=== PATIENT | female | born 1985 | race Caucasian/White ===

== ENCOUNTER → 2017-06-14 14:20 | Outpatient (CLI) | payer OTHER, SELFPAY ==
--- NOTE | 2017-06-14 14:22 | US_ITS ---
STUDY: ULTRASOUND BREAST - RIGHT REASON FOR EXAM: Female, 31 years old. Palpable lump in the right breast. TECHNIQUE: Axial and longitudinal images of the RIGHT breast were performed with a high resolution ultrasound transducer. COMPARISON: None. FINDINGS: RIGHT Breast: There is a 7 mm x 6 mm x 3 mm cyst at the 12:00 position of breast at 2 cm some nipple. There is also evidence of a 4 mm x 3 mm x 2 mm cyst at the 1:00 position in the breast at 2 cm some nipple. US/Breast Limited Unilateral IMPRESSION: 2 small cysts are seen. ASSESSMENT CATEGORY: BIRADS Category 2: Benign. A letter regarding these results will be sent to the patient by the facility within 30 days. Electronically Signed: Williams Myers MD at 15:11 EST Tel [phone], Service support ,
== END ==
PROVIDERS: Family Provider Family Medicine; PCP Family Medicine; Visit Provider Obstetrics & Gynecology
DX: N63.10 Unspecified lump in the right breast, unspecified quadrant (principal)
CPT/HCPCS: 76642

== ENCOUNTER → 2018-04-02 10:27 | Outpatient (CLI) | payer OTHER, SELFPAY ==
[2018-04-02 11:35] LABS: hCG Titer Quant., Serum 7 mIU/mL (<9 non-preg)
== END ==
PROVIDERS: Family Provider Family Medicine; PCP Family Medicine; Referring Provider Obstetrics & Gynecology Reproductive Endocrinology; Visit Provider Obstetrics & Gynecology Reproductive Endocrinology
DX: O02.1 Missed abortion (principal)
CPT/HCPCS: 36415; 84702

== ENCOUNTER → 2018-04-09 10:44 | Outpatient (CLI) | payer OTHER, SELFPAY ==
[2018-04-09 11:21] LABS: hCG Titer Quant., Serum 3 mIU/mL (<9 non-preg)
--- OUTSIDE RECORDS SUMMARY | 2018-06-02 16:11 | XMS RPT_ITS ---
:1985 Author Organization OHIP Care Team Providers Name Role Phone Maryann Conley Attending Unavailable Jose Maria Ro Primary Care Unavailable Uyen Freire Attending Unavailable Uyen Freire Referring Unavailable Jose Maria Ro Primary Care Unavailable Uyen Freire Attending Unavailable Uyen Freire Referring Unavailable Jose Maria Ro Primary Care Unavailable UYEN FREIRE Admitting Unavailable UYEN FREIRE Attending Unavailable ARMEN RO Primary Care Unavailable Uyen Freire Attending Unavailable PROBLEMS PROBLEMS DATE TYPE CONDITION / ATTENDING STATUS SOURCE CODE 04/09/2018 Unknown O02.1 - Missed [place], Active [place] / [facility] O02.1(ICD-10) Hospital Repository 03/20/2018 Active MISSED MASEELALL, Active [facility]02.1(ICD-10) [facility] 03/20/2018 Principle MISSED MASEELALL, Active [facility] Diagnosis / O02.1(ICD-10) [facility] Repository PROCEDURES PROCEDURES No Procedure Records FoundRESULTS RESULTS HCG TITER QUANT., Collected: 04/09/2018 Status: F Source: [place] SER[place] 10:47 AM [facility] [place] [place] REPOSITORY TYPE CODE TESTS RESULT OUT OF RANGE REFERENCE UNITS LAB L700.8000 <9 non-preg mIU/mL Normal HCG 3 QUANT. Performed By: #### L700.8000 #### [facility] [address] [place], [place], [address] HCG TITER QUANT., Collected: 04/02/2018 Status: F Source: [place] 11:10 AM [facility] [place] [place] REPOSITORY TYPE CODE TESTS RESULT OUT OF RANGE REFERENCE UNITS LAB L700.8000 <9 non-preg mIU/mL Normal HCG 7 QUANT. Performed By: #### L700.8000 #### [facility] [address] [place], [place], [address] [facility] SURGICAL PATHOLOGY Observed: 03/06/2018 Status: F Source: [place] DEPARTMENT 12:00 AM [facility] REPOSITORY Name MAGI OSWALD Pathologist: MARY ROSENTHAL MD Date of Procedure: 03/06/2018 Date Received: 03/06/2018 Date Reported 03/08/2018 Submitting Physician: UYEN FREIRE MD Location: [facility] Other External # [id number] FINAL DIAGNOSIS A. PRODUCTS OF CONCEPTION: -- IMMATURE CHORIONIC VILLI AND MEMBRANES. -- GESTATIONAL ENDOMETRIUM AND IMPLANTATION SITE. The gross and/or microscopic findings were reviewed in conjunction with pathology resident, Gillian Duffy M.D. Electronically Signed Out By MARY ROSENTAHL MD/SXR By the signature on this report, the individual or group listed as making the Final Interpretation/Diagnosis certifies that they have reviewed this case. Clinical History: Missed Specimens Submitted As: A: PRODUCTS OF CONCEPTION Other Case Numbers [id number] Gross Description: A: Received in formalin, labeled with the patient?s name and hospital number and products of conception, are multiple fragments of jorge soft tissue and multiple fragments of dark brown friable tissue and clotted blood, aggregating to 9.0 x 8.0 x 3.0 cm. Possible villous tissue is identified, measuring 2.0 x 2.0 x 0.5 cm. Casino Cashier sections are submitted in 3 cassettes. RNN Summary of Cassettes: Specimen Label Site A 1 possible villous tissue 2 non-villous tissue 3 additional villous and non-villous tissue rnn/03/07/2018 Performed By: #### [facility] #### [facility] Surgical Pathology Department [address] [facility] [address] BREAST LIMITED Observed: 06/14/2017 Status: F Source: [place] UNILATERAL 2:22 PM [facility] [place] [place] REPOSITORY [facility] Imaging Services [address] [facility] [place] [address] Breast Limited Unilateral MR#: [id number] Acct: [id number] Name: MAGI OSWALD Rep #: [id number] : 1985 F 31 From: Williams Myers MD PCP: Jose Maria Ro MD Status: REG CLI Study: Breast Limited Unilateral Date of Exam: 06/14/17 Exam# [id number] Ordering Dr: Maryann Conley MD STUDY: ULTRASOUND BREAST - RIGHT REASON FOR EXAM: Female, 31 years old. Palpable lump in the right breast. TECHNIQUE: Axial and longitudinal images of the RIGHT breast were performed with a high resolution ultrasound transducer. COMPARISON: None. FINDINGS: RIGHT Breast: There is a 7 mm x 6 mm x 3 mm cyst at the 12:00 position of breast at 2 cm some nipple. There is also evidence of a 4 mm x 3 mm x 2 mm cyst at the 1:00 position in the breast at 2 cm some nipple. US/Breast Limited Unilateral IMPRESSION: 2 small cysts are seen. ASSESSMENT CATEGORY: BIRADS Category 2: Benign. A letter regarding these results will be sent to the patient by the facility within 30 days. Electronically Signed: Williams Myers MD at 15:11 EST Tel [phone], Service support , CC: Jose Maria Ro MD; Maryann Conley MD Facialist: Signed ALLERGIES ALLERGIES DATE TYPE / CODE NAME / CODE REACTION SEVERITY SOURCE 08/23/2016 Drug No Known Unknown [facility] Allergy/4160 Allergies/F00 [place] [address](SNOMED 4601911(RXNOR Repository CT) M) Drug No Known Drug [facility] Allergy/4160 Allergies/900 Hospital [facility](SNOMED 590(RXNORM) Repository CT) ENCOUNTERS ENCOUNTERS ADMIT/DISCHARGE ACCOUNT NUMBER ADMITTING ENCOUNTER LOCATION SOURCE CLASS 04/09/2018 [id number] Ambulatory [facility] ding:LAB Repository 04/02/2018 [id number] Ambulatory [facility] ding:LAB Repository 03/06/2018 [id number] Ambulatory [facility] Repository 03/06/2018/03/06/20 [id number] [facility] Building:[place] [address] UYEN PACURoom: OR [facility] RMBed: [facility] Repository 06/14/2017 [id number] Ambulatory [facility] ding:[facility] Repository PAYERS PAYERS ENCOUNTER GUARANTOR PAYER SUBSCRIBER SOURCE 04/09/2018 MAGI Gar [facility] Insurance:MUTUAL MOTTAYAWDOB: [address] [id number] [place], [place] [address]Uel: EHPPolicy Number: Repository [id number] (HP) Date:1645-11-37[address] [address]YSQCS[place]KF, [place] [address]SH: 04/09/2018 Secondary NOT GIVENUNK [place] Insurance:SELF PAY [facility] Number: Effective Repository Date:2018-04-09 04/02/2018 MAGI Cong [facility] Insurance:MUTUAL MOTTAYAWDOB: [address] [id number] [place], [place] [address]Gsx: EHPPolicy Number: Repository [id number] (HP) Date:0857-59-45WK [facility] [address]JF, [place] [address]ST: 04/02/2018 Secondary NOT GIVENUNK [place] Insurance:SELF PAY [facility] Number: Effective Repository Date:2018-04-02 03/06/2018 MAGI [facility] MOTTAYAWDOB: Insurance:Medical MottayawDOB: [facility] [id number] Repository [facility] Number: [facility]JEROMESAS[facility], [id number] [place] [address]Yor: Date:Plan Name:Health () 03/06/2018 MAGI [facility] Insurance:[facility] MOTTAYAWDOB: [facility] MOTTAYAWDOB: [facility] Number: [id number] Repository [facility] [address] [id number] [facility] [address] Date:2357-60-52KU [address] [place] [address]Rqk: [address], [place] [address]Ebl: [id number]: [phone]) (HP) [phone] (HP) (WP) 06/14/2017 Magi Cong [facility] Rick [facility] Insurance:MUTUAL [place] HealthyawDOB: [address] [id number] [place], [place] [address]Vyy: EHPPolicy Number: Repository [id number] () Date:2042-61-04[address] [address] [id number]: 06/14/2017 Secondary NOT GIVENUNK [place] Insurance:SELF PAY [facility] Number: Effective Repository Date:2017-06-09
== END ==
PROVIDERS: Family Provider Family Medicine; PCP Family Medicine; Referring Provider Obstetrics & Gynecology Reproductive Endocrinology; Visit Provider Obstetrics & Gynecology Reproductive Endocrinology
DX: O02.1 Missed abortion (principal); Z3A.00 Weeks of gestation of pregnancy not specified
CPT/HCPCS: 36415; 84702

== ENCOUNTER → 2018-09-04 13:50 | Outpatient (CLI) | payer OTHER, SELFPAY ==
[2018-08-29 09:31] VITALS: BMI 28.7
--- NOTE | 2018-09-04 13:51 | US_ITS ---
STUDY: SECOND AND THIRD TRIMESTER OBSTETRICAL ULTRASOUND - LIMITED REASON FOR EXAM: Female, 33 years old. Routine survey. LMP: May 20, 2018. PRIOR ULTRASOUND: None. TECHNIQUE: Transabdominal and Transvaginal TECHNICAL QUALITY: Adequate. FINDINGS: There is a single intrauterine fetus. The fetus is in a cephalic presentation. There is demonstrated cardiac activity with a heart rate of 156 bpm. There is a normal amniotic fluid volume. The largest amniotic fluid pocket measures 5.1 cm x 1.9 cm. The amniotic fluid index (NARAYAN) is normal. The placenta is posterior and low lying but not previa in location. There are Grade 0 placental changes. The cervix measures 3.2 cm in length. BIOMETRY: BPD: 3.01 cm: 15 weeks, 4 days HC: 11.65 cm: 15 weeks, 6 days AC: 10.08 cm: 16 weeks, 1 days FL: 1.8 cm: 15 weeks, 3 days Age by LMP: 15 weeks, 2 days. FATOU by LMP: February 24, 2019. age by current US: 15 weeks, 5 days. FATOU by current US: February 21, 2019. Estimated weight: 133 grams, +/- 19 grams, 69 percentile. Gender: Indeterminant US/OB Limited With Biometrics IMPRESSION: Single live intrauterine gestation with a mean gestational age of 15 weeks and 5 days. There is a posterior low-lying placenta. Follow-up is recommended. Electronically Signed: Williams Myers, at 13:09 EDT , Service support ,
== END ==
PROVIDERS: Family Provider Family Medicine; PCP Family Medicine; Referring Provider Nurse Practitioner Women's Health; Visit Provider Nurse Practitioner Women's Health
DX: O09.90 Supervision of high risk pregnancy, unspecified, unspecified trimester (principal); Z3A.00 Weeks of gestation of pregnancy not specified
CPT/HCPCS: 76816

== ENCOUNTER → 2018-11-21 14:50 | Outpatient (CLI) | payer OTHER, SELFPAY ==
[2018-11-21 14:44] VITALS: BMI 29.6
[2018-11-21 15:46] LABS: Absolute Lymphocyte Count 1.82 X10^3/uL (0.83-4.51); Absolute Neutrophil Count 10.1 X10^3/uL (2.0-7.7); Basophil# 0.03 X10^3/uL; Basophil% 0.2 % (0-1); Eosinophil# 0.11 X10^3/uL; Eosinophils% 0.9 % (0-5); Hematocrit 34.2 % (37-47); Hemoglobin 11.4 g/dL (12.0-15.0); Lymphocyte # 1.82 X10^3/ul (4.0); Lymphocyte % 14.3 % (19-41); Mean Corp Hgb Conc 33.3 g/dL (32-36); Mean Corpuscular Hgb 31.7 pg (27.0-32.0); Mean Platelet Vol. 10.3 fl (6.2-12.0); Monocyte# 0.58 X10^3/uL; Monocyte% 4.6 % (0-10); NRBC Flagged by Analyzer 0 % (0-5); Neutrophil # 10.07 X10^3/uL (2.7-7.7); Neutrophil % 79.1 % (47-70); Platelet Count 179 K/mm3 (150-450); RBC Distribution Width CV 13.1 % (11.6-14.6); RBC Distribution Width SD 45.1 fl (35.1-43.9); White Blood Count 12.7 K/mm3 (4.4-11.0)
[2018-11-21 15:55] LABS: Glucose Challenge Gest 1H 50g 114 mg/dL (70-140)
== END ==
PROVIDERS: Family Provider Family Medicine; PCP Family Medicine; Referring Provider Nurse Practitioner Women's Health; Visit Provider Nurse Practitioner Women's Health
DX: O09.90 Supervision of high risk pregnancy, unspecified, unspecified trimester (principal); Z3A.00 Weeks of gestation of pregnancy not specified
CPT/HCPCS: 36415; 82950; 85025

== ENCOUNTER 2019-01-03 15:04 | Outpatient (CLI) | payer OTHER, SELFPAY ==
[2018-12-25 09:19] VITALS: BMI 29.6
[2019-01-03 15:41] VITALS: BMI 33.3
[2019-01-03 16:17] LABS: Absolute Lymphocyte Count 2.12 X10^3/uL (0.83-4.51); Absolute Neutrophil Count 10.6 X10^3/uL (2.0-7.7); Basophil# 0.04 X10^3/uL; Basophil% 0.3 % (0-1); Eosinophil# 0.15 X10^3/uL; Eosinophils% 1.1 % (0-5); Hematocrit 33.1 % (37-47); Hemoglobin 11.2 g/dL (12.0-15.0); Lymphocyte # 2.12 X10^3/ul (4.0); Lymphocyte % 14.9 % (19-41); Mean Corp Hgb Conc 33.8 g/dL (32-36); Mean Corpuscular Hgb 31.7 pg (27.0-32.0); Mean Corpuscular Volume 93.8 fL (81-99); Mean Platelet Vol. 10.6 fl (6.2-12.0); Monocyte# 1.06 X10^3/uL; Monocyte% 7.5 % (0-10); NRBC Flagged by Analyzer 0 % (0-5); Neutrophil # 10.63 X10^3/uL (2.7-7.7); Neutrophil % 74.8 % (47-70); Platelet Count 176 K/mm3 (150-450); RBC Distribution Width CV 12.6 % (11.6-14.6); RBC Distribution Width SD 42.8 fl (35.1-43.9); Red Blood Count 3.53 M/mm3 (4.2-5.4); White Blood Count 14.2 K/mm3 (4.4-11.0)
[2019-01-03 16:51] LABS: Fibrinogen 465 mg/dl (203-444)
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
== END 2019-01-03 19:57 | disposition home or self-care (01) ==
LOC: WPOUT 15:06 → WP 15:40
PROVIDERS: Family Provider Family Medicine; PCP Family Medicine; Referring Provider Obstetrics & Gynecology; Visit Provider Obstetrics & Gynecology
DX: Z04.1 Encounter for examination and observation following transport accident (principal); O26.899 Other specified pregnancy related conditions, unspecified trimester; Z3A.00 Weeks of gestation of pregnancy not specified
CPT/HCPCS: 36415; 59025; 59050; 85025; 85384; 99218; G0378

== ENCOUNTER → 2019-02-01 13:17 | Outpatient (CLI) | payer OTHER, SELFPAY ==
[2019-02-01 10:08] VITALS: BMI 33.3
== END ==
PROVIDERS: Family Provider Family Medicine; PCP Family Medicine; Visit Provider Obstetrics & Gynecology
DX: Z34.93 Encounter for supervision of normal pregnancy, unspecified, third trimester (principal); Z3A.36 36 weeks gestation of pregnancy
CPT/HCPCS: 87081

== ENCOUNTER 2019-02-28 15:20 | Outpatient (CLI) | payer OTHER, SELFPAY ==
[2019-01-24 10:29] VITALS: BMI 33.3
[2019-02-28 14:36] VITALS: BMI 33.3
[2019-02-28 15:46] VITALS: BMI 35.6
[2019-02-28 15:51] LABS: Protein, Urine (Random) 28.6 mg/dL (<11.9); Protein:Creat Ratio 117 mg/g CRE (0-200)
[2019-02-28] MEDS: 0.9% Saline Lock 10 ML Syringe IV (16:28)
[2019-02-28 18:24] LABS: Absolute Lymphocyte Count 1.86 X10^3/uL (0.83-4.51); Basophil# 0.03 X10^3/uL; Basophil% 0.2 % (0-1); Eosinophils% 0.8 % (0-5); Hematocrit 35.5 % (37-47); Hemoglobin 11.9 g/dL (12.0-15.0); Lymphocyte # 1.86 X10^3/ul (4.0); Lymphocyte % 15.3 % (19-41); Mean Corp Hgb Conc 33.5 g/dL (32-36); Mean Corpuscular Hgb 31.6 pg (27.0-32.0); Mean Corpuscular Volume 94.2 fL (81-99); Mean Platelet Vol. 11.2 fl (6.2-12.0); Monocyte# 1.03 X10^3/uL; Monocyte% 8.5 % (0-10); NRBC Flagged by Analyzer 0 % (0-5); Neutrophil % 74.4 % (47-70); Platelet Count 167 K/mm3 (150-450); RBC Distribution Width CV 13.4 % (11.6-14.6); RBC Distribution Width SD 45.4 fl (35.1-43.9); Red Blood Count 3.77 M/mm3 (4.2-5.4); White Blood Count 12.1 K/mm3 (4.4-11.0)
[2019-02-28 18:40] LABS: Prothrombin Time (Protime)PT. 12.6 SECONDS (11.7-14.9)
[2019-02-28 18:41] LABS: Partial Thromboplast Time 24.4 Seconds (24.1-36.2)
[2019-02-28 19:10] LABS: AST(SGOT) 18 U/L (15-37); Alanine Aminotransfer ALT/SGPT 22 U/L (13-56); Creatinine, Serum 0.73 mg/dL (0.55-1.02); EST Glomerular Filtration Rate 98 mL/min (>60); Est Glom Filt Rate - Afr Amer 119 mL/min (>60); Estimated Creatinine Clearance 107.59 ml/min; Uric Acid 7.3 mg/dL (2.6-6.0)
--- NOTE | 2019-03-02 01:40 | OB.TRI.PN_ITS ---
Progress Notes Date of Service: 02/28/19 Progress Note: Patient presents for triage evaluation secondary to elevated blood pressure and FHT: 130 Moderate variability reactive no decelerations category I tracing [place]: Irregular contractions Assessment and plan: Elevated blood pressure and initially in the office all repeat blood pressures normal here and negative proteinuria and normal labs reactive NST, reassuring maternal and status patient discharged to home to follow-up induction of labor at 41 weeks. See problem list details for additional plan information. Laboratory Studies: Laboratory Tests 02/28/19 02/28/19 02/28/19 Range/Units 16:15 16:15 16:15 WBC (4.4-11.0) K/mm3 RBC (4.2-5.4) M/mm3 Hgb (12.0-15.0) g/dL Hct (37-47) % MCV (81-99) fL MCH (27.0-32.0) pg MCHC (32-36) g/dL RDW Std Deviation (35.1-43.9) fl RDW Coeff of Suad (11.6-14.6) % Plt Count (150-450) K/mm3 MPV (6.2-12.0) fl Immature Gran % (Auto) (0.0-0.9) % Neut % (Auto) (47-70) % Lymph % (Auto) (19-41) % [place] % (Auto) (0-10) % Eos % (Auto) (0-5) % Baso % (Auto) (0-1) % Absolute Neuts (auto) (2.0-7.7) X10^3/uL Absolute Lymphs (auto) (0.83-4.51) X10^3/uL Nucleated RBC % (0-5) % PT 12.6 (11.7-14.9) SECONDS INR 1.0 APTT 24.4 (24.1-36.2) Seconds Creatinine 0.73 (0.55-1.02) mg/dL Estim Creat Clear Calc 107.59 ml/min Est GFR (MDRD) Af Amer 119 (>60) mL/min Est GFR (MDRD) Non-Af 98 (>60) mL/min Uric Acid 7.3 H (2.6-6.0) mg/dL AST 18 (15-37) U/L ALT 22 (13-56) U/L U Random Total Protein (<11.9) mg/dL Urine Creatinine (NO RANGE EST.) mg/dL Protein/Creatinin Ratio (0-200) mg/g CRE Blood Type O POSITIVE Antibody Screen NEGATIVE 02/28/19 02/28/19 Range/Units 16:15 15:00 WBC 12.1 H (4.4-11.0) K/mm3 RBC 3.77 L (4.2-5.4) M/mm3 Hgb 11.9 L (12.0-15.0) g/dL Hct 35.5 L (37-47) % MCV 94.2 (81-99) fL MCH 31.6 (27.0-32.0) pg MCHC 33.5 (32-36) g/dL RDW Std Deviation 45.4 H (35.1-43.9) fl RDW Coeff of Suad 13.4 (11.6-14.6) % Plt Count 167 (150-450) K/mm3 MPV 11.2 (6.2-12.0) fl Immature Gran % (Auto) 0.800 (0.0-0.9) % Neut % (Auto) 74.4 H (47-70) % Lymph % (Auto) 15.3 L (19-41) % [place] % (Auto) 8.5 (0-10) % Eos % (Auto) 0.8 (0-5) % Baso % (Auto) 0.2 (0-1) % Absolute Neuts (auto) 9.0 H (2.0-7.7) X10^3/uL Absolute Lymphs (auto) 1.86 (0.83-4.51) X10^3/uL Nucleated RBC % 0 (0-5) % PT (11.7-14.9) SECONDS INR APTT (24.1-36.2) Seconds Creatinine (0.55-1.02) mg/dL Estim Creat Clear Calc ml/min Est GFR (MDRD) Af Amer (>60) mL/min Est GFR (MDRD) Non-Af (>60) mL/min Uric Acid (2.6-6.0) mg/dL AST (15-37) U/L ALT (13-56) U/L U Random Total Protein 28.6 H (<11.9) mg/dL Urine Creatinine 244.00 (NO RANGE EST.) mg/dL Protein/Creatinin Ratio 117 (0-200) mg/g CRE Blood Type Antibody Screen - Problem List (1) Elevated blood pressure affecting in third trimester, antepartum Status: Acute Multi Select Codes - Urinary/Genital Urinary/Genital CPT Codes: 26490-07 non-stress test Interp
== END 2019-02-28 19:45 | disposition home or self-care (01) ==
LOC: WPOUT 03-01 09:24 → WP 03-01 09:24
PROVIDERS: Family Provider Family Medicine; PCP Family Medicine; Referring Provider Obstetrics & Gynecology; Visit Provider Obstetrics & Gynecology
DX: O26.893 Other specified pregnancy related conditions, third trimester (principal); R03.0 Elevated blood-pressure reading, without diagnosis of hypertension; Z3A.00 Weeks of gestation of pregnancy not specified
CPT/HCPCS: 59025; 82565; 82570; 84156; 84450; 84460; 84550; 85025; 85610; 85730; 86850; 86900; 86901; A4216

== ENCOUNTER 2019-03-03 08:00 | Inpatient (IN) | payer OTHER, SELFPAY ==
[2019-03-03 08:32] VITALS: BMI 35.6
[2019-03-03 08:46] LABS: Absolute Lymphocyte Count 1.82 X10^3/uL (0.83-4.51); Absolute Neutrophil Count 8.5 X10^3/uL (2.0-7.7); Basophil# 0.04 X10^3/uL; Basophil% 0.3 % (0-1); Eosinophil# 0.12 X10^3/uL; Hematocrit 34.8 % (37-47); Hemoglobin 11.8 g/dL (12.0-15.0); Lymphocyte # 1.82 X10^3/ul (4.0); Lymphocyte % 15.6 % (19-41); Mean Corp Hgb Conc 33.9 g/dL (32-36); Mean Corpuscular Hgb 31.6 pg (27.0-32.0); Mean Platelet Vol. 10.8 fl (6.2-12.0); Monocyte# 1.05 X10^3/uL; NRBC Flagged by Analyzer 0 % (0-5); Neutrophil # 8.53 X10^3/uL (2.7-7.7); Neutrophil % 73.3 % (47-70); Platelet Count 164 K/mm3 (150-450); RBC Distribution Width CV 13.4 % (11.6-14.6); RBC Distribution Width SD 44.9 fl (35.1-43.9); Red Blood Count 3.74 M/mm3 (4.2-5.4); White Blood Count 11.7 K/mm3 (4.4-11.0)
[2019-03-03] MEDS: 0.9% Saline Lock 10 ML Syringe IV ×2 (09:07→21:06)
[2019-03-03] MEDS: miSOPROStol 25 MCG TABLET VAGINAL (09:12)
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
[2019-03-03] MEDS: miSOPROStol 50 MCG TABLET VAGINAL (13:19)
[2019-03-03] MEDS: Acetaminophen 325 MG Tablet PO (17:06)
[2019-03-03] MEDS: Lactated Ringers 1,000 ML 50 ML IV (17:53)
[2019-03-03] MEDS: Lactated Ringers 500 ML 999 ML IV ×3 (18:03→22:33)
[2019-03-03] MEDS: Oxytocin 30 units/NS 500 ml 30 UNITS/500 ML IV.SOLN IV (18:45)
[2019-03-03] MEDS: 0.9% Normal Saline 100 ML IV.SOLN. INTRA-UTER (18:48)
[2019-03-03] MEDS: Nalbuphine 10 MG/ML Ampul IV (18:59)
[2019-03-03] MEDS: Ondansetron 4 MG/2 ML Vial IV (21:06)
[2019-03-03] MEDS: fentaNYL-bupivacaine (epidural) 100 ML BAG EPIDURAL (22:23)
[2019-03-03] MEDS: ePHEDrine Sulfate 50 MG/ML Ampul 10 MG IM (22:42)
[2019-03-03] MEDS: ePHEDrine Sulfate 50 MG/ML Ampul 10 MG IV (22:45)
[2019-03-04] VITALS (12 sets, daily range): BP systolic 98–138; BP diastolic 62–85; PULSE 112–134; RESP 16–20; TEMP 36.2–37.1; O2SAT 97–99
[2019-03-04] MEDS: fentaNYL-bupivacaine (epidural) 100 ML BAG EPIDURAL ×3 (03:09→13:06)
[2019-03-04] MEDS: 0.9% Saline Lock 10 ML Syringe IV ×2 (05:34→16:06)
--- NOTE | 2019-03-04 06:27 | PCM.PN.BLA ---
Progress Note Patient is status post Cytotec and Akers bulb. Akers bulb out and patient has made some further cervical change. heart tones category 1 overall reassuring. AROM blood-tinged fluid. Bleeding suspected to be from cervical effacement and dilation. Overall reassuring status. Reviewed positioning suggestions with nursing and will proceed with Pitocin per protocol. IUPC placed.
[2019-03-04] MEDS: Lactated Ringers 1,000 ML 200 ML IV ×2 (08:38→13:49)
[2019-03-04] MEDS: Mag Hydrox/Al Hydrox/Simeth 30 ML UDC PO (11:15)
[2019-03-04] MEDS: Ondansetron 4 MG/2 ML Vial IV (16:06)
[2019-03-04] MEDS: Lactated Ringers 500 ML 999 ML IV ×2 (16:25→17:25)
[2019-03-04] MEDS: Sodium Citrate/Citric Acid 30 ML UDC PO (17:36)
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
[2019-03-04] MEDS: Cefazolin 2 GM in 0.9% Normal Saline 100 ML IV (18:01)
--- NOTE | 2019-03-04 18:38 | OP.PCM_ITS ---
Problem List (1) Post-dates Status: Acute (2) Influenza vaccine administered Status: Acute Comment: 02/08/2019 (3) Supervision of high risk , antepartum Status: Acute Comment: PRR FATOU 02/24/19 girl Ronit Spouse: Rick Frozen Embryo transfer (4) Status: Acute Qualifiers: Comment: RGI transfer, nl anatomy and echo. (5) Infertility Status: Acute Comment: IVF Report of Operation Date of Procedure: 03/04/19 Pre-Operative Diagnosis: iol postdates, failed IOL, tachycardia cat II tracing, suspected cpd Post-Operative Diagnosis: same plus confirmed CPD Surgery/Procedure Performed:: Primary low transverse section Description of Surgical Findings:: Narrow pelvis with narrow pelvic inlet fetus ROP presentation wealth management advisor: Cris Velasco Type of Anesthesia:: Epidural Special Medications: none Specimen's removed: Female 8 pounds 10 ounces Drains: elder Estimated Blood Loss (mL): 1200 Fluids Replaced: Crystalloid Description of Procedure: Patient presented for induction of labor secondary to postdates. She underwent 12 hours of Cytotec cervical ripening followed by Elder bulb and Pitocin for induction of labor. Membranes were ruptured artificially and labor progressed. Patient experienced an arrest of dilation at 6 to 7 cm for 6 hours. Pitocin was unable to be used the last 2 hours of that due to tachycardia and intermittent periods of minimal variability. After reevaluation and intervention tachycardia was persistent and baseline went from 180s up to 210s and CPD was suspected due to arrest of descent in the pelvis and dilation. Significant persistent cervical swelling was noted. It was discussed with the patient and her and the decision to proceed with a primary was made. The patient was placed in the dorsal supine position with leftward tilt. Patient was prepped and draped in the normal sterile fashion. Pfannenstiel skin incision was made with the scalpel and carried through to the underlying layer of fascia with the scalpel. Fascia was nicked in the midline and the incision extended laterally. The rectus bellies were dissected off superiorly and inferiorly with out complication bluntly. The peritoneum was entered digitally. The incision was stretched and a low transverse uterine incision was made with the scalpel. The infant's head was delivered atraumatically followed by the anterior and posterior shoulders without complication the rest of the infant delivered. The cord was clamped and cut and the infant was handed off to awaiting nurse. The placenta was delivered spontaneously immediately following and was noted to be intact and have a three-vessel cord. The uterus was exteriorized cleared of all clots and debris. The uterine incision was noted to be significantly inferior however no cervical extension was noted. Initial blood loss was more than usual due to large sinuses and the uterine vessels which became hemostatic with closure. The incision was closed in a single layer closure due to the close proximity of the bladder using #1 Monocryl. The o varies and fallopian tubes were noted to be within normal limits. The uterus was returned to the maternal abdomen and gutters were cleared of all clots and debris. The peritoneum was closed with 3-0 Monocryl in a running fashion. Gloves were changed prior to fascial closure. Fascia was closed with 0 PDS in a running fashion. Subcutaneous tissue was copiously irrigated and the skin was closed with 3-0 Monocryl in a subcuticular fashion. Mepilex dressing was applied without complication. Patient was taken to recovery in stable condition. Grafts/Implants Used: none - Complications Mild hemorrhage due to intraoperative blood loss - Admit VTE Documentation VTE Present on Admission: No Multi Select Codes - Urinary/Genital Urinary/Genital CPT Codes: 42137 Delivery [facility]
[2019-03-04] MEDS: Oxytocin 30 units/NS 500 ml 30 UNITS/500 ML IV.SOLN 167 UNITS IV (18:58)
--- NOTE | 2019-03-04 21:30 | NURSING ---
Epidural catheter removed, blue tip intact.
[2019-03-05] VITALS (14 sets, daily range): BP systolic 103–122; BP diastolic 50–69; PULSE 95–118; RESP 16–18; TEMP 36.6–37.3; O2SAT 97–100
[2019-03-05] MEDS: Ketorolac 30 MG/ML Syringe IV ×3 (00:17→13:11)
[2019-03-05] MEDS: Lactated Ringers 1,000 ML 100 ML IV (00:17)
[2019-03-05] MEDS: Lactated Ringers 500 ML 999 ML IV (02:30)
--- NOTE | 2019-03-05 02:30 | NURSING ---
500cc fluid bolus started at this time for low urine output less than 30/hr over the past 2 hours. Previous verbal order from Dr. Carmona for fluid bolus if urine output inadequate. RN will continue to assess closely overnight.
[2019-03-05 06:09] LABS: Absolute Lymphocyte Count 1.42 X10^3/uL (0.83-4.51); Absolute Neutrophil Count 11.1 X10^3/uL (2.0-7.7); Basophil# 0.02 X10^3/uL; Basophil% 0.1 % (0-1); Eosinophil# 0.07 X10^3/uL; Eosinophils% 0.5 % (0-5); Lymphocyte # 1.42 X10^3/ul (4.0); Lymphocyte % 10.3 % (19-41); Mean Corp Hgb Conc 33.3 g/dL (32-36); Mean Corpuscular Hgb 32.4 pg (27.0-32.0); Mean Corpuscular Volume 97.2 fL (81-99); Mean Platelet Vol. 10.6 fl (6.2-12.0); NRBC Flagged by Analyzer 0 % (0-5); Neutrophil # 11.11 X10^3/uL (2.7-7.7); Neutrophil % 80.6 % (47-70); Platelet Count 127 K/mm3 (150-450); RBC Distribution Width CV 13.6 % (11.6-14.6); RBC Distribution Width SD 47.4 fl (35.1-43.9); Red Blood Count 2.47 M/mm3 (4.2-5.4); White Blood Count 13.8 K/mm3 (4.4-11.0)
[2019-03-05] MEDS: Senna/Docusate Sodium 1 Tablet PO (06:13)
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
[2019-03-05] MEDS: 0.9% Saline Lock 10 ML Syringe IV (13:11)
[2019-03-05 13:37] LABS: Absolute Lymphocyte Count 1.56 X10^3/uL (0.83-4.51); Absolute Neutrophil Count 10.3 X10^3/uL (2.0-7.7); Basophil# 0.02 X10^3/uL; Basophil% 0.2 % (0-1); Eosinophil# 0.09 X10^3/uL; Eosinophils% 0.7 % (0-5); Hematocrit 24.1 % (37-47); Hemoglobin 7.9 g/dL (12.0-15.0); Lymphocyte # 1.56 X10^3/ul (4.0); Lymphocyte % 11.9 % (19-41); Mean Corp Hgb Conc 32.8 g/dL (32-36); Mean Corpuscular Hgb 31.6 pg (27.0-32.0); Mean Corpuscular Volume 96.4 fL (81-99); Mean Platelet Vol. 10.4 fl (6.2-12.0); Monocyte# 1.04 X10^3/uL; NRBC Flagged by Analyzer 0 % (0-5); Neutrophil # 10.26 X10^3/uL (2.7-7.7); Neutrophil % 78.4 % (47-70); Platelet Count 130 K/mm3 (150-450); RBC Distribution Width CV 13.7 % (11.6-14.6); RBC Distribution Width SD 47.7 fl (35.1-43.9); White Blood Count 13.1 K/mm3 (4.4-11.0)
[2019-03-05] MEDS: oxyCODONE 5 MG Tablet PO ×2 (17:21→21:45)
[2019-03-05] MEDS: Naproxen 250 MG Tablet 500 MG PO (18:32)
[2019-03-06] MEDS: Naproxen 250 MG Tablet 500 MG PO ×3 (02:07→22:43)
[2019-03-06 02:25] VITALS: PULSE 110; RESP 16; TEMP 37.2
[2019-03-06] MEDS: oxyCODONE 5 MG Tablet PO ×3 (05:39→18:49)
[2019-03-06 06:12] LABS: Hematocrit 23.9 % (37-47); Hemoglobin 7.8 g/dL (12.0-15.0); Mean Corp Hgb Conc 32.6 g/dL (32-36); Mean Corpuscular Hgb 31.6 pg (27.0-32.0); Mean Corpuscular Volume 96.8 fL (81-99); Mean Platelet Vol. 10.7 fl (6.2-12.0); Platelet Count 153 K/mm3 (150-450); RBC Distribution Width CV 13.7 % (11.6-14.6); RBC Distribution Width SD 47.8 fl (35.1-43.9); Red Blood Count 2.47 M/mm3 (4.2-5.4); White Blood Count 14.2 K/mm3 (4.4-11.0)
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
[2019-03-06 08:26] VITALS: BP 119/65; PULSE 109; RESP 16; TEMP 36.8
[2019-03-06] MEDS: Prenatal Vits Tablet 1 TABLET PO (10:07)
[2019-03-06] MEDS: Senna/Docusate Sodium 1 Tablet PO (10:07)
[2019-03-06 13:04] VITALS: BP 108/61; PULSE 86; RESP 15; TEMP 36.7
--- NOTE | 2019-03-06 13:40 | NURSING ---
all charting done by student nurse reviewed and it is complete.
[2019-03-06] MEDS: Ferrous Sulfate 325 MG Tablet PO (14:40)
[2019-03-06 19:52] VITALS: BP 130/75; PULSE 101; RESP 18; TEMP 36.9; O2SAT 97
[2019-03-07 02:11] VITALS: BP 119/68; PULSE 103; RESP 16; TEMP 36.4; O2SAT 97
[2019-03-07] MEDS: oxyCODONE 5 MG Tablet PO (03:51)
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
--- NOTE | 2019-03-07 07:48 | DCINST_ITS ---
Additional Instructions: If you experience any of the following, contact your healthcare provider. * Bleeding that soaks a pad every hour for 2 hours * Fever 100.4 or higher * Unrelieved incision or abdominal pain * Swelling, redness, discharge or bleeding from your incision or episiotomy site * Your incision begins to separate * Problems urinating (including inability to urinate or burning while urinating). * Visual changes * Severe headache * Flu-like symptoms * Pain or redness in one of both of your breasts * Pain, warmth, tenderness or swelling in your legs, especially the calf area * Frequent nausea and vomiting * Symptoms of depression or anxiety If you experience any of the following, call 911 or go to the nearest Emergency Room. * Chest pain * Problems breathing * Seizure activity * Partial or complete paralysis of a body part, slurred speech, weakness or drooping of the face, or a sudden inability to walk or hold your balance Allergies/Adverse Reactions: Allergies ondansetron [From Zofran] Allergy (Verified 03/05/19 14:44) Hives Medications to take at Discharge vitamin,calcium,srjtdwlc-pzpp-rewxz acid tablet 1 tab PO DAILY 08/29/18 Naproxen [Naprosyn] 500 mg PO BID PRN PRN #60 tab 03/07/19 Oxycodone HCl/Acetaminophen [Percocet 5/325] 1 - 2 tablet PO Q4H PRN PRN 3 Days #15 tablet 03/07/19 The following prescriptions were given: Naproxen [Naprosyn] 500 mg PO BID PRN PRN #60 tab PRN Reason: Pain Transmission Status: Pending to [facility] Oxycodone HCl/Acetaminophen [Percocet 5/325] 1 - 2 tablet PO Q4H PRN PRN 3 Days #15 tablet PRN Reason: Pain Transmission Status: Sent to [facility] Follow-Up: Call to make an appointment with your doctor for an incision check in 1-2 weeks. You will also need a 6 week post- follow up appointment. Test results from this visit will be discussed in further detail at your follow- up appointment, if applicable. Primary Care Physician: Jose Maria Mcdonough MD [Primary Care Provider] -
--- NOTE | 2019-03-07 07:48 | PCM.DCCSEC ---
Additional Instructions: If you experience any of the following, contact your healthcare provider. Bleeding that soaks a pad every hour for 2 hours Fever 100.4 or higher Unrelieved incision or abdominal pain Swelling, redness, discharge or bleeding from your incision or episiotomy site Your incision begins to separate Problems urinating (including inability to urinate or burning while urinating). Visual changes Severe headache Flu-like symptoms Pain or redness in one of both of your breasts Pain, warmth, tenderness or swelling in your legs, especially the calf area Frequent nausea and vomiting Symptoms of depression or anxiety If you experience any of the following, call 911 or go to the nearest Emergency Room. Chest pain Problems breathing Seizure activity Partial or complete paralysis of a body part, slurred speech, weakness or drooping of the face, or a sudden inability to walk or hold your balance Allergies/Adverse Reactions: Allergies ondansetron [From Zofran] Allergy (Verified 03/05/19 14:44) Hives Medications to take at Discharge vitamin,calcium,oxtfbeub-jymy-sqlrx acid tablet 1 tab PO DAILY 08/29/18 Naproxen [Naprosyn] 500 mg PO BID PRN PRN #60 tab 03/07/19 Oxycodone HCl/Acetaminophen [Percocet 5/325] 1 - 2 tablet PO Q4H PRN PRN 3 Days #15 tablet 03/07/19 The following prescriptions were given: Naproxen [Naprosyn] 500 mg PO BID PRN PRN #60 tab PRN Reason: Pain Transmission Status: Pending to [facility] Oxycodone HCl/Acetaminophen [Percocet 5/325] 1 - 2 tablet PO Q4H PRN PRN 3 Days #15 tablet PRN Reason: Pain Transmission Status: Sent to [facility] Follow-Up: Call to make an appointment with your doctor for an incision check in 1-2 weeks. You will also need a 6 week post- follow up appointment. Test results from this visit will be discussed in further detail at your follow-up appointment, if applicable. Primary Care Physician: Jose Maria Mcdonough MD [Primary Care Provider] -
--- NOTE | 2019-03-07 07:49 | DS.PCM_ITS ---
Discharge Date and Diagnosis - Problem List Patient Problems: Active and Suspected Problems (Last Reviewed 02/28/19 @ 14:35 by [place]) Post-dates (Acute) Date of Admission: 03/24/17 - Primary Discharge Diagnosis Active and Suspected Problems (Last Reviewed 02/28/19 @ 14:35 by [place]) Post-dates (Acute) Hospital Course and Treatment Consultations 03/03/19 08:23 Consult: Anesthesia Routine Comment: Reason For Exam: Labor Operations: - - Primary c section, CPD, FTP. Routine post CS care. Summary of Care Provided: The patient is a 33 year old F [] Patient Problems: Active and Suspected Problems (Last Reviewed 02/28/19 @ 14:35 by [place]) Post-dates (Acute) - Physical Exam Vitals/I&O's: Vital Signs Temp Pulse Resp BP Pulse Ox 97.6 F L 103 H 16 119/68 97 03/07/19 02:11 03/07/19 02:11 03/07/19 02:11 03/07/19 02:11 03/07/19 02:11 Oxygen Delivery Method Room Air Weight: 227 lb 8.273 oz Body Mass Index (BMI) 35.6 Intake and Output for Last 24 Hours 03/05/19 03/06/19 03/07/19 23:59 23:59 23:59 Intake Total 2000.00 / 2000.00 Output Total 3300 / 3300 500 / 500 Balance -1300.00 / -1300.00 -500 / -500 Current Medications Acetaminophen (Tylenol) 1,000 mg PO Q8H PRN PRN PRN Reason: Pain Score 1-3/10 Bisacodyl (Dulcolax) 10 mg RECTAL UD PRN PRN Reason: If no BM Dibucaine (Dibucaine) 1 applic TOPICAL TID PRN PRN; Protocol PRN Reason: Discomfort Ferrous Sulfate (Ferrous Sulfate) 325 mg PO DAILY@1200 RAEANN Last Admin: 03/06/19 14:40 Dose: 325 mg Documented by: Hydrocortisone (Hytone) 1 applic TOPICAL TID PRN PRN; Protocol PRN Reason: Discomfort Methylergonovine Maleate (Methergine) 0.2 mg IM X1 PRN PRN Reason: Excess bleeding/uterine atony Naproxen (Naprosyn) 500 mg PO Q8H PRN PRN PRN Reason: Pain Score 1-3/10 Last Admin: 03/06/19 22:43 Dose: 500 mg Documented by: Oxycodone HCl (Oxyir) 5 - 10 mg PO Q4H PRN PRN PRN Reason: Pain Score 4-10/10 Last Admin: 03/07/19 03:51 Dose: 10 mg Documented by: Multivit/Folic Acid/Iron (Prenatabs Fa) 1 tablet PO DAILY@1200 RAEANN Last Admin: 03/06/19 10:07 Dose: 1 tablet Documented by: Senna/Docusate Sodium (Senokot-S, Georgina-Colace) 1 - 2 tablet PO DAILY PRN PRN PRN Reason: Constipation Last Admin: 03/06/19 10:07 Dose: 2 tablet Documented by: Simethicone (Mylicon) 80 mg PO PCHS PRN PRN Reason: Indigestion/Stomach pain Sodium Chloride () 5 - 15 ml IV UD PRN PRN Reason: SALINE FLUSH Last Admin: 03/05/19 13:11 Dose: 10 ml Documented by: Home Medications: Medications to take at Discharge vitamin,calcium,qhjehmum-ugas-mopmw acid tablet 1 tab PO DAILY 08/29/18 Naproxen [Naprosyn] 500 mg PO BID PRN PRN #60 tab 03/07/19 Oxycodone HCl/Acetaminophen [Percocet 5/325] 1 - 2 tablet PO Q4H PRN PRN 3 Days #15 tablet 03/07/19 Following Prescrptions Were Given to Patient: Naproxen [Naprosyn] 500 mg PO BID PRN PRN #60 tab PRN Reason: Pain Transmission Status: Pending to [facility] Oxycodone HCl/Acetaminophen [Percocet 5/325] 1 - 2 tablet PO Q4H PRN PRN 3 Days #15 tablet PRN Reason: Pain Transmission Status: Sent to [facility] Primary Care Physician: Jose Maria Mcdonough MD [Primary Care Provider] - Medical Necessity - Tobacco Use Smoking Status: Former smoker Meaningful Use Info Meaningful Use Diagnoses (Choose all that apply): None applicable
[2019-03-07 09:15] VITALS: BP 108/66; PULSE 98; RESP 20; TEMP 37.3; O2SAT 96
[2019-03-07] MEDS: Naproxen 250 MG Tablet 500 MG PO (09:20)
[2019-03-07] MEDS: Prenatal Vits Tablet 1 TABLET PO (13:00)
[2019-03-07] MEDS: Senna/Docusate Sodium 1 Tablet PO (13:01)
[2019-03-07] MEDS: Ferrous Sulfate 325 MG Tablet PO (13:01)
== END 2019-03-07 13:25 | disposition home or self-care (01) | DRG 787 ==
PROVIDERS: Nurse Practitioner Women's Health; Admitting Provider Obstetrics & Gynecology; Family Provider Family Medicine; PCP Family Medicine; Visit Provider Obstetrics & Gynecology
DX: O48.0 Post-term pregnancy (principal); O72.1 Other immediate postpartum hemorrhage; O33.9 Maternal care for disproportion, unspecified; O61.9 Failed induction of labor, unspecified; O62.0 Primary inadequate contractions; O76 Abnormality in fetal heart rate and rhythm complicating labor and delivery; R03.0 Elevated blood-pressure reading, without diagnosis of hypertension; K21.9 Gastro-esophageal reflux disease without esophagitis; Z87.891 Personal history of nicotine dependence; Z3A.41 41 weeks gestation of pregnancy; Z37.0 Single live birth
CPT/HCPCS: 59025; 59050; 85025; 85027; 86850; 86900; 86901; 99218; J7120; A4216; G0378; J2405

== ENCOUNTER 2020-02-24 13:26 | Observation (INO) | payer OTHER, SELFPAY ==
[2019-06-03 13:06] VITALS: BMI 35.6
[2020-02-24] VITALS (9 sets, daily range): BP systolic 107–137; BP diastolic 67–93; PULSE 76–98; RESP 16–18; TEMP 36.4–36.9; O2SAT 97–99; BMI 28.5; BMI 27.5; BMI 27.6
[2020-02-24 13:51] LABS: Bedside Glucose 107 mg/dL (70-110)
--- NOTE | 2020-02-24 13:58 | ED.RN ---
NO OLD EKGS
--- NOTE | 2020-02-24 14:14 | RAD_ITS ---
STUDY: X-RAY CHEST REASON FOR EXAM: Female, 34 years old. WEAKNESS, DIZZINESS, EARLIER TODAY TECHNIQUE: Single AP portable view of the chest. COMPARISON: None. FINDINGS: EKG electrodes are seen. The lungs are clear and expanded. There is no demonstrated pleural abnormality. Normal size heart. Normal mediastinum and collin. Normal visualized pulmonary arteries. Normal visualized aortic arch and descending thoracic aorta. Normal visualized thoracic spine. Normal visualized ribs, clavicles, and shoulders. There is no demonstrated abnormality of the visualized soft tissue structures of the upper abdomen. RAD/Chest 1 View (Portable) IMPRESSION: Normal x-ray examination of the chest. Electronically Signed: Williams Myers, at 15:31 EDT , Service support ,
--- NOTE | 2020-02-24 14:15 | EKG12_ITS ---
Test Reason : DIZZINESS Blood Pressure : / mmHG Vent. Rate : 098 BPM Atrial Rate : 098 BPM P-R Int : 136 ms QRS Dur : 088 ms QT Int : 344 ms P-R-T Axes : 051 079 044 degrees QTc Int : 439 ms Normal sinus rhythm Normal ECG Confirmed by TONY CARSON, BARBI ([id number]), sound editor STEPHANIE IVERSON ([id number]) on 02/25/2020 8:25:22 AM Referred By: DEL ALMENDAREZ Confirmed By:BARBI JIMENEZ MD
--- NOTE | 2020-02-24 14:16 | CT_ITS ---
STUDY: CTA HEAD AND NECK WITH CONTRAST REASON FOR EXAM: Female, 34 years old. C/O LOSS OF VISION PERIPHERIALLY TO LEFT EYE, C/O NUMBNESS TO LEFT HAND, C/O DIZZINESS, HX OF MIGRAINES. -- NON CONTRAST BRAIN ALSO DONE WITH THIS EXAM RADIATION DOSAGE (If Supplied By Facility): CTDIvol = ( 26.74 ) mGy, DLP = ( 1491.75 ) mGycm TECHNIQUE: CT angiography was performed with a multi-detector CT scanner. Data acquisition was obtained from the skull base through the vertex following intravenous administration of IV 100mL Isovue-370. MIP images were reconstructed from the axial data set. Post-processing of the angiographic images was performed, with multiplanar reformation and 3D reconstruction. Individualized dose optimization techniques were used for this CT. COMPARISON: No relevant priors. FINDINGS: Normal bilateral petrous carotid arteries. Normal right cavernous carotid artery with a normal supraclinoid bifurcation. Normal left cavernous carotid artery with a normal supraclinoid bifurcation. Normal right A1 segments of the anterior cerebral artery. Normal left A1 segments of the anterior cerebral artery. Normal intact anterior communicating artery (ACOM). Normal bilateral A2 segments of the anterior cerebral arteries. Normal right M1 and M2 segments of the middle cerebral arteries, with a normal M1 bifurcation. Normal left M1 and M2 segments of the middle cerebral arteries, with a normal M1 bifurcation. Normal right posterior communicating artery (PCOM). Normal left posterior communicating artery (PCOM). Normal bilateral vertebral arteries. Normal basilar artery with a normal basilar bifurcation. The visualized bilateral superior cerebellar (SCA) arteries are normal. Normal bilateral P1, P2 and visualized P3 segments of the posterior cerebral arteries. There is no demonstrated aneurysm of the [place]. There is no demonstrated abnormality of the visualized brain. AORTIC ARCH: Normal visualized aortic arch. Normal origins of the brachiocephalic, left common carotid, and left subclavian arteries. RIGHT CAROTID ARTERIES: Normal right common carotid artery (CCA). Normal right common carotid bulb. Normal origin of the right internal carotid (ICA) artery without a hemodynamically significant stenosis. Normal visualized cervical portion of the right internal carotid artery. Normal origin of the right external carotid artery (ECA). LEFT CAROTID ARTERIES: Normal left common carotid artery (CCA). Normal left common carotid bulb. Normal origin of the left internal carotid (ICA) artery without a hemodynamically significant stenosis. Normal visualized cervical portion of the left internal carotid artery. Normal origin of the left external carotid artery (ECA). VERTEBRAL ARTERIES: Normal bilateral vertebral arteries. CT/CTA Head AND Neck W/ Contrast IMPRESSION: Normal CTA Head and neck with contrast. Electronically Signed: Oscar Tovar MD at 15:38 EDT Tel , Service support ,
--- NOTE | 2020-02-24 14:18 | ED.VIS.GEN ---
History of Present Illness Chief Complaint: Dizziness Informant: Patient Onset: Today Narrative: 34-year-old female with no significant past medical history presents with vision change. States that approximately 4 hours ago she had loss of her peripheral vision bilaterally. States that it lasted for approximately 1 hour. States that her vision then returned but shortly after she had another loss which lasted another 10 minutes. States that she had tingling in her left hand but the numbness in her left hand. All the symptoms have since resolved approximately 1 hour ago. She denies any headache, fever, chills, head injury, neck pain, chest pain, shortness of breath or urinary symptoms. Past Medical History - Allergies and Home Meds Allergies/Adverse Reactions: Allergies ondansetron [From Zofran] Allergy (Verified 06/03/19 13:05) Hives Past Medical History: None Surgical History: - Lives: Spouse/ Significant Other Smoking Status: Former smoker Alcohol: None Drugs: None Review of Systems General: Denies: Chills, Fever, Sweats Eyes: Reports: Visual changes - bilaterally. Denies: Diplopia ENT: Denies: Rhinorrhea, Sore throat Cardiovascular: Denies: Chest pain, Palpitations Respiratory: Denies: Dyspnea, Cough, Dyspnea on exertion Gastrointestinal: Denies: Abdominal pain, Nausea, Vomiting, Diarrhea, Melena, Hematochezia Genitourinary: Denies: Dysuria, Hematuria, Frequency Musculoskeletal: Denies: Back pain, Extremity Pain Skin: Denies: Rash, Wounds Neurological: Reports: Parasthesia, Numbness. Denies: Headache, Weakness Physical Exam Vital Signs/Narrative: Vital Signs Temp Pulse Resp BP Pulse Ox 02/24/20 13:27 97.6 F L 97 16 137/93 H 99 02/24/20 13:26 97.6 F L 98 18 137/93 H 99 Inital Vital Signs reviewed: Yes General: Well nourished, Well developed, No Acute Distress Head: Normocephalic, Atraumatic Eyes: Perrl, EOMI ENT: Moist mucous membranes, No rhinorrhea Neck: Supple, Nontender Cardiovascular: Regular rate, Regular rhythm, No murmurs Respiratory: No distress, CTA bilaterally, Chest nontender Abdomen: Soft, Nontender, Nondistended, Normal bowel sounds Back: Nontender, Normal Inspection Extremities: Nontender, No edema Skin: Normal color, No rash Neurological: Alert, Oriented x3, Cranial nerves II-XII grossly intact, Normal Strength, Normal Sensation Psychological: Normal affect, Normal Mood Diagnostic/Tx/Re-eval Chest X-Ray - ED: 1 View, Normal Clinical Impression(s) from Imaging Studies Chest X-Ray 02/24/20 14:14 IMPRESSION: Normal x-ray examination of the chest. Electronically Signed: Williams Lucia, at 15:31 EDT , Service support , Head/Neck CTA 02/24/20 14:16 IMPRESSION: Normal CTA Head and neck with contrast. Electronically Signed: Oscar Tovar MD at 15:38 EDT Tel , Service support , Laboratory Data 02/24/20 02/24/20 02/24/20 13:43 13:48 13:48 WBC 8.7 RBC 4.55 Hgb 13.5 Hct 40.9 MCV 89.9 MCH 29.7 MCHC 33.0 RDW Std Deviation 38.0 RDW Coeff of Suad 11.6 Plt Count 205 MPV 10.9 Immature Gran % (Auto) 0.300 Neut % (Auto) 72.0 H Lymph % (Auto) 17.9 L [place] % (Auto) 8.0 Eos % (Auto) 1.5 Baso % (Auto) 0.3 Absolute Neuts (auto) 6.3 Absolute Lymphs (auto) 1.56 Nucleated RBC % 0 Sodium 142 Potassium 3.6 Chloride 110 H Carbon Dioxide 26.0 Anion Gap 6 BUN 11 Creatinine 1.27 H Estim Creat Clear Calc 61.27 Est GFR (MDRD) Af Amer 62 Est GFR (MDRD) Non-Af 51 L BUN/Creatinine Ratio 8.7 L Glucose 91 Calcium 8.8 Total Bilirubin 0.40 AST 16 ALT 25 Alkaline Phosphatase 85 Total Protein 7.6 Albumin 3.8 Globulin 3.8 Albumin/Globulin Ratio 1.0 Urine Color Urine Clarity Urine pH Ur Specific [place] Urine Protein Urine Glucose (UA) Urine Ketones Urine Occult Blood Urine Nitrite Urine Bilirubin Urine Urobilinogen Ur Leukocyte Esterase Urine RBC Urine WBC Ur Squamous Epith Cells Urine Bacteria Urine Mucus Urine Test POC Glucose 107 02/24/20 14:00 WBC RBC Hgb Hct MCV MCH MCHC RDW Std Deviation RDW Coeff of Su[place] Plt Count MPV Immature Gran % (Auto) Neut % (Auto) Lymph % (Auto) [place] % (Auto) Eos % (Auto) Baso % (Auto) Absolute Neuts (auto) Absolute Lymphs (auto) Nucleated RBC % Sodium Potassium Chloride Carbon Dioxide Anion Gap BUN Creatinine Estim Creat Clear Calc Est GFR (MDRD) Af Amer Est GFR (MDRD) Non-Af BUN/Creatinine Ratio Glucose Calcium Total Bilirubin AST ALT Alkaline Phosphatase Total Protein Albumin Globulin Albumin/Globulin Ratio Urine Color Straw Urine Clarity Clear Urine pH 7.0 Ur Specific [place] 1.005 Urine Protein Negative Urine Glucose (UA) Normal Urine Ketones Negative Urine Occult Blood Negative Urine Nitrite Negative Urine Bilirubin Negative Urine Urobilinogen Normal Ur Leukocyte Esterase Negative Urine RBC 0 SEEN Urine WBC 0 SEEN Ur Squamous Epith Cells 0 SEEN Urine Bacteria 0 SEEN Urine Mucus 0 SEEN Urine Test Negative POC Glucose - Medical Decision Making Appears well and nontoxic. Vital signs within normal limits. No focal neurologic deficit. CTA head and neck negative. Lab work within normal limits. Given the patient's symptoms she will be admitted for MRI and further monitoring. Patient agreeable this plan. Bedside swallow performed and negative. NIH currently 0. Patient was given aspirin. Admitted in stable condition. Impression: 1. Bilateral hemianopsia - resolved 2. Left hand numbness - resolved ED Disposition - Plan for ED Patient: Disposition: [facility]
[2020-02-24 14:23] LABS: Bacteria 0 SEEN /hpf (None Seen); Mucous, Urine 0 SEEN /hpf (<or=2+); Red Blood Cells-Urine 0 SEEN /hpf (0-5); Squamous Epithelial Cells - UA 0 SEEN /hpf (5-10); White Blood Cells 0 SEEN /hpf (0-5)
[2020-02-24 14:24] LABS: Color, Urine Straw (Yellow); Glucose, Dipstick Normal (Normal); Ketone-Dipstick Negative (Negative); Leukocyte Esterase-Dipstick Negative /ul (Negative); Nitrite-Dipstick Negative (Negative); Occult Blood-Urine Negative /ul (Negative); Protein-Dipstick Negative (Negative); Specific Gravity, Urine 1.005 (1.002-1.030); Urine Bilirubin Dipstick Negative (Negative); Urine Clarity Clear (Clear); Urine Urobilinogen Normal (Normal)
[2020-02-24 14:24] LABS: Absolute Lymphocyte Count 1.56 X10^3/uL (0.83-4.51); Absolute Neutrophil Count 6.3 X10^3/uL (2.0-7.7); Basophil# 0.03 X10^3/uL; Basophil% 0.3 % (0-1); Eosinophil# 0.13 X10^3/uL; Eosinophils% 1.5 % (0-5); Hematocrit 40.9 % (37-47); Hemoglobin 13.5 g/dL (12.0-15.0); Lymphocyte # 1.56 X10^3/ul (4.0); Lymphocyte % 17.9 % (19-41); Mean Corpuscular Hgb 29.7 pg (27.0-32.0); Mean Corpuscular Volume 89.9 fL (81-99); Mean Platelet Vol. 10.9 fl (6.2-12.0); NRBC Flagged by Analyzer 0 % (0-5); Neutrophil # 6.26 X10^3/uL (2.7-7.7); Platelet Count 205 K/mm3 (150-450); RBC Distribution Width CV 11.6 % (11.6-14.6); Red Blood Count 4.55 M/mm3 (4.2-5.4); White Blood Count 8.7 K/mm3 (4.4-11.0)
[2020-02-24 14:33] LABS: Internal QC Validated? YES +Cl - CLEAR BKGD; Pregnancy, Urine Negative Negative
[2020-02-24 14:39] LABS: AST(SGOT) 16 U/L (15-37); Alanine Aminotransfer ALT/SGPT 25 U/L (13-56); Albumin, Serum 3.8 g/dL (3.2-5.0); Alkaline Phosphatase 85 U/L (45-117); Anion Gap 6 (5-15); BUN 11 mg/dL (7-18); BUN/Creat Ratio 8.7 RATIO (10-20); Calcium,Total 8.8 mg/dL (8.5-10.1); Chloride 110 mmol/L (98-107); Creatinine, Serum 1.27 mg/dL (0.55-1.02); EST Glomerular Filtration Rate 51 mL/min (>60); Est Glom Filt Rate - Afr Amer 62 mL/min (>60); Estimated Creatinine Clearance 61.27 ml/min; Globulin 3.8 g/dL (2.2-4.2); Glucose 91 mg/dL (74-106); Potassium 3.6 mmol/L (3.5-5.1); Protein, Total 7.6 g/dL (6.4-8.2); Sodium Level 142 mmol/L (136-145)
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
[2020-02-24] MEDS: Aspirin 81 MG TAB.CHEW 324 MG PO (16:33)
[2020-02-24 17:51] LABS: Thyroid Stim Hormone (TSH) 2.22 uIU/mL (0.358-3.74)
[2020-02-24 18:16] LABS: Vitamin B12 529 pg/mL (211-911)
[2020-02-24] MEDS: 0.9% Saline Lock 10 ML Syringe IV (18:29)
[2020-02-24] MEDS: 0.9% Normal Saline 1,000 ML 125 ML IV (18:29)
[2020-02-25] VITALS (10 sets, daily range): BP systolic 95–123; BP diastolic 46–87; PULSE 66–103; RESP 16–18; TEMP 36.7–36.8; O2SAT 98–100
[2020-02-25] MEDS: 0.9% Normal Saline 1,000 ML 125 ML IV (02:30)
--- NOTE | 2020-02-25 05:55 | MRI_ITS ---
STUDY: MRI BRAIN WITH AND WITHOUT CONTRAST REASON FOR EXAM: Female, 34 years old. CVA, vision loss, left hand tingling and amp; numbness, bilat peripheral vision loss, chronic migraines. Symptoms resolved now TECHNIQUE: Standardized multiplanar fat and water weighted pulse sequences were obtained. IV Yes YES was administered for the contrast portion of the examination. COMPARISON: CT 02/24/2020 FINDINGS: Normal size of the ventricles and extra-axial spaces for the patient''s age. Normal white matter tracts of the supratentorial brain. There is no evidence for recent intracranial ischemia or other cause of cytotoxic edema on diffusion weighted imaging (DWI). Normal T2* images of the brain without demonstrated susceptibility artifact. There is no demonstrated hemosiderin stain. Normal bilateral basal ganglia. Normal thalami. There is no extra-axial fluid accumulation. Normal flow voids within the major intracranial circulation suggesting patency by spin echo criteria. Normal venous enhancement. There is no enhancing intra-axial or extra-axial abnormality. Normal sella turcica, pituitary gland, infundibular stalk, optic chiasm and hypothalamus. Normal tectal plate and pineal gland. Normal midbrain, [place] and medulla. Normal cerebellum. Normal basal cisterns. Normal bilateral temporal bones. Normal bilateral internal auditory canals. No demonstrated orbital abnormality, within the constraints of a routine brain study. Normal visualized paranasal sinuses. Normal calvarium and skull base. Normal visualized soft tissue structures. Normal visualized upper cervical spine. MRI/Brain W/WO Contrast IMPRESSION: Normal unenhanced and enhanced MRI of the brain. Electronically Signed: Oscar Tovar MD at 9:58 EDT Tel , Service support ,
[2020-02-25 07:20] LABS: Anion Gap 7 (5-15); BUN 7 mg/dL (7-18); BUN/Creat Ratio 9.4 RATIO (10-20); Calcium,Total 7.8 mg/dL (8.5-10.1); Chloride 112 mmol/L (98-107); Cholesterol 152 mg/dL (200); Creatinine, Serum 0.74 mg/dL (0.55-1.02); EST Glomerular Filtration Rate 95 mL/min (>60); Est Glom Filt Rate - Afr Amer 115 mL/min (>60); Estimated Creatinine Clearance 105.15 ml/min; Glucose 86 mg/dL (74-106); High Density Lipoprotein 47 mg/dL; Potassium 3.6 mmol/L (3.5-5.1); Sodium Level 141 mmol/L (136-145); Triglycerides 70 mg/dL; Very Low Density Lipoprotein 14 mg/dL (5-40)
[2020-02-25] MEDS: LORazepam 2 MG/ML Syringe 1 MG IV (07:59)
[2020-02-25] MEDS: 0.9% Saline Lock 10 ML Syringe IV (07:59)
--- NOTE | 2020-02-25 08:57 | NURSING ---
pt tolerated mri well, without distress, in wheelchair, waiting for transport. awake and alert.
[2020-02-25] MEDS: Aspirin 81 MG TAB.CHEW PO (09:26)
--- NOTE | 2020-02-25 09:33 | NURSING ---
Pt returned from MRI at 0910, [facility] and [facility] late d/t pt off floor.
--- NOTE | 2020-02-25 11:22 | DCINST_ITS ---
- Discharge Diagnoses Current Active Problems: Current Active and Chronic Problems (Last Reviewed 06/03/19 @ 13:05 by [place]) Neurological deficit, transient (Acute) Migraine (Chronic) You will use the following diet at home:: No restrictions Your food should be the consistency of: Regular Your liquids should be the consistency of: Regular/Thin Discharge Activity: Return to Normal Activity Allergies/Adverse Reactions: Allergies ondansetron [From Zofran] Allergy (Verified 06/03/19 13:05) Hives Medications to take at Discharge NK 02/24/20 Primary Care Physician: Jose Maria Mcdonough MD [Primary Care Provider] - Please follow up with your Primary Care Physician in: 1-2 weeks Test Results: Test results from this visit will be discussed in further detail at your follow- up appointment, if applicable. Please Follow Up With: Hossein Bahena MD When: 2 weeks Proposed Discharge Date: 02/25/20
--- NOTE | 2020-02-25 14:34 | PCM.DC.SUM ---
<Paulino Barahona - Last Filed: 02/25/20 14:34> Discharge Date and Diagnosis - Problem List Patient Problems: Active and Suspected Problems (Last Reviewed 06/03/19 @ 13:05 by [place]) Neurological deficit, transient (Acute) Date of Admission: 02/24/20 Date of Discharge: 02/25/20 - Primary Discharge Diagnosis Acute Problems: Active Problems (Last Reviewed 06/03/19 @ 13:05 by [place]) Neurological deficit, transient (Acute) - complex migraine Hx migraines - Secondary Discharge Diagnosis Chronic Problems: Chronic Problems (Last Reviewed 06/03/19 @ 13:05 by [place]) Migraine (Chronic) Hospital Course and Treatment Imaging Results: IMAGIN02/25/20 05:55 Brain W/WO Contrast [MRI] AM (NON MEDS) MRI/Brain W/WO Contrast IMPRESSION: Normal unenhanced and enhanced MRI of the brain. CT/CTA Head AND Neck W/ Contrast IMPRESSION: Normal CTA Head and neck with contrast. RAD/Chest 1 View (Portable) IMPRESSION: Normal x-ray examination of the chest. Procedures: None Summary of Care Provided: Hospital Course: The patient is a 34 year old F with pmhx of migraines who presented to the ER with complaints of vision changes and paraesthesias. She was sitting at a computer for work and noticed loss of her peripheral vision. Duration was approximately 1.5 hours before spontaneously resolving. She later had a 10 minute episode of numbness and tingling of the left hand. She had a mild headache however stated this was nothing like any prior migraines. She came to the ER and had negative CTA head and neck, otherwise unremarkable workup. She was admitted to the PCU on tele. No events on tele. She had an MRI brain with and without contrast the following day which was negative. She had no symptoms the following day. She was discharged home in stable condition. She was advised to follow up with neurology in 2 weeks and with her pcp in 1-2 weeks. This patient was seen by Paulino Barahona PA-C under the supervision of Dr. Olguin. [] Patient Problems: Active and Suspected Problems (Last Reviewed 06/03/19 @ 13:05 by [place]) Neurological deficit, transient (Acute) - Physical Exam Vitals/I&O's: Vital Signs Temp Pulse Resp BP Pulse Ox 98.3 F 89 16 116/62 99 02/25/20 11:23 02/25/20 11:23 02/25/20 11:23 02/25/20 11:23 02/25/20 11:23 Oxygen Delivery Method Room Air Weight: 175 lb 14.862 oz Body Mass Index (BMI) 27.5 Intake and Output for Last 24 Hours 02/23/20 02/24/20 02/25/20 23:59 23:59 23:59 Intake Total 940 / 940 2442.50 / 2442.50 Balance 940 / 940 2442.50 / 2442.50 General: Alert, Oriented x3, Cooperative HEENT: Atraumatic, PERRLA, EOMI, Normocephalic Neck: Supple, No JVD, Negative Carotid Bruits Lungs: Clear to auscultation, Normal air movement Cardiovascular: Regular rate, No murmurs Abdomen: Bowel Sounds Present, Soft, Non Tender Extremities: No edema, Capillary Refill Less than 3 Seconds Skin: No rashes, No breakdown Musculoskeletal: No Tenderness to Palpation of Joints or Extremities Neurological: Cranial nerves II-XII grossly intact Psych/Mental Status: Normal Affect, Appropriate Laboratory Results 02/24/20 13:48: Sodium 142, Potassium 3.6, Chloride 110 H, Carbon Dioxide 26.0, Anion Gap 6, BUN 11, Creatinine 1.27 H, Estim Creat Clear Calc 61.27, Est GFR (MDRD) Af Amer 62, Est GFR (MDRD) Non-Af 51 L, BUN/Creatinine Ratio 8.7 L, Glucose 91, Calcium 8.8, Total Bilirubin 0.40, AST 16, ALT 25, Alkaline Phosphatase 85, Total Protein 7.6, Albumin 3.8, Globulin 3.8, Albumin/Globulin Ratio 1.0 02/24/20 13:48: Vitamin B12 529 02/24/20 13:48: TSH 2.22 02/24/20 13:48: Magnesium 2.0 02/24/20 14:00: Urine Test Negative 02/25/20 06:00: Sodium 141, Potassium 3.6, Chloride 112 H, Carbon Dioxide 22.0, Anion Gap 7, BUN 7, Creatinine 0.74, Estim Creat Clear Calc 105.15, Est GFR (MDRD) Af Amer 115, Est GFR (MDRD) Non-Af 95, BUN/Creatinine Ratio 9.4 L, Glucose 86, Calcium 7.8 L, Triglycerides 70, Cholesterol 152, LDL Cholesterol 91, VLDL Cholesterol 14, HDL Cholesterol 47 Discharge Diet: No Restrictions Discharge Activity: Return to Normal Activity Home Medications: Medications to take at Discharge NK 02/24/20 Primary Care Physician: Jose Maria Mcdonough MD [Primary Care Provider] - Please follow up with your Primary Care Physician in: 1-2 weeks Please Follow Up With: Hossein Bahena MD When: 2 weeks Medical Necessity - Tobacco Use Smoking Status: Never smoker Meaningful Use Info Meaningful Use Diagnoses (Choose all that apply): None applicable <Cayetano Olguin - Last Filed: 02/25/20 15:23> Discharge Date and Diagnosis - Primary Discharge Diagnosis Acute Problems: Active Problems (Last Reviewed 06/03/19 @ 13:05 by [place]) Neurological deficit, transient (Acute) - Secondary Discharge Diagnosis Chronic Problems: Chronic Problems (Last Reviewed 06/03/19 @ 13:05 by [place]) Migraine (Chronic) Hospital Course and Treatment Summary of Care Provided: This patient was seen in conjunction with Paulino Barahona PA-C . I have independently interviewed and examined the patient and reviewed pertinent historical, laboratory, and other data. Please refer to Paulino Barahona PA-C note for details of this patient's presentation, findings, and recommendations. I have reviewed Paulino Barahona PA-C note and concur with documented findings. In brief, patient 34-year-old lady admitted vision changes and paraesthesias Physical Examination: GENERAL: No distress HEENT: Atraumatic; EYES; Anicteric, Normal Conjunctiva NECK; supple, normal thyroid, RESPIRATORY: Diminished to auscultation PSYCH; Flat affect Hospital course ; as documented above - Physical Exam Vitals/I&O's: Vital Signs Temp Pulse Resp BP Pulse Ox 98.3 F 89 16 116/62 99 02/25/20 11:23 02/25/20 11:23 02/25/20 11:23 02/25/20 11:23 02/25/20 11:23 Oxygen Delivery Method Room Air Weight: 79.8 kg Body Mass Index (BMI) 27.5 Intake and Output for Last 24 Hours 02/23/20 02/24/20 02/25/20 23:59 23:59 23:59 Intake Total 940 / 940 2442.50 / 2442.50 Balance 940 / 940 2442.50 / 2442.50 Laboratory Results 02/24/20 13:48: Vitamin B12 529 02/24/20 13:48: TSH 2.22 02/24/20 13:48: Magnesium 2.0 02/25/20 06:00: Sodium 141, Potassium 3.6, Chloride 112 H, Carbon Dioxide 22.0, Anion Gap 7, BUN 7, Creatinine 0.74, Estim Creat Clear Calc 105.15, Est GFR (MDRD) Af Amer 115, Est GFR (MDRD) Non-Af 95, BUN/Creatinine Ratio 9.4 L, Glucose 86, Calcium 7.8 L, Triglycerides 70, Cholesterol 152, LDL Cholesterol 91, VLDL Cholesterol 14, HDL Cholesterol 47 OBSV E&M: 23927 Observation care discharge
--- NOTE | 2020-02-25 14:56 | CASEMGMT ---
SW did not complete a PhQ 9 with patient as per PA she did not have a Stroke or TIA. Alejandra PATTERSON MSW
== END 2020-02-25 11:23 | disposition home or self-care (01) ==
LOC: ED 14:08 → PCU 16:35
PROVIDERS: Family Medicine; Admitting Provider Physician Assistant; Emergency Provider Emergency Medicine; PCP Family Medicine; Visit Provider Internal Medicine
DX: R29.818 Other symptoms and signs involving the nervous system (principal); G43.109 Migraine with aura, not intractable, without status migrainosus; Z23 Encounter for immunization; Z87.891 Personal history of nicotine dependence; N28.9 Disorder of kidney and ureter, unspecified; R20.2 Paresthesia of skin; R20.0 Anesthesia of skin
CPT/HCPCS: 36415; 70496; 70498; 70553; 71045; 80048; 80053; 80061; 81001; 81025; 82607; 82962; 83735; 84443; 85025; 93005; 96361; 96372; 96374; 99218; 99285; A9575; J7030; J7040; Q9967; 90686; A4216; G0378

== ENCOUNTER → 2020-06-03 07:25 | Outpatient (CLI) | payer OTHER, SELFPAY ==
[2020-02-24 21:54] VITALS: BMI 27.5
[2020-06-03 08:14] LABS: hCG Titer Quant., Serum 134 mIU/mL (1-3)
== END ==
PROVIDERS: PCP Family Medicine; Referring Provider Obstetrics & Gynecology Reproductive Endocrinology; Visit Provider Obstetrics & Gynecology Reproductive Endocrinology
DX: Z32.00 Encounter for pregnancy test, result unknown (principal)
CPT/HCPCS: 36415; 84702

== ENCOUNTER → 2020-06-05 07:15 | Outpatient (CLI) | payer OTHER, SELFPAY ==
[2020-02-24 21:54] VITALS: BMI 27.5
[2020-06-05 08:52] LABS: hCG Titer Quant., Serum 380 mIU/mL (1-3)
== END ==
PROVIDERS: PCP Family Medicine; Referring Provider Obstetrics & Gynecology Reproductive Endocrinology; Visit Provider Obstetrics & Gynecology Reproductive Endocrinology
DX: Z32.01 Encounter for pregnancy test, result positive (principal)
CPT/HCPCS: 36415; 84702

== ENCOUNTER → 2020-11-09 07:20 | Outpatient (CLI) | payer OTHER, SELFPAY ==
[2020-08-10 11:12] VITALS: BMI 27.5
[2020-11-09 08:10] LABS: hCG Titer Quant., Serum 429 mIU/mL (1-3)
== END ==
PROVIDERS: PCP Family Medicine; Referring Provider Obstetrics & Gynecology Reproductive Endocrinology; Visit Provider Obstetrics & Gynecology Reproductive Endocrinology
DX: Z32.00 Encounter for pregnancy test, result unknown (principal)
CPT/HCPCS: 36415; 84702

== ENCOUNTER → 2020-11-11 07:09 | Outpatient (CLI) | payer OTHER, SELFPAY ==
[2020-08-10 11:12] VITALS: BMI 27.5
[2020-11-11 08:44] LABS: hCG Titer Quant., Serum 1187 mIU/mL (1-3)
== END ==
PROVIDERS: PCP Family Medicine; Referring Provider Obstetrics & Gynecology Reproductive Endocrinology; Visit Provider Obstetrics & Gynecology Reproductive Endocrinology
DX: Z32.01 Encounter for pregnancy test, result positive (principal)
CPT/HCPCS: 36415; 84702

== ENCOUNTER → 2021-02-16 06:53 | Outpatient (CLI) | payer OTHER, SELFPAY ==
[2021-02-16 07:42] LABS: hCG Titer Quant., Serum < 1 mIU/mL (1-3)
[2021-02-16 08:22] LABS: Progesterone Level 14.99 ng/mL (See Comment)
== END ==
PROVIDERS: PCP Family Medicine; Visit Provider Obstetrics & Gynecology Reproductive Endocrinology
DX: N91.0 Primary amenorrhea (principal)
CPT/HCPCS: 36415; 84144; 84702

== ENCOUNTER → 2021-04-26 08:53 | Outpatient (CLI) | payer OTHER, SELFPAY ==
--- NOTE | 2021-04-26 08:56 | BI_ITS ---
MAMMOGRAPHY - BILATERAL DIAGNOSTIC REASON FOR EXAM: Female, 35 years old. Left periareolar breast lump. PERTINENT HISTORY: Non-contributory. TECHNIQUE: Digital bilateral breast roberth (3D mammographic acquisition) in the CC and MLO projections. 2-D mediolateral oblique (MLO) and craniocaudad (CC) views of both breasts were obtained. CAD: Full Field Digital Mammography with Computer Added Detection was performed. COMPARISON: None. Baseline examination. FINDINGS: Breast Composition: The breasts are extremely dense, which lowers the sensitivity of mammography. There are no dominant masses or suspicious calcifications. No other significant abnormalities are identified. BI/DIAG MAMM W/CAD, BILAT IMPRESSION: Negative diagnostic mammogram. With the patient''s history of a left periareolar breast lump, correlation with ultrasound is recommended. ASSESSMENT CATEGORY: BIRADS Category 0: Incomplete. Need additional imaging evaluation. A letter regarding these results will be sent to the patient by the facility within 30 days. Approximately 10% of breast cancers are not detected by mammography. A normal mammogram should not delay biopsy of a clinically suspicious abnormality. Electronically Signed: Williams Myers MD at 10:12 EST , Service support ,
--- NOTE | 2021-04-26 08:56 | US_ITS ---
STUDY: ULTRASOUND BREAST - LEFT REASON FOR EXAM: Female, 35 years old. Palpable lump left breast. TECHNIQUE: Axial and longitudinal images of the LEFT breast were performed with a high resolution ultrasound transducer. # OF IMAGES: 21 COMPARISON: Comparison is made with prior mammogram done earlier in the day. FINDINGS: LEFT Breast: The palpable abnormality corresponds to a 4 mm x 3 mm x 2 mm cyst at the 3 o''clock position of the breast about 1 cm from nipple. This is just deep to the skin line. US/Breast Limited Unilateral IMPRESSION: The palpable abnormality corresponds to a superficial 4 mm x 3 mm x 2 mm cyst ASSESSMENT CATEGORY: BIRADS Category 2: Benign. A letter regarding these results will be sent to the patient by the facility within 30 days. Electronically Signed: Williams Myers MD at 10:20 EST , Service support ,
== END ==
PROVIDERS: PCP Family Medicine; Visit Provider Nurse Practitioner Women's Health
DX: N60.02 Solitary cyst of left breast (principal)
CPT/HCPCS: 76642; 77062; 77066; G0279

== ENCOUNTER 2021-05-19 06:34 | Outpatient (CLI) | payer OTHER, SELFPAY ==
[2021-05-19 07:16] LABS: hCG Titer Quant., Serum < 1 mIU/mL (1-3)
== END 2021-05-19 23:59 | disposition short-term general hospital (02) ==
PROVIDERS: PCP Family Medicine; Referring Provider Obstetrics & Gynecology Reproductive Endocrinology; Visit Provider Obstetrics & Gynecology Reproductive Endocrinology
DX: Z32.00 Encounter for pregnancy test, result unknown (principal)
CPT/HCPCS: 36415; 84702

== ENCOUNTER → 2021-12-27 | Outpatient (CLI) | payer OTHER, SELFPAY ==
[2021-12-31 17:44] LABS: HPV APTIMA, High Risk Negative (Negative)
== END | disposition home or self-care (01) ==
LOC: LABSPEC 11:49
PROVIDERS: PCP Family Medicine; Referring Provider Nurse Practitioner Women's Health; Visit Provider Nurse Practitioner Women's Health
DX: Z12.4 Encounter for screening for malignant neoplasm of cervix (principal)
CPT/HCPCS: 87624; 88175; G0145

== ENCOUNTER → 2022-01-31 | Outpatient (CLI) | payer OTHER, SELFPAY ==
--- NOTE | 2022-01-31 12:59 | US_ITS ---
STUDY: FIRST TRIMESTER OBSTETRICAL ULTRASOUND REASON FOR EXAM: Female, 36 years old dating/ wellbeing LMP: 12/21/2021. TECHNIQUE: Transvaginal TECHNICAL QUALITY: Adequate. PRIOR ULTRASOUND: None. FINDINGS: There is no demonstrated intrauterine gestational sac. There is no demonstrated yolk sac. The placenta is non-visualized. There is no demonstrated embryo ( pole). The estimated gestation age (EGA) by LMP is 5 weeks, 6 days. The estimated date of delivery (FATOU) by LMP is 09/27/2022. The uterus measures 8.7 cm x 7.1 cm x 4.4 cm. The endometrium measures 6.9 mm. There is no demonstrated uterine fibroid. The cervix is closed. The right ovary measures 3 cm x 1.7 cm x 2.4 cm. There is no right ovarian cyst. There is no visualized right adnexal mass or complex lesion. The left ovary measures 3.7 cm x 2.4 cm x 2.5 cm. There is no left ovarian cyst. There is no visualized left adnexal mass or complex lesion. There is no fluid in the cul de sac. US/Transvaginal w/Preg US IMPRESSION: No intrauterine gestation is seen. Electronically Signed: Williams Myers MD at 14:05 EDT ,
[2022-01-31 14:09] LABS: hCG Titer Quant., Serum 1323 mIU/mL (1-3)
== END | disposition home or self-care (01) ==
PROVIDERS: PCP Family Medicine; Referring Provider Obstetrics & Gynecology; Visit Provider Obstetrics & Gynecology
DX: O99.891 Other specified diseases and conditions complicating pregnancy (principal); N97.0 Female infertility associated with anovulation; Z3A.01 Less than 8 weeks gestation of pregnancy
CPT/HCPCS: 36415; 76817; 84702

== ENCOUNTER → 2022-02-02 | Outpatient (CLI) | payer OTHER, SELFPAY ==
[2022-02-02 13:34] LABS: hCG Titer Quant., Serum 1333 mIU/mL (1-3)
== END | disposition home or self-care (01) ==
LOC: LAB 11:54
PROVIDERS: PCP Family Medicine; Visit Provider Obstetrics & Gynecology
DX: N92.0 Excessive and frequent menstruation with regular cycle (principal)
CPT/HCPCS: 36415; 84702

== ENCOUNTER → 2022-02-07 | Outpatient (CLI) | payer OTHER, SELFPAY ==
--- NOTE | 2022-02-07 08:49 | US_ITS ---
STUDY: FIRST TRIMESTER OBSTETRICAL ULTRASOUND REASON FOR EXAM: Female, 36 years old size and dates LMP: 12/21/2021 TECHNIQUE: Transabdominal and Transvaginal TECHNICAL QUALITY: Adequate. PRIOR ULTRASOUND: None. FINDINGS: There is no demonstrated intrauterine gestational sac. The uterus measures 9.2 x 7.1 x 4.2 cm. There is no demonstrated uterine fibroid. The cervix is closed. Endometrium measures 5.6 mm. The right ovary measures 3.2 x 2.0 x 2.1 cm. There is no right ovarian cyst. There is no visualized right adnexal mass or complex lesion. The left ovary measures 3.6 x 2.6 x 2.1 cm. There is no left ovarian cyst. There is no visualized left adnexal mass or complex lesion. There is minimal fluid in the cul de sac. US/Transvaginal w/Preg US IMPRESSION: No sonographic evidence of intra or extrauterine gestation Sonographically normal uterus and ovaries. Minimal free fluid in the cul-de-sac is likely physiologic Electronically Signed: Trevor Alejandro MD at 11:31 EDT ,
[2022-02-07 10:39] LABS: hCG Titer Quant., Serum 975 mIU/mL (1-3)
== END | disposition home or self-care (01) ==
PROVIDERS: Nurse Practitioner Women's Health; PCP Family Medicine; Referring Provider Obstetrics & Gynecology; Visit Provider Obstetrics & Gynecology
DX: O20.0 Threatened abortion (principal); Z3A.00 Weeks of gestation of pregnancy not specified
CPT/HCPCS: 36415; 76817; 84702

== ENCOUNTER → 2022-02-10 | Outpatient (CLI) | payer OTHER, SELFPAY ==
[2022-02-13 15:07] LABS: Dilute Prothrombin Time (dPT) 37.3 sec (0.0-47.6); Dilute Russell Viper Venom 36.9 sec (0.0-47.0); PTT-LA 29.2 sec (0.0-51.9); Thrombin Time 17.7 sec (0.0-23.0); dPT Confirm Ratio 1.19 Ratio (0.00-1.34)
[2022-02-13 15:30] LABS: Anti-Cardiolipin Ab, IgA, Qn < 9 APL U/mL (0-11); Anti-Cardiolipin Ab, IgG, Qn < 9 GPL U/mL (0-14); Anti-Cardiolipin Ab, IgM, Qn 9 MPL U/mL (0-12); Beta-2-Glycoprotein I IgA <9 (0-25); Beta-2-Glycoprotein I IgG <9 (0-20); Beta-2-Glycoprotein I IgM <9 (0-32); Interpretation Comment: (.)
== END | disposition home or self-care (01) ==
LOC: PAVLAB 11:23
PROVIDERS: PCP Family Medicine; Referring Provider Obstetrics & Gynecology; Visit Provider Obstetrics & Gynecology
DX: N96 Recurrent pregnancy loss (principal)
CPT/HCPCS: 36415; 86146; 86147

== ENCOUNTER → 2022-02-11 | Outpatient (CLI) | payer OTHER, SELFPAY ==
[2022-02-11 14:47] LABS: hCG Titer Quant., Serum 810 mIU/mL (1-3)
== END | disposition home or self-care (01) ==
LOC: LAB 13:36
PROVIDERS: PCP Family Medicine; Referring Provider Obstetrics & Gynecology; Visit Provider Obstetrics & Gynecology
DX: O03.9 Complete or unspecified spontaneous abortion without complication (principal)
CPT/HCPCS: 36415; 84702

== ENCOUNTER → 2022-02-14 | Outpatient (CLI) | payer OTHER, SELFPAY ==
[2022-02-14 13:46] LABS: hCG Titer Quant., Serum 627 mIU/mL (1-3)
== END | disposition home or self-care (01) ==
LOC: LAB 12:22
PROVIDERS: PCP Family Medicine; Visit Provider Obstetrics & Gynecology
DX: O03.9 Complete or unspecified spontaneous abortion without complication (principal)
CPT/HCPCS: 36415; 84702

== ENCOUNTER → 2022-02-21 | Outpatient (CLI) | payer OTHER, SELFPAY ==
[2022-02-21 15:24] LABS: hCG Titer Quant., Serum 535 mIU/mL (1-3)
== END | disposition home or self-care (01) ==
LOC: LAB 13:53
PROVIDERS: PCP Family Medicine; Visit Provider Obstetrics & Gynecology
DX: O03.9 Complete or unspecified spontaneous abortion without complication (principal)
CPT/HCPCS: 36415; 84702

== ENCOUNTER 2022-02-23 06:48 | Day surgery (SDC) | payer OTHER, SELFPAY ==
[2022-02-23] VITALS (11 sets, daily range): BP systolic 93–129; BP diastolic 56–79; PULSE 77–108; RESP 14–18; TEMP 36.4–37.3; O2SAT 97–100; BMI 23.3
--- NOTE | 2022-02-23 07:10 | US_ITS ---
STUDY: FIRST TRIMESTER OBSTETRICAL ULTRASOUND REASON FOR EXAM: Female, 36 years old severe left pelvic pain, possible ectopic. LMP: 12/21/2021 TECHNIQUE: Transvaginal TECHNICAL QUALITY: Adequate. PRIOR ULTRASOUND: 02/07/2022 FINDINGS: There is no demonstrated intrauterine gestational sac. The uterus measures 9.1 x 6.2 x 4.3 cm. There is no demonstrated uterine fibroid. The cervix is closed. Endometrium measures 1.1 cm. The right ovary measures 5.2 x 5.2 x 4.9 cm. There is a simple 3.6 x 4.4 x 4.1 cm cyst. The left ovary measures 3.9 x 2.1 x 2.1 cm.. There is a concerning complex heterogeneous mass adjacent to the left ovary measuring 3.3 x 3.7 x 3.5 cm concerning for ectopic . There is associated hyperemia and moderate free fluid. Patient has positive hCG. US/Transvaginal w/Preg US IMPRESSION: No intrauterine gestational sac. Concerning complex soft tissue mass adjacent to the left ovary measuring 3.3 x 3.7 x 3.5 cm with hyperemia and associated free fluid. Findings are suspicious for ectopic , CHAIN SAW DRIVER consultation recommended Simple right ovarian cyst, no specific follow-up needed N.B. : The above Results were Read Back by Trevor Alejandro MD to Jensen Angel MD, and understanding confirmed on 02/23/2022 08:40:45 (ET). Electronically Signed: Trevor Alejandro MD at 8:41 EDT ,
--- NOTE | 2022-02-23 07:15 | EDS_ITS ---
HPI History of Present Illness Chief Complaint: Abd Pain Informant: patient Narrative Narrative: This is a very pleasant 36-year-old female presenting to the emergency department with increased left pelvic pain. The patient notes that she recently had a positive hCG test. She notes that her hCG levels were rising but have now started to fall but not returned to baseline. Her last hCG was 535 on 21 February. She had 2 ultrasounds recently that did not show any intrauterine or extrauterine gestation. (31 January and 07 February). She has had spotting. She has developed a left lower pelvic pain that is sharp. She notes continued spotting today. She spoke with her software test automation engineer was sent to the emergency department for further evaluation. OB did call us and request specific blood and imaging which is most appreciated. The patient denies any syncope/near syncope. [facility] Medical History History of recurrent miscarriages Infertility Home Medications cholecalciferol (vitamin D3) 50 mcg (2,000 unit) capsule 50 mcg PO DAILY 12/27/21 [History Last Taken Unknown] omega 7-ssl-arl-fish oil 60 mg-90 mg-500 mg capsule (Fish Oil) 1 cap PO DAILY 12/27/21 [History Last Taken Unknown] vitamin B complex 1 cap PO DAILY 12/27/21 [History Last Taken Unknown] Allergy/AdvReac Type Severity Reaction Status Date / Time ondansetron [From Zofran] Allergy Hives Verified 02/23/22 06:52 Surgical History H/O dilation and curettage S/P foot surgery, left Social History household members: spouse number of children: 0 current occupational status: employed 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 Smoking Status: Never smoker alcohol intake: never substance use type: does not use what type of physical activity do you participate in: none seatbelt use: always do you feel safe at home: Yes 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 ROS ROS ED Constitutional Constitutional ED: Denies chills or weight loss Eyes Eyes: Denies change in vision or diplopia ENT ENT ED: Denies ear pain, rhinorrhea or sore throat Cardiovascular Cardiovascular: Denies chest pain, orthopnea, palpitations or racing heartbeat Respiratory/Chest Respiratory/Chest: Denies cough, dyspnea or orthopnea Gastrointestinal Gastrointestinal: Reports abdominal pain; Denies diarrhea, nausea or vomiting Genitourinary Genitourinary ED: Reports other Details: Spotting ; Denies dysuria, hematuria or urinary frequency Musculoskeletal Musculoskeletal: Denies arthralgias or myalgias Integumentary Denies abscess or rash Neurologic Neurologic: Denies headache(s) or weakness Psychiatric Psychiatric: Denies anxiety, depression, suicidal ideation or suicidal thoughts Endocrine Endocrinology: Denies polydipsia, polyphagia or polyuria Allergic/Immunologic Allergic/Immunologic ED: Denies mouth swelling, tongue swelling or urticaria EXAM Physical Exam Const Vital Signs: 02/23/22 06:49 02/23/22 08:30 Temperature 97.9 F Temperature Source Temporal Pulse Rate 104 H 77 Respiratory Rate 15 Blood Pressure 129/79 H 113/70 Blood Pressure Mean 95 84 Pulse Ox 99 100 Oxygen Delivery Method Room Air Positive well nourished and well developed General Appearance ED: well developed HEENT Reports normocephalic, head/scalp atraumatic and moist mucous membranes Eyes PERRL and EOMs intact bilaterally Neck no lymphadenopathy, supple and no JVD Resp normal respiratory effort and clear to auscultation bilaterally Cardio regular rate, regular rhythm and no murmurs GI normal to inspection, nondistended, normoactive bowel sounds Palpation: soft and tender LLQ and suprapubic Back/Spine no CVA tenderness and normal ROM Extremity normal to inspection General Extremety ED: Negative for edema General Extremity: Negative for edema Neuro oriented x3 and CN's II-XII intact bilaterally Sensorium / Orientation: alert Motor Exam: strength 5/5 throughout Psych mental status grossly normal Mood & Affect: Negative for depressed or tearful Skin no rashes or lesions noted and no wounds MDM MDM MDM Narrative Medical decision making narrative: White count 4.4 with a hemoglobin of 12.4. hCG 445. Pelvic ultrasound was obtained which is concerning for ectopic . There is a complex soft tissue mass adjacent to the left ovary measuring 3.3 x 3.7 x 3.5 cm with associated free fluid. Case was discussed with Dr. Quesada. Dr. Quesada is come to the emergency department to discuss this with the patient. She is received IV fluids and is remained n.p.o. the plan is for the patient to go to the operating room. Lab Data Attestation: I reviewed the patient's lab results. Labs: Laboratory Results - last 24 hr 02/23/22 02/23/22 02/23/22 07:30 07:30 07:30 WBC 4.4 RBC 4.14 L Hgb 12.4 Hct 36.7 L MCV 88.6 MCH 30.0 MCHC 33.8 RDW Std Deviation 38.1 RDW Coeff of Suad 11.9 Plt Count 173 MPV 10.9 Immature Gran % (Auto) 0.500 Neut % (Auto) 59.2 Lymph % (Auto) 30.3 [place] % (Auto) 8.4 Eos % (Auto) 1.4 Baso % (Auto) 0.2 Absolute Neuts (auto) 2.6 Absolute Lymphs (auto) 1.33 Nucleated RBC % 0 PT 13.7 INR 1.1 APTT 25.6 Sodium 139 Potassium 3.6 Chloride 106 Carbon Dioxide 26.0 Anion Gap 7 BUN 20 H Creatinine 0.87 Estim Creat Clear Calc 87.77 Est GFR (MDRD) Af Amer 95 Est GFR (MDRD) Non-Af 79 BUN/Creatinine Ratio 23.0 H Glucose 89 Calcium 8.5 HCG, Quant 02/23/22 07:30 WBC RBC Hgb Hct MCV MCH MCHC RDW Std Deviation RDW Coeff of Suad Plt Count MPV Immature Gran % (Auto) Neut % (Auto) Lymph % (Auto) [place] % (Auto) Eos % (Auto) Baso % (Auto) Absolute Neuts (auto) Absolute Lymphs (auto) Nucleated RBC % PT INR APTT Sodium Potassium Chloride Carbon Dioxide Anion Gap BUN Creatinine Estim Creat Clear Calc Est GFR (MDRD) Af Amer Est GFR (MDRD) Non-Af BUN/Creatinine Ratio Glucose Calcium HCG, Quant 445 H Radiography Diagnostic Testing: Clinical Impression(s) from Imaging Studies Obstetrics Ultrasound 02/23/22 07:10 IMPRESSION: No intrauterine gestational sac. Concerning complex soft tissue mass adjacent to the left ovary measuring 3.3 x 3.7 x 3.5 cm with hyperemia and associated free fluid. Findings are suspicious for ectopic , LORRY WEIGHER consultation recommended Simple right ovarian cyst, no specific follow-up needed N.B. : The above Results were Read Back by Trevor Alejandro MD to Jensen Angel MD, and understanding confirmed on 02/23/2022 08:40:45 (ET). Electronically Signed: Trevor Alejandro MD at 8:41 EDT , ADDENDUM: 02/23/22 0848 IMPRESSION: No intrauterine gestational sac. Concerning complex soft tissue mass adjacent to the left ovary measuring 3.3 x 3.7 x 3.5 cm with hyperemia and associated free fluid. Findings are suspicious for ectopic , LORRY WEIGHER consultation recommended Simple right ovarian cyst, no specific follow-up needed N.B. : The above Results were Read Back by Trevor Alejandro MD to Jensen Angel MD, and understanding confirmed on 02/23/2022 08:40:45 (ET). Electronically Signed: Trevor Alejandro MD at 8:41 EDT , Discharge Plan Triage Chief Complaint: Abd Pain ED Provider: Melvin Ojeda Dx/Rx/DC Orders Clinical Impression: Acute pelvic pain, Ectopic Prescriptions: No Action omega 3-ujn-jlm-fish oil [Fish Oil] 60-90-500 mg capsule 1 cap PO DAILY vitamin B complex Capsule 1 cap PO DAILY cholecalciferol (vitamin D3) 50 mcg (2,000 unit) capsule 50 mcg PO DAILY Primary Care Provider: Jose Maria Mcdonough Referrals: Jose Maria Mcdonough MD [Primary Care Provider] - Disposition Disposition: Acute Care Hospital
[2022-02-23] MEDS: 0.9% Normal Saline 1,000 ML 999 ML IV (07:21)
[2022-02-23 07:43] LABS: Absolute Lymphocyte Count 1.33 X10^3/uL (0.83-4.51); Absolute Neutrophil Count 2.6 X10^3/uL (2.0-7.7); Basophil# 0.01 X10^3/uL; Basophil% 0.2 % (0-1); Eosinophil# 0.06 X10^3/uL; Eosinophils% 1.4 % (0-5); Hematocrit 36.7 % (37-47); Hemoglobin 12.4 g/dL (12.0-15.0); Lymphocyte # 1.33 X10^3/ul (0.83-4.51); Lymphocyte % 30.3 % (19-41); Mean Corp Hgb Conc 33.8 g/dL (32-36); Mean Corpuscular Volume 88.6 fL (81-99); Mean Platelet Vol. 10.9 fl (6.2-12.0); Monocyte# 0.37 X10^3/uL; Monocyte% 8.4 % (0-10); NRBC Flagged by Analyzer 0 % (0-5); Neutrophil % 59.2 % (47-70); Platelet Count 173 K/mm3 (150-450); RBC Distribution Width CV 11.9 % (11.6-14.6); RBC Distribution Width SD 38.1 fl (35.1-43.9); Red Blood Count 4.14 M/mm3 (4.2-5.4); White Blood Count 4.4 K/mm3 (4.4-11.0)
[2022-02-23 08:02] LABS: Anion Gap 7 (5-15); BUN 20 mg/dL (7-18); Calcium,Total 8.5 mg/dL (8.5-10.1); Chloride 106 mmol/L (98-107); Creatinine, Serum 0.87 mg/dL (0.55-1.02); EST Glomerular Filtration Rate 79 mL/min (>60); Est Glom Filt Rate - Afr Amer 95 mL/min (>60); Estimated Creatinine Clearance 87.77 ml/min; Glucose 89 mg/dL (74-106); Potassium 3.6 mmol/L (3.5-5.1); Sodium Level 139 mmol/L (136-145)
[2022-02-23 08:42] LABS: hCG Titer Quant., Serum 445 mIU/mL (1-3)
[2022-02-23 08:47] LABS: International Normalized Ratio 1.1; Prothrombin Time (Protime)PT. 13.7 SECONDS (11.7-14.9)
[2022-02-23 08:48] LABS: Partial Thromboplast Time 25.6 Seconds (24.1-36.2)
[2022-02-23] MEDS: Doxycycline 100 MG CAPSULE PO (09:41)
[2022-02-23] MEDS: Metoclopramide 10 MG/2 ML Vial 5 MG IV (10:11)
[2022-02-23] MEDS: Morphine 4 MG/ML Syringe IV (10:12)
--- NOTE | 2022-02-23 10:24 | NURSING ---
MED SURG OBS VANDEVELDE ECTOPIC
--- NOTE | 2022-02-23 11:00 | FAL_PTH ---
PATIENT: MARVIN OSWALD [place] [facility] [place][id number] AGE/SX: 36/F ROOM: RE02/23/[address]: Dr. Rose Mckeon DO : 1985 BED: DIS: 02/23/2022 SPEC #: [id number] RECD: 02/23/22 14:37 STATUS: MILDRED DARWIN #: [id number] JAQUAN: 02/23/22 11:[address]: Rose Mckeon DEPT: SURGICAL PATHOLOGY RECD BY: Peyton Rob ENTERED: 02/24/22 08:37 SP TYPE: ECTOPIC OTHR DR: Dr. Jose Maria Mcdonough MD Tissues: A - Uterine cervix, NOS B - ECTOPIC PREG Procedures: Surgery Specimen Level IV HEADER OPERATION: Laparoscopic removal ectopic , D & C PRE-OP DIAGNOSIS: Ruptured left ectopic TISSUE SUBMITTED: A ? Uterine curettings, B ? Left fallopian tube with ectopic MICROSCOPIC DIAGNOSIS A. Endometrium, curettings: Secretory endometrium. Rare fragments of benign superficial endocervix. B. Left fallopian tube, salpingectomy: Intraluminal chorionic villi and decidualized tissue consistent with tubal . AM:kristina 02/25/2022 MICROSCOPIC DESCRIPTION Slides are reviewed. GROSS DESCRIPTION A - Received in fixative is one container labeled with the patient's name and designated uterine curettings. The specimen consists of multiple irregular fragments of red-jorge soft tissue that in aggregate measure 2.2 x 2 x 0.2 cm. The specimen is totally submitted in one cassette. B - Received in fixative is one container labeled with the patient's name and designated fallopian tube with ectopic . The specimen consists of a dilated fallopian tube with fimbrial end measuring 6 cm in length and 1.8 cm in average diameter. Also submitted are multiple irregular blood clots aggregating to 7.5 x 5 x 1 cm. Studio Control Operator sections are submitted in four cassettes. / AM:kristina 02/24/2022 TC:5 CPT: 09579 x2
[2022-02-23] MEDS: Lactated Ringers 1,000 ML 75 ML IV (11:20)
--- NOTE | 2022-02-23 11:27 | PCM.HP.OB ---
HPI - General General Date of Admission: 02/23/22 HPI Narrative MAGI OSWALD, is a 36 who presents to [facility] with left lower quadrant pain. She has been followed with quants over the last several days/weeks due to presumed miscarriage/can not rule out ectopic . The quantitative levels never really gallo appropriately and then started falling but slowly. Her last quant 2 days ago was 500's and today is in the 400's. Ultrasound however shows a 3 x 3 x 3 hyperechoic mass in the left adnexa and the same side as her pain. There is also free fluid present. It is now clear that this is an ectopic . Magi states that she has a h/o ectopic in the past that was treated with methotrexate but she is unusure what side this was on. The recommendation is for a laparoscopy with removal of the left fallopian tube and D&C. [facility] Medical History History of recurrent miscarriages Infertility Home Medications cholecalciferol (vitamin D3) 50 mcg (2,000 unit) capsule 50 mcg PO DAILY 12/27/21 [History Last Taken Unknown] omega 5-kzr-ynd-fish oil 60 mg-90 mg-500 mg capsule (Fish Oil) 1 cap PO DAILY 12/27/21 [History Last Taken Unknown] vitamin B complex 1 cap PO DAILY 12/27/21 [History Last Taken Unknown] Allergy/AdvReac Type Severity Reaction Status Date / Time ondansetron [From Zofran] Allergy Hives Verified 02/23/22 11:05 Surgical History H/O dilation and curettage S/P foot surgery, left Social History household members: spouse number of children: 0 current occupational status: employed 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 Date Name GA/Weeks Outcome Route Bth Weight Infant Gen Labor Lgth Anesthesia Del Josefina Provider FOB 03/04/19 Ronit 40 live - full term 8lbs 10oz Female epidural [facility] Delivery Date: 03/04/19 Last Updated by: Nuvia Pope CPD FTP intolerance to labor AoD 7cm LTCS MIld PPH due to low uterine incision ROS Constitutional Constitutional: Denies change in weight, chills, fatigue, fever(s), headache(s), poor appetite or weakness Eyes Eyes: Denies blurry vision, change in vision, seeing flashes or spots in vision ENT HEENT: Denies dizziness, headache(s), loss taste/smell or sore throat Cardiovascular Cardiovascular: Denies chest pain, dizziness, dyspnea, irregular heart rhythm, leg edema, palpitations, rapid heart rate or vomiting Respiratory/Chest Respiratory/Chest: Denies chest tightness, cough, dyspnea or breast pain Gastrointestinal Gastrointestinal: Denies abdominal pain, anorexia, constipation, cramping, diarrhea, hemorrhoids, vomiting or weight changes Genitourinary Genitourinary: Denies dysuria, flank pain, genital lesions, genital pain, urinary frequency or urinary urgency Musculoskeletal Musculoskeletal: Denies back pain, difficulty walking, joint pain, limited range of motion, muscle cramps or numbness Integumentary Integumentary: Denies lesions or unusual bruising Neurologic Neurologic: Denies abnormal movements, abnormal speech, dizziness, numbness, seizure-like activity or syncope Psychiatric Psychiatric: Denies anxiety, behavioral changes, change in appetite, change in libido, cognitive impairment, confusion, depression, difficulty concentrating, hallucinations or suicidal thoughts Endocrine Endocrinology: Denies excessive sweating, polydipsia or polyuria Hematologic/Lymphatic Hematologic/Lymphatic: Denies easy bleeding, easy bruising or lymphadenopathy Allergic/Immunologic Allergic/Immunologic: Denies itchy eyes, lip swelling, seasonal rhinorrhea, rhinitis, throat swelling, tongue swelling, eczemia, wheezing or asthma Vital Signs Vital Signs Vital Signs: 02/23/22 06:49 02/23/22 08:30 02/23/22 09:46 Temperature 97.9 F 98 F Temperature Source Temporal Temporal Pulse Rate 104 H 77 100 Respiratory Rate 15 16 Respiratory Pattern Blood Pressure 129/79 H 113/70 128/72 H Blood Pressure Mean 95 84 90 Blood Pressure Source Monitor Blood Pressure Position Semi-Fowlers Blood Pressure Location Right Arm Pulse Ox 99 100 100 Oxygen Delivery Method Room Air Room Air 02/23/22 09:53 02/23/22 10:00 02/23/22 11:09 Temperature 98 F Temperature Source Temporal Pulse Rate 100 81 Respiratory Rate 16 16 Respiratory Pattern Normal Blood Pressure 128/72 H 122/67 H Blood Pressure Mean 90 85 Blood Pressure Source Blood Pressure Position Blood Pressure Location Pulse Ox 99 100 Oxygen Delivery Method Room Air Room Air Weight Weight: 149 lb 4.047 oz Body Mass Index (BMI) 23.3 Physical Exam Const alert, oriented x3, no apparent distress and healthy appearing General Appearance: cooperative; Negative for anxious Neck full ROM and supple Chest Chest: abnormal inspection of the chest Resp normal respiratory effort Effort and Inspection: able to speak in complete sentences Cardio regular rate GI soft to palpation and non-tender Inspection: gravid Palpation: soft; Negative for tender Extremity normal to inspection, full ROM and no clubbing, cyanosis or edema General Extremity: Negative for calf tenderness or edema Psych mental status grossly normal Labs Labs Labs: Blood Type O POSITIVE Antibody Screen NEGATIVE Hct 36.7 % (37-47) L Hgb 12.4 g/dL (12.0-15.0) Obstetrics US Glucose 1 Hr 50 gm 114 mg/dL (70-140) Rhogam given: No Assessment & Plan (1) Ectopic : PLAN: After discussing the patient's diagnosis and treatment plan options, patient wishes to proceed with surgical management. I have discussed with the patient the risks, benefits, and alternatives of the procedure which include but are not limited to risks of anesthesia, bleeding, infection, possible damage to bowel, bladder, or surrounding vasculature which could lead to additional surgery to evaluate any complications. Patient agrees to procedure and wishes to proceed. ACOG/uptodate references given for additional information regarding procedure. plan to proceed with diagnostic laparoscopy left salpingectomy, evacuation of hemoperitoneum and D&C. (2) Acute pelvic pain: Charges/Coding Multi Select Codes Visit Charges Office Visit/Consults: 60994 ED Visit; High/Urgent Severity
--- NOTE | 2022-02-23 11:33 | DCINST_ITS ---
Discharge Instructions Diet Discharge Diet: No restrictions Activity Discharge Activity: Return to Normal Activity, May Not Drive (for two weeks or while taking narcotic pain medications.), May Shower and May Take a Tub Bath (in 7 days) May resume sexual activity in: 1 week Weight Bearing Status: Full weight bearing Dressing / Incision Call your doctor if you observe: Using more than 1 pad per hour, Shortness of breath, Chest pain and Uncontrolled pain Suture Line Care: Avoid Pulling/Pushing and Avoid Pinching/Bending Remove Dressing in: 1 week (if present) Cleanse incision/area with: Soap & Water and Keep Dressing Clean & Dry Follow Up Care Please Follow Up With: Rose Mckeon DO When: Call to make an appointment with your doctor for a follow up incision check in 1-2 weeks. Test Results: Test results from this visit will be discussed in further detail at your follow- up appointment, if applicable. Discharge Plan Admission Primary Reason for Your Visit: removal of ectopic and D&C Attending Provider: Rose Mckeon Primary Care Provider: Jose Maria Mcdonough Discharge Orders/Prescriptions Prescriptions: New ibuprofen 800 mg tablet 800 mg PO Q8H PRN (Reason: pain) 7 Days Qty: 30 0RF oxycodone-acetaminophen [Percocet] 5-325 mg tablet 1 tab PO Q6H PRN (Reason: pain) 3 Days Qty: 10 0RF Continued omega 9-wag-bgs-fish oil [Fish Oil] 60-90-500 mg capsule 1 cap PO DAILY vitamin B complex Capsule 1 cap PO DAILY cholecalciferol (vitamin D3) 50 mcg (2,000 unit) capsule 50 mcg PO DAILY Referrals / Follow Up: Jose Maria Mcdonough MD [Primary Care Provider] - Disposition Disposition (needs filled in before D/C Order can be placed): Home, Self Care
[2022-02-23] MEDS: Bupivacaine 0.25% 30 ML Vial (12:10)
[2022-02-23] MEDS: Silver Nitrate (BKC) 1 EACH (12:17)
--- NOTE | 2022-02-23 12:20 | OP.PCM_ITS ---
Problems Associated Problem List Diagnoses (1) Ectopic : Operative Report Date of Procedure: 02/23/22 preoperative diagnosis: suspect left ruptured ectopic postoperative diagnosis: confirmed left ruptured ectopic surgery: laparoscopic left salpingectomy, evacuation of hemoperitoneum and dilation curettage surgeon: Dr. Rose Mckeon DO Music Video Producer: JAMES Hayes EBL: 100cc Complications: none Urine: 50cc Fluids: 1 liter Procedure details: The patient was brought to the operating room general anesthetic was administered without difficulty. She was placed in a dorsal supine position legs were placed in stirrups and she was prepped and draped in the usual sterile fashion. A weighted speculum was placed in the vagina the anterior lip of the cervix was grasped with a single-tooth tenaculum and the uterus was sounded to 10 cm and noted to be retroverted. Sharp curettage was performed until a gritty texture was noted and a scant amount of endometrial tissue was removed. A uterine manipulator was placed into the uterus the single-tooth tenaculum was removed from the cervix the weighted speculum was removed from the vagina gloves were changed and attention was turned towards the abdomen. After an infraumbilical incision of quarter percent Marcaine a 5 mm incision was made with a scalpel. Next a 5 mm trocar was inserted into the abdomen under direct visualization using the laparoscope. CO2 gas was used to insufflate the abdomen and the patient was placed in Trendelenburg position. A left lower quadrant 5 mm trocar was inserted into the abdomen. The left fallopian tube was noted to be enlarged and bleeding there was a mass on the left fallopian tube consistent with the ectopic that was suspected on ultrasound. First the hemoperitoneum was evacuated from the abdomen approximately 100 cc of blood was evacuated. Next a mini grasper was inserted suprapubically. The ovary was noted to be unaffected. The fallopian tube was grasped with a mini grasper and the underlying mesosalpinx was cauterized and cut the entire fallopian tube was removed then placed into an Endo Catch bag which was removed through the left lower quadrant 5 mm trocar site. Further evacuation was performed with suction irrigation there was noted to be a mild amount of endometriosis in the posterior aspect of the uterus no other signs of endometriosis noted. The liver bowel and stomach appeared normal. The trochars were removed and the CO2 gas was turned off the skin was closed with a 4-0 Monocryl subcuticular stitch and the skin was sealed with surgical glue. The vaginal instruments were removed there was noted to be some oozing at the trocar site this was repaired using a 4-0 Monocryl of the tenaculum site, excellent hemostasis was then noted. At this time the procedure was ended the patient tolerated the procedure well sponge lap and needle counts were correct x2. Multi Select Codes Urinary/Genital Urinary/Genital CPT Codes: 22584 Non-ob D&C and 70951 Treat ectopic lapro w/ salpingectomy
== END 2022-02-23 14:47 | disposition home or self-care (01) ==
LOC: ED 08:46 → SDC 09:40 → ACINP 09:43
PROVIDERS: Emergency Medicine; Emergency Provider Emergency Medicine; PCP Family Medicine; Visit Provider Obstetrics & Gynecology
PROC: 10T24ZZ Resection of Products of Conception, Ectopic, Percutaneous Endoscopic Approach (ICD-10-PCS; CPT 59150; principal; 2022-02-23 10:45)
DX: O00.102 Left tubal pregnancy without intrauterine pregnancy (principal); O08.89 Other complications following an ectopic and molar pregnancy; O99.611 Diseases of the digestive system complicating pregnancy, first trimester; K66.1 Hemoperitoneum
CPT/HCPCS: 59151; 58120; 00840; 76817; 80048; 84702; 85025; 85610; 85730; 86850; 86900; 86901; 88305; 99284; J7030; J7120; A4216

== ENCOUNTER → 2022-06-30 | Outpatient (CLI) | payer OTHER, SELFPAY ==
[2022-06-30 12:53] LABS: hCG Titer Quant., Serum 27 mIU/mL (1-3)
== END | disposition home or self-care (01) ==
LOC: LAB 11:25
PROVIDERS: PCP Family Medicine; Referring Provider Obstetrics & Gynecology; Visit Provider Obstetrics & Gynecology
DX: N92.0 Excessive and frequent menstruation with regular cycle (principal)
CPT/HCPCS: 36415; 84702

== ENCOUNTER → 2022-07-02 | Outpatient (CLI) | payer OTHER, SELFPAY ==
[2022-07-02 12:37] LABS: hCG Titer Quant., Serum 62 mIU/mL (1-3)
== END | disposition home or self-care (01) ==
LOC: LAB 11:27
PROVIDERS: PCP Family Medicine; Visit Provider Obstetrics & Gynecology
DX: N92.0 Excessive and frequent menstruation with regular cycle (principal)
CPT/HCPCS: 36415; 84702

== ENCOUNTER → 2022-07-04 | Outpatient (CLI) | payer OTHER, SELFPAY ==
[2022-07-04 12:47] LABS: hCG Titer Quant., Serum 67 mIU/mL (1-3)
== END | disposition home or self-care (01) ==
LOC: LAB 11:22
PROVIDERS: PCP Family Medicine; Referring Provider Nurse Practitioner Women's Health; Visit Provider Nurse Practitioner Women's Health
DX: N92.0 Excessive and frequent menstruation with regular cycle (principal)
CPT/HCPCS: 36415; 84702

== ENCOUNTER → 2022-07-06 | Outpatient (CLI) | payer OTHER, SELFPAY ==
[2022-07-06 14:16] LABS: hCG Titer Quant., Serum 63 mIU/mL (1-3)
== END | disposition home or self-care (01) ==
LOC: LAB 13:30
PROVIDERS: PCP Family Medicine; Referring Provider Obstetrics & Gynecology; Visit Provider Obstetrics & Gynecology
DX: O03.9 Complete or unspecified spontaneous abortion without complication (principal)
CPT/HCPCS: 36415; 84702

== ENCOUNTER → 2022-07-12 | Outpatient (CLI) | payer OTHER, SELFPAY ==
[2022-07-12 12:03] LABS: hCG Titer Quant., Serum 14 mIU/mL (1-3)
== END | disposition home or self-care (01) ==
LOC: LAB 10:59
PROVIDERS: PCP Family Medicine; Referring Provider Obstetrics & Gynecology; Visit Provider Obstetrics & Gynecology
DX: O03.9 Complete or unspecified spontaneous abortion without complication (principal)
CPT/HCPCS: 36415; 84702

== ENCOUNTER → 2022-07-19 | Outpatient (CLI) | payer OTHER, SELFPAY ==
[2022-07-19 12:54] LABS: hCG Titer Quant., Serum < 1 mIU/mL (1-3)
== END | disposition home or self-care (01) ==
LOC: LAB 11:01
PROVIDERS: PCP Family Medicine; Referring Provider Nurse Practitioner Women's Health; Visit Provider Nurse Practitioner Women's Health
DX: O03.9 Complete or unspecified spontaneous abortion without complication (principal)
CPT/HCPCS: 36415; 84702

== ENCOUNTER → 2022-12-28 | Outpatient (CLI) | payer OTHER, SELFPAY ==
[2022-12-28 11:43] LABS: hCG Titer Quant., Serum 36 mIU/mL (1-3)
== END | disposition home or self-care (01) ==
LOC: LAB 09:37
PROVIDERS: PCP Family Medicine; Referring Provider Obstetrics & Gynecology; Visit Provider Obstetrics & Gynecology
DX: N91.2 Amenorrhea, unspecified (principal)
CPT/HCPCS: 36415; 84702

== ENCOUNTER → 2022-12-30 | Outpatient (CLI) | payer OTHER, SELFPAY ==
[2022-12-30 13:59] LABS: hCG Titer Quant., Serum 68 mIU/mL (1-3)
== END | disposition home or self-care (01) ==
LOC: LAB 12:20
PROVIDERS: PCP Family Medicine; Referring Provider Obstetrics & Gynecology; Visit Provider Obstetrics & Gynecology
DX: N91.2 Amenorrhea, unspecified (principal)
CPT/HCPCS: 36415; 84702

== ENCOUNTER → 2023-01-02 | Outpatient (CLI) | payer OTHER, SELFPAY ==
[2023-01-02 07:42] LABS: hCG Titer Quant., Serum 141 mIU/mL (1-3)
== END | disposition home or self-care (01) ==
LOC: LAB 06:48
PROVIDERS: PCP Family Medicine; Referring Provider Obstetrics & Gynecology; Visit Provider Obstetrics & Gynecology
DX: O20.0 Threatened abortion (principal); Z3A.00 Weeks of gestation of pregnancy not specified
CPT/HCPCS: 36415; 84702

== ENCOUNTER → 2023-01-04 | Outpatient (CLI) | payer OTHER, SELFPAY ==
[2023-01-04 07:58] LABS: hCG Titer Quant., Serum 209 mIU/mL (1-3)
== END | disposition home or self-care (01) ==
LOC: LAB 07:07
PROVIDERS: PCP Family Medicine; Referring Provider Obstetrics & Gynecology; Visit Provider Obstetrics & Gynecology
DX: N96 Recurrent pregnancy loss (principal); N91.2 Amenorrhea, unspecified
CPT/HCPCS: 36415; 84702

== ENCOUNTER → 2023-01-04 | Outpatient (CLI) | payer OTHER, SELFPAY ==
--- NOTE | 2023-01-04 18:15 | US_ITS ---
EXAM: US , TRANSVAGINAL CLINICAL INDICATION: VIABILITY TECHNIQUE: Real-time transvaginal obstetrical ultrasound of the maternal pelvis and a first trimester with image documentation. Transvaginal imaging was used for better evaluation of the fetus and adnexa. COMPARISON: No relevant prior studies available. FINDINGS: GESTATION: There is no evidence of an intrauterine gestation. PLACENTA/AMNIOTIC FLUID: Cannot be adequately evaluated due to the early gestational age. UTERUS/CERVIX: The uterus measures 7.0 x 3.6 x 6.4 cm. Endometrium measures 6 mm. No myometrial mass. OVARIES: There is normal blood flow both ovaries. The right ovary measures 4.4 x 2.1 x 3.0 cm. There is a 2.1 x 2.0 x 1.9 cm anechoic structure in the dominant follicle or cyst. The left ovary measures 4.0 x 2.3 x 2.1 cm. There are multiple varices within the left adnexa. No mass. FREE FLUID: No free fluid. US/Transvaginal w/Preg US IMPRESSION: Right ovarian cyst. There are varices within the pelvis. No acute abnormalities are identified. There is no evidence of an intrauterine or ectopic . Electronically Signed: Quang Luong MD at 19:02 EDT ,
== END | disposition home or self-care (01) ==
LOC: US 18:09
PROVIDERS: PCP Family Medicine; Visit Provider Obstetrics & Gynecology
DX: Z34.90 Encounter for supervision of normal pregnancy, unspecified, unspecified trimester (principal)
CPT/HCPCS: 76817

== ENCOUNTER → 2023-01-06 | Outpatient (CLI) | payer OTHER, SELFPAY ==
[2023-01-06 08:02] LABS: hCG Titer Quant., Serum 134 mIU/mL (1-3)
== END | disposition home or self-care (01) ==
LOC: LAB 06:29
PROVIDERS: PCP Family Medicine; Referring Provider Obstetrics & Gynecology; Visit Provider Obstetrics & Gynecology
DX: N96 Recurrent pregnancy loss (principal)
CPT/HCPCS: 36415; 84702

== ENCOUNTER 2023-01-08 11:37 | Emergency (ER) | payer OTHER, SELFPAY ==
[2023-01-08 11:38] VITALS: BP 112/63; PULSE 85; RESP 16; TEMP 36.6; O2SAT 100; BMI 24.0
--- NOTE | 2023-01-08 11:56 | US_ITS ---
STUDY: FIRST TRIMESTER OBSTETRICAL ULTRASOUND REASON FOR EXAM: Female, 37 years old History of ectopic -- no pain -- no bleeding -- HCG 167 LMP: Unknown. TECHNIQUE: Transvaginal TECHNICAL QUALITY: Adequate. PRIOR ULTRASOUND: None. FINDINGS: There is no demonstrated intrauterine gestational sac. There is a visualized yolk sac. The placenta is non-visualized. There is no demonstrated embryo ( pole). The uterus measures 8.7 x 7.0 x 4.5 cm there is a small amount of fluid in the endometrium.. There is no demonstrated uterine fibroid. The cervix is closed. The right ovary measures 4.7 x 4.4 x 3.9 cm. There is 2.8 cm cyst. There is no visualized right adnexal mass or complex lesion. The left ovary measures 4.2 x 3.4 x 3.0 cm. There is 0.6 cm cyst There is no visualized left adnexal mass or complex lesion. There is mild fluid in the cul de sac. US/Transvaginal w/Preg US IMPRESSION: No intrauterine gestation seen. Bilateral ovarian cysts. Mild free fluid. Electronically Signed: Ariel Roblero MD at 13:56 EDT ,
--- NOTE | 2023-01-08 12:07 | ED.VIS.FEGU ---
HPI HPI - Female History of Present Illness Chief Complaint: Narrative Narrative: 37-year-old female, states she is either G9 or G10, P1 with history of ectopic pregnancies presents from home as instructed by her SHORT FILLER BUNCH MACHINE OPERATOR, Dr. Nasreen Carmona, for methotrexate. She relates history that she had an ectopic/tubal in February of last year which ruptured and they had to remove her fallopian tube. Since then, she had a regular miscarriage in June that was intrauterine. Her last menstrual period was in November, few weeks ago. She has been being followed by her SHORT FILLER BUNCH MACHINE OPERATOR where she had fluctuating beta hCGs. She states that they were increasing appropriately, but then went down, and now she had an hCG drawn today which was rising again. The concern is for ectopic as she states that she had an ultrasound on Monday in the office which showed no evidence of a heartbeat, or intrauterine . She denies any symptoms, no pelvic cramping or vaginal bleeding. She states that she was sent here for further testing and methotrexate by her SHORT FILLER BUNCH MACHINE OPERATOR. [facility]SH [facility] Medical History History of recurrent miscarriages Infertility Home Medications cholecalciferol (vitamin D3) 50 mcg (2,000 unit) capsule 50 mcg PO DAILY 12/27/21 [History Last Taken Unknown] omega 8-qqa-tes-fish oil 60 mg-90 mg-500 mg capsule (Fish Oil) 1 cap PO DAILY 12/27/21 [History Last Taken Unknown] vitamin B complex 1 cap PO DAILY 12/27/21 [History Last Taken Unknown] Allergy/AdvReac Type Severity Reaction Status Date / Time ondansetron [From Zofran] Allergy Hives Verified 01/08/23 12:57 Surgical History H/O dilation and curettage S/P foot surgery, left S/P laparoscopic surgery (~02/23/22) Social History household members: spouse number of children: 0 current occupational status: employed 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 HEENT: No sore throat. No neck pain. No loss of vision. No rhinorrhea. Cardiovascular: No chest pain. No palpitations. No pedal edema. Respiratory: No cough, no shortness of breath. Abdominal: No abdominal pain. No nausea. No vomiting. Genitourinary: No dysuria. No hematuria. No vaginal bleeding. No pelvic pain or cramping. Musculoskeletal: No myalgias. No arthralgias. Neurologic: No headaches. No dizziness. No lightheadedness. Skin: No rash. No change in color. Psychiatric: No depression. No anxiety. EXAM Physical Exam Narrative Exam Narrative: Afebrile. Vital signs noted. HEENT: Normocephalic. Atraumatic. PERRL, EOMI. Neck soft and supple. No point tenderness or step off. Cardiovascular: Regular rate and rhythm. No murmurs, rubs, or gallops appreciated. Respiratory: No tachypnea. Lungs clear to auscultation bilaterally. Gastrointestinal: Abdomen soft, nontender, with normoactive bowel sounds. No rebound or guarding. Genitourinary: Deferred Neurological: Awake. Alert. Nonfocal, nonlateralizing. Skin: No rash. Normal color. No pallor. Musculoskeletal: No pedal edema. Full range of motion extremities. Const Vital Signs: 01/08/23 11:38 Temperature 98 F Temperature Source Temporal Pulse Rate 85 Respiratory Rate 16 Blood Pressure 112/63 Blood Pressure Mean 79 Pulse Ox 100 Oxygen Delivery Method Room Air MDM MDM MDM Narrative Medical decision making narrative: I reviewed the patient's prior laboratory work, and discussed patient with her SHORT FILLER BUNCH MACHINE OPERATOR, Dr. Nasreen Carmona. SHORT FILLER BUNCH MACHINE OPERATOR would like pelvic ultrasound performed, and CBC and CMP be drawn to check her creatinine and her liver function as a baseline. She informed me that the beta-hCG was only in the 100s today. Patient is familiar with the use of methotrexate as she states she had it 7 or 8 years ago. Her other miscarriages or after she had been seen by her infertility physicians as a new that they were intrauterine pregnancies. Additionally, Dr. Nasreen Carmona has put in the methotrexate dosing. They will be given in 2 separate shots. I reviewed the patient's laboratory work, she has normal white count of 7.7, hemoglobin normal at 12.6, hematocrit slightly low at 36.9, platelet count normal at 184. BUN is normal at 14 with creatinine also normal at 0.86, unremarkable electrolytes otherwise. I reviewed the ultrasound results which shows no evidence of a gestational sac and hence no heartbeat. This is an ectopic . As I have discussed the use of methotrexate with her SHORT FILLER BUNCH MACHINE OPERATOR, Dr. Nasreen Carmona and that is the reason why she was sent here, she was administered methotrexate injections and told to follow-up with SHORT FILLER BUNCH MACHINE OPERATOR in 2 days for repeat quantitative measurements. Return instructions to the emergency department were reviewed. I do not feel she requires observation at this time. Disposition is discharged home in stable condition. History & Record Review Discussion w/independent historian: Patient Additional record(s) reviewed:: Prior ED visit and Prior labs Lab Data Attestation: I reviewed the patient's lab results. Labs: Laboratory Results - last 24 hr 01/08/23 13:00 WBC 7.7 RBC 4.10 L Hgb 12.6 Hct 36.9 L MCV 90.0 MCH 30.7 MCHC 34.1 RDW Std Deviation 37.3 RDW Coeff of Suad 11.5 L Plt Count 184 MPV 10.4 Immature Gran % (Auto) 0.300 Neut % (Auto) 64.5 Lymph % (Auto) 25.6 Braxton % (Auto) 7.0 Eos % (Auto) 2.2 Baso % (Auto) 0.4 Absolute Neuts (auto) 5.0 Absolute Lymphs (auto) 1.98 Nucleated RBC % 0 Sodium 140 Potassium 3.8 Chloride 107 Carbon Dioxide 28.0 Anion Gap 5 BUN 14 Creatinine 0.86 Estim Creat Clear Calc 87.94 Est GFR (MDRD) Af Amer 96 Est GFR (MDRD) Non-Af 79 BUN/Creatinine Ratio 16.3 Glucose 93 Calcium 8.3 L Total Bilirubin 0.40 AST 8 L ALT 21 Alkaline Phosphatase 53 Total Protein 7.0 Albumin 3.6 Globulin 3.4 Albumin/Globulin Ratio 1.1 Radiography Diagnostic Testing: Clinical Impression(s) from Imaging Studies Obstetrics Ultrasound 01/08/23 11:56 IMPRESSION: No intrauterine gestation seen. Bilateral ovarian cysts. Mild free fluid. Electronically Signed: Ariel Roblero MD at 13:56 EDT , Discharge Plan Triage Chief Complaint: Other Complaint: Vag Bleeding ED Provider: Moreno Espinosa Dx/Rx/DC Orders Clinical Impression: Ectopic , Prior methotrexate therapy, History of recurrent miscarriages Instructions: Methotrexate Ectopic Prescriptions: No Action omega 0-rjk-oie-fish oil [Fish Oil] 60-90-500 mg capsule 1 cap PO DAILY vitamin B complex Capsule 1 cap PO DAILY cholecalciferol (vitamin D3) 50 mcg (2,000 unit) capsule 50 mcg PO DAILY Primary Care Provider: Jose Maria Mcdonough Referrals: Jose Maria Mcdonough MD [Primary Care Provider] - Nasreen Carmona MD [Med Staff - Active Staff] - 2 Days Disposition Disposition: Home, Self Care
[2023-01-08 13:15] LABS: Absolute Lymphocyte Count 1.98 X10^3/uL (0.83-4.51); Basophil# 0.03 X10^3/uL; Basophil% 0.4 % (0-1); Eosinophil# 0.17 X10^3/uL; Eosinophils% 2.2 % (0-5); Hematocrit 36.9 % (37-47); Hemoglobin 12.6 g/dL (12.0-15.0); Lymphocyte # 1.98 X10^3/ul (0.83-4.51); Lymphocyte % 25.6 % (19-41); Mean Corp Hgb Conc 34.1 g/dL (32-36); Mean Corpuscular Hgb 30.7 pg (27.0-32.0); Mean Platelet Vol. 10.4 fl (6.2-12.0); Monocyte# 0.54 X10^3/uL; NRBC Flagged by Analyzer 0 % (0-5); Neutrophil # 4.99 X10^3/uL (2.7-7.7); Neutrophil % 64.5 % (47-70); Platelet Count 184 K/mm3 (150-450); RBC Distribution Width CV 11.5 % (11.6-14.6); RBC Distribution Width SD 37.3 fl (35.1-43.9); White Blood Count 7.7 K/mm3 (4.4-11.0)
[2023-01-08 13:26] LABS: ALB/GLOB Ratio 1.1 RATIO (0.9-2.4); AST(SGOT) 8 U/L (15-37); Alanine Aminotransfer ALT/SGPT 21 U/L (13-56); Albumin, Serum 3.6 g/dL (3.2-5.0); Alkaline Phosphatase 53 U/L (45-117); Anion Gap 5 (5-15); BUN 14 mg/dL (7-18); BUN/Creat Ratio 16.3 RATIO (10-20); Calcium,Total 8.3 mg/dL (8.5-10.1); Chloride 107 mmol/L (98-107); Creatinine, Serum 0.86 mg/dL (0.55-1.02); EST Glomerular Filtration Rate 79 mL/min (>60); Est Glom Filt Rate - Afr Amer 96 mL/min (>60); Estimated Creatinine Clearance 87.94 ml/min; Globulin 3.4 g/dL (2.2-4.2); Glucose 93 mg/dL (74-106); Potassium 3.8 mmol/L (3.5-5.1); Sodium Level 140 mmol/L (136-145)
--- NOTE | 2023-01-08 14:19 | ED.RN ---
IM INJECTIONS OF METHOTREXATE DONE TO BILATERAL GM PER DR CRENSHAW, UNABLE TO DOCUMENT ON JUL AT THIS TIME. PHARMACY AWARE. RN AWARE
== END 2023-01-08 15:00 | disposition home or self-care (01) ==
PROVIDERS: Emergency Provider Emergency Medicine; PCP Family Medicine; Visit Provider Emergency Medicine
DX: O00.90 Unspecified ectopic pregnancy without intrauterine pregnancy (principal)
CPT/HCPCS: 76817; 80053; 85025; 96372; 99282; A4216; J9250

== ENCOUNTER → 2023-01-08 | Outpatient (CLI) | payer OTHER, SELFPAY ==
[2023-01-08 09:27] LABS: hCG Titer Quant., Serum 167 mIU/mL (1-3)
== END | disposition home or self-care (01) ==
PROVIDERS: PCP Family Medicine; Visit Provider Obstetrics & Gynecology
DX: O03.4 Incomplete spontaneous abortion without complication (principal)
CPT/HCPCS: 36415; 84702

== ENCOUNTER 2023-01-10 20:29 | Emergency (ER) | payer OTHER, SELFPAY ==
[2023-01-10 20:30] VITALS: BP 119/71; PULSE 101; RESP 16; TEMP 36.4; O2SAT 99; BMI 23.5
--- NOTE | 2023-01-10 21:07 | US_ITS ---
INDICATION: ectopic - increased pelvic pain 2 days after methotrexate therapy EXAMINATION: Ultrasound US OB Transvaginal TECHNIQUE: Transvaginal (for optimal evaluation of the adnexa) pelvic ultrasound was performed. Grayscale, spectral waveform, and color flow Doppler evaluation of the adnexa. COMPARISON: 01/08/2023 LMP: [11/22/2022 Beta-hC FINDINGS: UTERUS: 7.3 x 7.4 x 4.0 cm. RIGHT OVARY: 5.2 x 4.5 x 4.4 cm. Anechoic cyst 4.1 x 3.6 x 3.5 cm. Doppler flow demonstrated. LEFT OVARY: 5.4 x 4.2 x 3.9 cm. Cyst with partial septation measures 4.4 x 3.2 x 3.5 cm. Doppler flow demonstrated. FREE FLUID: Small amount about the left adnexa and cul-de-sac with debris. INTRAUTERINE GESTATIONAL SAC(s) (size/shape): None. Endometrial stripe 6 mm thickness.. YOLK SAC: Not identified POLE: Not identified HEART MOTION: Not detected. US/Transvaginal w/Preg US IMPRESSION: No intrauterine . Persistent ectopic cannot be excluded given present findings. Bilateral ovarian cysts. Electronically Signed: Riley Kang MD at 23:01 EDT ,
[2023-01-10 21:53] LABS: Absolute Lymphocyte Count 1.32 X10^3/uL (0.83-4.51); Absolute Neutrophil Count 9.2 X10^3/uL (2.0-7.7); Basophil# 0.03 X10^3/uL; Basophil% 0.3 % (0-1); Eosinophil# 0.05 X10^3/uL; Eosinophils% 0.5 % (0-5); Hematocrit 39.4 % (37-47); Lymphocyte # 1.32 X10^3/ul (0.83-4.51); Lymphocyte % 11.9 % (19-41); Mean Corpuscular Volume 90.8 fL (81-99); Mean Platelet Vol. 10.8 fl (6.2-12.0); Monocyte# 0.49 X10^3/uL; Monocyte% 4.4 % (0-10); NRBC Flagged by Analyzer 0 % (0-5); Neutrophil # 9.18 X10^3/uL (2.7-7.7); Neutrophil % 82.5 % (47-70); Platelet Count 181 K/mm3 (150-450); RBC Distribution Width CV 11.4 % (11.6-14.6); RBC Distribution Width SD 37.9 fl (35.1-43.9); Red Blood Count 4.34 M/mm3 (4.2-5.4); White Blood Count 11.1 K/mm3 (4.4-11.0)
[2023-01-10 22:10] LABS: Anion Gap 7 (5-15); BUN 11 mg/dL (7-18); BUN/Creat Ratio 13.8 RATIO (10-20); Calcium,Total 8.6 mg/dL (8.5-10.1); Chloride 106 mmol/L (98-107); EST Glomerular Filtration Rate 86 mL/min (>60); Est Glom Filt Rate - Afr Amer 104 mL/min (>60); Estimated Creatinine Clearance 94.54 ml/min; Glucose 104 mg/dL (74-106); Potassium 3.7 mmol/L (3.5-5.1); Sodium Level 138 mmol/L (136-145)
[2023-01-10 22:14] LABS: hCG Titer Quant., Serum 288 mIU/mL (1-3)
[2023-01-10] MEDS: 0.9% Normal Saline 1,000 ML 999 ML IV (22:29)
--- NOTE | 2023-01-10 23:00 | EDS_ITS ---
HPI HPI - Female History of Present Illness Chief Complaint: Abd Pain Narrative Narrative: 37-year-old female with history of ectopic pregnancies was instructed by her DRIED YEAST SUPERVISOR to come into the ER because she already received methotrexate for presumed ectopic she is having more right-sided pelvic pain. She has history of ectopic on the left and had a fallopian tube removed after rupture. Patient states initially this evening she was having a lot of pain which is seems to have resolved. She has not had any vaginal bleeding or discharge. Her hCG has gone up previously. She was sent in to have her hCG rechecked and to have a transvaginal ultrasound to rule out ruptured ectopic . Patient was given methotrexate 2 days ago. [facility] Medical History History of recurrent miscarriages Infertility Home Medications cholecalciferol (vitamin D3) 50 mcg (2,000 unit) capsule 50 mcg PO DAILY 12/27/21 [History Last Taken Unknown] omega 3-swo-ysx-fish oil 60 mg-90 mg-500 mg capsule (Fish Oil) 1 cap PO DAILY 12/27/21 [History Last Taken Unknown] vitamin B complex 1 cap PO DAILY 12/27/21 [History Last Taken Unknown] Allergy/AdvReac Type Severity Reaction Status Date / Time ondansetron [From Zofran] Allergy Hives Verified 01/08/23 12:57 Surgical History H/O dilation and curettage S/P foot surgery, left S/P laparoscopic surgery (~02/23/22) Social History household members: spouse number of children: 0 current occupational status: employed 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 Smoking Status: Never smoker alcohol intake: never substance use type: does not use what type of physical activity do you participate in: none seatbelt use: always do you feel safe at home: Yes 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 VANESSA ROS ED Constitutional Constitutional ED: Denies chills or fever(s) Eyes Eyes: Denies change in vision ENT ENT ED: Denies rhinorrhea or sore throat Cardiovascular Cardiovascular: Denies chest pain or palpitations Respiratory/Chest Respiratory/Chest: Denies cough or dyspnea Gastrointestinal Gastrointestinal: Reports abdominal pain; Denies nausea or vomiting Genitourinary Genitourinary ED: Denies dysuria or hematuria Musculoskeletal Musculoskeletal: Denies arthralgias Integumentary Denies abscess or Abrasions Neurologic Neurologic: Denies headache(s) or paresthesias Psychiatric Psychiatric: Denies anxiety or depression EXAM Physical Exam Const Vital Signs: 01/10/23 20:30 Temperature 97.6 F L Temperature Source Temporal Pulse Rate 101 H Respiratory Rate 16 Blood Pressure 119/71 Blood Pressure Mean 87 Pulse Ox 99 Oxygen Delivery Method Room Air Positive well nourished General Appearance ED: NAD HEENT Reports moist mucous membranes Eyes PERRL and EOMs intact bilaterally Resp normal respiratory effort and clear to auscultation bilaterally Auscultation: Negative for rales, rhonchi or wheezes Cardio regular rate and regular rhythm GI Palpation: tender RLQ Extremity normal to inspection Neuro oriented x3 and CN's II-XII intact bilaterally Sensorium / Orientation: alert Motor Exam: strength 5/5 throughout Psych mental status grossly normal Skin no rashes or lesions noted MDM MDM MDM Narrative Medical decision making narrative: Patient started saying that she is having improvement in her pain however on examination she is pretty tender in the right lower quadrant. I did recommend that we repeat labs and an hCG. Her CBC shows her white blood cell count is 11.1. It was 7.72 days ago. Hemoglobin is 13 today and it was 12.62 days ago. Renal function appears normal. Electrolytes are normal. hCG quantitative from 1 67-2 88. Will obtain transvaginal ultrasound. Transvaginal ultrasound shows no ectopic or intrauterine . Discussed with Dr. Quesada and she recommended giving more methotrexate. This will be ordered for the patient. We will follow-up with DRIED YEAST SUPERVISOR. Impression: 1. Ectopic 2. Ovarian cyst Lab Data Attestation: I reviewed the patient's lab results. Labs: Laboratory Results - last 24 hr 01/10/23 01/10/23 21:40 21:41 WBC 11.1 H RBC 4.34 Hgb 13.0 Hct 39.4 MCV 90.8 MCH 30.0 MCHC 33.0 RDW Std Deviation 37.9 RDW Coeff of Suad 11.4 L Plt Count 181 MPV 10.8 Immature Gran % (Auto) 0.400 Neut % (Auto) 82.5 H Lymph % (Auto) 11.9 L Rosebud % (Auto) 4.4 Eos % (Auto) 0.5 Baso % (Auto) 0.3 Absolute Neuts (auto) 9.2 H Absolute Lymphs (auto) 1.32 Nucleated RBC % 0 Sodium 138 Potassium 3.7 Chloride 106 Carbon Dioxide 25.0 Anion Gap 7 BUN 11 Creatinine 0.80 Estim Creat Clear Calc 94.54 Est GFR (MDRD) Af Amer 104 Est GFR (MDRD) Non-Af 86 BUN/Creatinine Ratio 13.8 Glucose 104 Calcium 8.6 HCG, Quant 288 H Blood Type O POSITIVE Antibody Screen NEGATIVE Radiography Diagnostic Testing: Clinical Impression(s) from Imaging Studies Obstetrics Ultrasound 01/10/23 21:07 IMPRESSION: No intrauterine . Persistent ectopic cannot be excluded given present findings. Bilateral ovarian cysts. Electronically Signed: Riley Kang MD at 23:01 EDT Reading Location ID and State: [facility] / [place] Tel , Service support , Discharge Plan Triage Chief Complaint: Abd Pain ED Provider: Sergio Sandoval Dx/Rx/DC Orders Instructions: ED Methotrexate for Ectopic ... Prescriptions: No Action omega 2-svl-qsw-fish oil [Fish Oil] 60-90-500 mg capsule 1 cap PO DAILY vitamin B complex Capsule 1 cap PO DAILY cholecalciferol (vitamin D3) 50 mcg (2,000 unit) capsule 50 mcg PO DAILY Primary Care Provider: Jose Maria Mcdonough Referrals: Jose Maria Mcdonough MD [Primary Care Provider] - Disposition Disposition: Home, Self Care
[2023-01-11 00:35] VITALS: BP 109/62; PULSE 65; RESP 13; O2SAT 99
== END 2023-01-11 00:50 | disposition home or self-care (01) ==
PROVIDERS: Student in an Organized Health Care Education/Training Program; Emergency Provider Emergency Medicine; PCP Family Medicine; Visit Provider Emergency Medicine
DX: N83.201 Unspecified ovarian cyst, right side (principal); N83.202 Unspecified ovarian cyst, left side
CPT/HCPCS: 76817; 80048; 84702; 85025; 86850; 86900; 86901; 96361; 96374; 99283; J7030; A4216; J9250

== ENCOUNTER → 2023-01-14 | Outpatient (CLI) | payer OTHER, SELFPAY ==
[2023-01-14 09:10] LABS: hCG Titer Quant., Serum 259 mIU/mL (1-3)
== END | disposition home or self-care (01) ==
LOC: LAB 07:20
PROVIDERS: PCP Family Medicine; Referring Provider Obstetrics & Gynecology; Visit Provider Obstetrics & Gynecology
DX: O00.90 Unspecified ectopic pregnancy without intrauterine pregnancy (principal); O26.20 Pregnancy care for patient with recurrent pregnancy loss, unspecified trimester; Z92.21 Personal history of antineoplastic chemotherapy
CPT/HCPCS: 36415; 84702

== ENCOUNTER → 2023-01-16 | Outpatient (CLI) | payer OTHER, SELFPAY ==
[2023-01-16 17:25] LABS: hCG Titer Quant., Serum 173 mIU/mL (1-3)
== END | disposition home or self-care (01) ==
LOC: LAB 16:21
PROVIDERS: PCP Family Medicine; Referring Provider Obstetrics & Gynecology; Visit Provider Obstetrics & Gynecology
DX: O00.90 Unspecified ectopic pregnancy without intrauterine pregnancy (principal)
CPT/HCPCS: 36415; 84702

== ENCOUNTER → 2023-01-20 | Outpatient (CLI) | payer OTHER, SELFPAY ==
[2023-01-20 07:59] LABS: hCG Titer Quant., Serum 103 mIU/mL (1-3)
== END | disposition home or self-care (01) ==
LOC: LAB 06:53
PROVIDERS: PCP Family Medicine; Referring Provider Obstetrics & Gynecology; Visit Provider Obstetrics & Gynecology
DX: O00.90 Unspecified ectopic pregnancy without intrauterine pregnancy (principal)
CPT/HCPCS: 36415; 84702

== ENCOUNTER → 2023-01-27 | Outpatient (CLI) | payer OTHER, SELFPAY ==
[2023-01-27 07:54] LABS: Absolute Lymphocyte Count 1.37 X10^3/uL (0.83-4.51); Absolute Neutrophil Count 3.3 X10^3/uL (2.0-7.7); Basophil# 0.03 X10^3/uL; Basophil% 0.5 % (0-1); Eosinophil# 0.12 X10^3/uL; Eosinophils% 2.1 % (0-5); Hematocrit 34.8 % (37-47); Hemoglobin 11.3 g/dL (12.0-15.0); Lymphocyte # 1.37 X10^3/ul (0.83-4.51); Lymphocyte % 24.3 % (19-41); Mean Corp Hgb Conc 32.5 g/dL (32-36); Mean Corpuscular Volume 92.3 fL (81-99); Mean Platelet Vol. 10.2 fl (6.2-12.0); Monocyte% 14.2 % (0-10); NRBC Flagged by Analyzer 0 % (0-5); Neutrophil # 3.29 X10^3/uL (2.7-7.7); Neutrophil % 58.5 % (47-70); Platelet Count 212 K/mm3 (150-450); RBC Distribution Width CV 12.2 % (11.6-14.6); RBC Distribution Width SD 40.2 fl (35.1-43.9); Red Blood Count 3.77 M/mm3 (4.2-5.4); White Blood Count 5.6 K/mm3 (4.4-11.0)
[2023-01-27 08:15] LABS: ALB/GLOB Ratio 0.9 RATIO (0.9-2.4); AST(SGOT) 9 U/L (15-37); Alanine Aminotransfer ALT/SGPT 29 U/L (13-56); Albumin, Serum 3.2 g/dL (3.2-5.0); Alkaline Phosphatase 59 U/L (45-117); Anion Gap 4 (5-15); BUN 6 mg/dL (7-18); Calcium,Total 8.4 mg/dL (8.5-10.1); Chloride 109 mmol/L (98-107); Creatinine, Serum 0.75 mg/dL (0.55-1.02); EST Glomerular Filtration Rate 93 mL/min (>60); Est Glom Filt Rate - Afr Amer 113 mL/min (>60); Globulin 3.7 g/dL (2.2-4.2); Glucose 96 mg/dL (74-106); Potassium 3.5 mmol/L (3.5-5.1); Protein, Total 6.9 g/dL (6.4-8.2); Sodium Level 140 mmol/L (136-145)
[2023-01-27 08:16] LABS: hCG Titer Quant., Serum 51 mIU/mL (1-3)
== END | disposition home or self-care (01) ==
LOC: LAB 06:31
PROVIDERS: PCP Family Medicine; Referring Provider Obstetrics & Gynecology; Visit Provider Obstetrics & Gynecology
DX: O00.90 Unspecified ectopic pregnancy without intrauterine pregnancy (principal)
CPT/HCPCS: 36415; 80053; 84702; 85025

== ENCOUNTER → 2023-02-03 | Outpatient (CLI) | payer OTHER, SELFPAY ==
[2023-02-03 08:38] LABS: hCG Titer Quant., Serum 36 mIU/mL (1-3)
== END | disposition home or self-care (01) ==
LOC: LAB 07:09
PROVIDERS: PCP Family Medicine; Referring Provider Obstetrics & Gynecology; Visit Provider Obstetrics & Gynecology
DX: O09.90 Supervision of high risk pregnancy, unspecified, unspecified trimester (principal); Z3A.00 Weeks of gestation of pregnancy not specified
CPT/HCPCS: 36415; 84702

== ENCOUNTER → 2023-02-10 | Outpatient (CLI) | payer OTHER, SELFPAY ==
[2023-02-10 09:13] LABS: hCG Titer Quant., Serum < 1 mIU/mL (1-3)
== END | disposition home or self-care (01) ==
LOC: LAB 07:16
PROVIDERS: PCP Family Medicine; Referring Provider Obstetrics & Gynecology; Visit Provider Obstetrics & Gynecology
DX: O00.90 Unspecified ectopic pregnancy without intrauterine pregnancy (principal)
CPT/HCPCS: 36415; 84702

== ENCOUNTER 2023-03-28 07:05 | Outpatient (CLI) | payer OTHER, SELFPAY ==
[2023-03-28 07:54] LABS: Hematocrit 39.6 % (37-47); Hemoglobin 13.1 g/dL (12.0-15.0); Mean Corp Hgb Conc 33.1 g/dL (32-36); Mean Corpuscular Hgb 30.5 pg (27.0-32.0); Mean Corpuscular Volume 92.3 fL (81-99); Mean Platelet Vol. 10.5 fl (6.2-12.0); Platelet Count 182 K/mm3 (150-450); RBC Distribution Width CV 11.8 % (11.6-14.6); Red Blood Count 4.29 M/mm3 (4.2-5.4); White Blood Count 5.6 K/mm3 (4.4-11.0)
[2023-03-28 08:23] LABS: Vitamin B12 826 pg/mL (211-911); Vitamin D,25 Hydroxy 37.1 ng/mL
[2023-03-28 08:39] LABS: AST(SGOT) 13 U/L (15-37); Alanine Aminotransfer ALT/SGPT 21 U/L (13-56); Albumin, Serum 3.9 g/dL (3.2-5.0); Alkaline Phosphatase 58 U/L (45-117); Anion Gap 4 (5-15); BUN 14 mg/dL (7-18); BUN/Creat Ratio 15.2 RATIO (10-20); Calcium,Total 8.6 mg/dL (8.5-10.1); Chloride 106 mmol/L (98-107); Creatinine, Serum 0.92 mg/dL (0.55-1.02); EST Glomerular Filtration Rate 73 mL/min (>60); Est Glom Filt Rate - Afr Amer 89 mL/min (>60); Estradiol 38.4 pg/mL; Follicle Stimulating Hormone 5.5 mIU/mL; Globulin 3.9 g/dL (2.2-4.2); Glucose 86 mg/dL (74-106); Luteinizing Hormone 5.5 mIU/mL; Potassium 3.7 mmol/L (3.5-5.1); Protein, Total 7.8 g/dL (6.4-8.2); Sodium Level 137 mmol/L (136-145)
[2023-03-28 10:17] LABS: Homocysteine 6.4 umol/L (3.2-10.7)
[2023-04-02 09:07] LABS: 17-Hydroxyprogesterone 44 ng/dL (.)
[2023-04-06 00:07] LABS: Androstenedione 92 ng/dL (41-262); Anti-Mullerian Hormone,Serum 6.27 ng/mL (.); Protein S, Funtional 60 % (63-140); Sex Hormone-binding Globulin 39.7 nmol/L (24.6-122.0); Testosterone, Free 0.12 ng/dL (0.10-0.85); Testosterone, Total 12 ng/dL (8-60)
== END 2023-03-28 23:59 | disposition home or self-care (01) ==
PROVIDERS: PCP Family Medicine; Referring Provider Obstetrics & Gynecology; Visit Provider Obstetrics & Gynecology
DX: E55.9 Vitamin D deficiency, unspecified (principal); N96 Recurrent pregnancy loss; E28.9 Ovarian dysfunction, unspecified
CPT/HCPCS: 36415; 80053; 82157; 82306; 82533; 82607; 82627; 82670; 82746; 83001; 83002; 83090; 83498; 83516; 84270; 84402; 84403; 85027; 85306; 82626

== ENCOUNTER → 2023-04-28 | Outpatient (CLI) | payer OTHER, SELFPAY ==
[2023-04-28 07:51] LABS: Glucose 75GTT - Fasting 87 mg/dL (70-99)
[2023-04-28 08:07] LABS: T3 Total - Triiodothyronine 1.02 ng/mL (0.6-1.81)
[2023-04-28 08:09] LABS: Free T3 2.6 pg/mL (2.18-3.98); T4 Free Direct 0.95 ng/dL (0.76-1.46); Thyroid Stim Hormone (TSH) 1.36 uIU/mL (0.358-3.74)
[2023-04-28 08:13] LABS: Glucose 75GTT - 30 minutes 114 mg/dL (100-160)
[2023-04-28 08:23] LABS: Insulin 75GTT - Fasting 7.5 mU/L (2.6-37.6)
[2023-04-28 08:28] LABS: Prolactin 7.7 ng/mL; Thyroid Stim Hormone (TSH) 1.17 uIU/mL (0.358-3.74)
[2023-04-28 08:32] LABS: Insulin 75GTT - 30 MIN 133.2 mU/L (Not Estab.)
[2023-04-28 08:40] LABS: Glucose 75GTT - 60 minutes 75 mg/dL (100-160)
[2023-04-28 08:53] LABS: Insulin 75GTT - 60 min 93.5 mU/L (Not Estab)
[2023-04-28 08:56] LABS: Prolactin 7.1 ng/mL; Thyroid Stim Hormone (TSH) 1.06 uIU/mL (0.358-3.74)
[2023-04-28 09:00] LABS: Glucose 72 mg/dL (74-106)
[2023-04-28 09:07] LABS: Insulin 63.2 mU/L (2.6-37.6)
[2023-04-28 09:40] LABS: Glucose 75GTT - 120 minutes 59 mg/dL (70-140)
[2023-04-28 09:46] LABS: Insulin 75GTT - 120 min 18.6 mU/L (Not Estab.)
[2023-05-02 15:07] LABS: Thyroglobulin Antibody < 1.0 IU/mL (0.0-0.9); Thyroid Peroxidase AB 14 IU/mL (0-34)
== END | disposition home or self-care (01) ==
LOC: LAB 06:53
PROVIDERS: PCP Family Medicine; Referring Provider Obstetrics & Gynecology; Visit Provider Obstetrics & Gynecology
DX: E28.9 Ovarian dysfunction, unspecified (principal); N96 Recurrent pregnancy loss
CPT/HCPCS: 36415; 82947; 82951; 82952; 83525; 84146; 84439; 84443; 84480; 84481; 86376; 86800

== ENCOUNTER → 2023-06-19 | Outpatient (CLI) | payer OTHER, SELFPAY ==
--- OUTSIDE RECORDS SUMMARY | 2023-06-19 07:22 | XMS RPT_ITS | CCD ---
Author Name Unknown Address [address] [place] [address] Organization [facility] Care Team Providers Care Cylindrical Mixer Name Role Phone SERAFIN MCDONOUGH Primary Care Unavailable JAYCE FREIRE Admitting Unavai lable JAYCE FREIRE Attending Unavai labBARBI Manzo Consulting Unavailable JOHNNY PIZANO Consulting Unavailable JAYCE FREIRE Admitting Unavai labJAYCE Piña Attending SERAFIN Watts Primary Care Unavailable MANDY SEVILLA Consulting Unavailable JOHNNY PIZANO Consulting Unavailable JAYCE FREIRE Attending Irenevai labBARBI Manzo Consulting Unavailable SERAFIN MCDONOUGH Primary Care Unavailable JAYCE FREIRE Admitting Unavai lable YAQUELIN RICO Consulting Unavailable Serafin Mcdonough MD Primary Care Provider SERAFIN MCDONOUGH Referring SERAFIN Caputo Primary Care Unavailab SERAFIN Vogel Attending Unavailab SERAFIN Vogel Primary Care UnavailAngy Briscoe MD Primary Care Provider ANGY MORALES Referring Unavailable ANGY MORALES Attending Unavailable ANGY MORALES Primary Care Unavailable Allergies Allergy Classification Reported Allergen(s) Allergy Type Date of Onset Reaction(s) Facility (2 sources) Sertraline; Translations: [SERTRALINE] Drug Allergy 07-08-2020 Other: See Comments [facility] Work Phone: Medications Completed/Discontinued Medications Medication Drug Class(es) Dates Sig (Normalized) Sig (Original) iopamidol (Isovue-300) 61 % injection 20 mL (1 source) Start: 03-29-2023 End: 03-29-2023 iopamidol (Isovue-300) 61 % injection 20 mL Problems Active Problems Problem Classification Problem Date Documented Da te Episodic/Chronic Anxiety disorders (3 sources) Generalized anxiety disorder; Translations: [Generalized anxiety disorder] Onset: 08-16-2022 Chronic Ectopic (6 sources) Ruptured ectopic ; Translations: [Unspecified ectopic without intrauterine ] Onset: 08-16-2022 Episodic Other complications of (2 sources) Missed ; Translations: [MISSED ] Onset: 12-29-2020 Episodic Other female genital disorders (2 sources) Recurrent loss; Translations: [RECURRENT LOSS] Onset: 12-29-2020 Episodic Other female genital disorders (2 sources) H/O: miscarriage; Translations: [Recurrent loss] Onset: 08-16-2022 Episodic Other nervous system disorders (2 sources) H/O: migraine; Translations: [Personal history of other diseases of the nervous system and sense organs] Onset: 08-16-2022 Episodic Other nervous system disorders (1 source) Personal history of other diseases of the nervous system and sense organs; Translations: [History of migraine] Onset: 08-16-2022 Episodic Unclassified (1 source) CONTACT WITH AND SUSPECTED EXP COVID-19; Translations: [CONTACT WITH AND SUSPECTED EXP COVID-19] Onset: 07-09-2020 Past or Other Problems Problem Classification Problem Date Documented Da te Episodic/Chronic Other complications of ; puerperium affecting management of mother (2 sources) Retained portions of placenta and membranes, without hemorrhage; Translations: [RETAIN PORTION PLCNTA MEMB NO HEMOR] Onset: 08-25-2020 Episodic Results Test Name Value Interpretation Reference Range Facil ity Vital Signs Date Time Vital Sign Value Performing Clinician Norma nunez 08-16-2022 09:58-0400 Body height 168.6 cm Serafin Mcdonough MD Work Phone: [facility] 08-16-2022 09:58-0400 Body weight 69.67 kg Serafin Mcdonough MD Work Phone: [facility] 08-16-2022 09:58-0400 Diastolic blood pressure 64 mm[Hg] Serafin Mcdonough MD Work Phone: [facility] 08-16-2022 09:58-0400 Heart rate 92 /min Serafin Mcdonough MD Work Phone: [facility] 08-16-2022 09:58-0400 Respiratory rate 16 /min Serafin Mcdonough MD Work Phone: [facility] 08-16-2022 09:58-0400 SaO2% (BldA) [Mass fraction] 99 % Serafin Mcdonough MD Work Phone: [facility] 08-16-2022 09:58-0400 Systolic blood pressure 102 mm[Hg] Serafin Mcdonough MD Work Phone: [facility] Encounters Encounter Date Encounter Type Care Provider Facility Start: 03-29-2023 End: 03-30-2023 ambulatory [facility] Start: 03-29-2023 End: 03-29-2023 Subsequent hospital visit by physician Angy Crum MD Work Phone: [facility] Procedures Date Procedure Procedure Detail Performing Clinician Start: 03-29-2023 Cath & saline/contra st sonohyster/hysterosalpi Angy Crum MD Work Phone: Plan of Treatment Date Care Activity Detail Author Start: 2046 RSV Immunization age d 60 or older (1 - 1-dose 60+ series) RSV Immunization aged 60 or older (1 - 1-dose 60+ series) [facility] Start: 2036 Zoster Vaccines (1 of 2) Zoster Vacc koffi (1 of 2) [facility] Start: 08-17-2023 COVID-19 VACCINE (3 - Booster for Pfizer series) COVID-19 VACCINE (3 - Booster for Pfizer series) [facility] Immunizations Immunization Date Immunization Notes Care Provider Fa cili 02-25-2020 influenza, seasonal, injectable, preservative free Serafin Mcdonough MD Work Phone: [facility] Work Phone: 02-25-2020 influenza virus vaccine, unspecified formulation Angy Crum MD Work Phone: [facility] 02-08-2019 influenza, seasonal, injectable, preservative free Serafin Mcdonough MD Work Phone: [facility] Work Phone: 02-20-2018 Influenza, injectabl e, Madin Laura Canine Kidney, preservative free, quadrivalent Serafin Mcdonough MD Work Phone: [facility] Work Phone: 02-20-2018 influenza, seasonal, injectable Serafin Mcdonough MD Work Phone: [facility] 02-23-2017 influenza, injectabl e, quadrivalent, preservative free Serafin Mcdonough MD Work Phone: [facility] Work Phone: 01-28-2016 influenza, injectabl e, quadrivalent, contains preservative Serafin Mcdonough MD Work Phone: [facility] 02-14-2012 influenza, seasonal, injectable Serafin Mcdonough MD Work Phone: [facility] Work Phone: Payers Date Payer Category Payer Private Health Insurance [id number] 1986 Unknown [id number] 1986 Unknown [id number] 1986 Unknown [id number] 1958 Private Health Insurance [id number] Social History Date Type Detail Facility Start: 08-16-2022 [facility] End: 06-29-2012 History of tobacco use Current smoker [facility] End: 06-29-2012 History of tobacco use Cigarette Smoker [facility] Start: 08-16-2022 Tobacco use and exposure Smoke less tobacco non-user [facility] Start: 08-16-2022 Alcohol intake Current drinke r of alcohol (finding) [facility] Start: 08-15-2022 History SDOH Alcohol Frequency 2 [facility] Start: 08-15-2022 History SDOH Alcohol Std Drinks 1 [facility] Start: 08-15-2022 History SDOH Social Connections Phone 5 [facility] Start: 04-23-2020 History SDOH Social Connections Meetings 98 [facility] Start: 08-15-2022 History SDOH Social Connections Living 3 [facility] Start: 04-23-2020 Education 18 [facility] Start: 08-16-2021 Alcohol Comment Rare [facility] Start: 1985 Sex Assigned At Not on file [facility] Tobacco smoking stat [facility] Tobacco smoking consumption unknown [facility] Gender identity Not on file [facility] Progress note 08-16-2022 Note Date & Type Note Facility 08-16-2022 Note HNO ID: [id number] Author: Serafin Mcdonough MD Service: ? Author Type: Physician Type: Progress Notes Filed: 08/16/2022 10:56 AM Note Text: Chief Complaint Patient presents with: preventative wellness HPI Magi Oswald is a 36 year old female who presents here today for Above Complaints. Notes that she had ruptured ectopic back in February with left salpingectomy without complications. Following up with [facility] Dr. Mckeon with last OV 07/06 after having 4th miscarriage. Patient has been to fertility specialist in the past and required IVF to have her daughter. Blood work at that time was reportedly negative for other causes of multiple miscarriages. Anxiety: in remission without rx or counseling. PHQ-2 / Depression screen He in the past two weeks denies having felt down, depressed, hopeless or with little interest or pleasure in doing things. Migraines: Rare headaches which she treats with tylenol PRN. Denies triggers for her migraines. Negative pap and HPV 12/2021. Past medical history, appointments, medications, allergies reviewed. Previous Medical History PAST MEDICAL HISTORY Diagnosis Date Dysmenorrhea Ectopic 02/23/2022 Foot fracture, left 12/10/2014 Generalized anxiety disorder Migraines Miscarriage 2020 x6 [place] product of IVF Previous Surgical History PAST SURGICAL HISTORY Procedure Laterality Date SECTION HX 02/2019 PAST SURGICAL HISTORY OF 05/08/2007 compound fx of left ankle PAST SURGICAL HISTORY OF 2020 DANDC x4 REMOVAL DEEP IMPLANT 05/08/2012 left foot Family History FAMILY HISTORY Problem Relation Age of Onset other (negative) Paternal Grandfather other (leukemia) Paternal Aunt No Known Problems Daughter Patient Allergies ALLERGIES Allergen Reactions Zoloft [Sertraline] Other: See Comments Night sweats Current Medications No current outpatient medications on file prior to visit. No current facility-administered medications on file prior to visit. Social History Social History Tobacco Use Smoking status: Former Types: Cigarettes Quit date: 06/29/2012 Years since quittin.1 Smokeless tobacco: Never Substance Use Topics Alcohol use: Yes Comment: Rare Drug use: No Review of Symptoms REVIEW OF SYSTEMS GENERAL: No weight loss, malaise or fevers HEENT: Negative for frequent or significant headaches, No changes in hearing or vision, no nose bleeds or other nasal problems NECK: Negative for lumps, goiter, pain and significant neck swelling RESPIRATORY: Negative for cough, hemoptysis, wheezing, COPD, dyspnea or shortness of breath CARDIOVASCULAR: Negative for chest pain, leg swelling, hypertension, CHF or palpitations GI: No nausea, vomiting, or diarrhea : No history of dysuria, frequency or incontinence NETWORKER: Negative for abnormal vaginal bleeding, abnormal vaginal discharge MUSCULOSKELETAL: Negative for joint pain or swelling, back pain or muscle pain SKIN: Negative for lesions, rash, and itching EXAM: BP 102/64 Pulse 92 Resp 16 Ht 168.6 cm (5' 6.38 ) Wt 69.7 kg (153 lb 9.6 oz) LMP 07/28/2022 SpO2 99% BMI 24.51 kg/m? General Appearance: Well appearing, alert, in no acute distress, well-hydrated, well nourished.. Skin: Skin color, texture, turgor normal, no suspicious rashes or lesions. Head: Normocephalic, no masses, lesions, tenderness or abnormalities. Eyes: Anicteric sclera. Pupils are equally round and reactive to light. Extraocular movements are intact. . Ears: External ears normal, canals clear. Oropharynx: Lips, mucosa, and tongue normal, teeth and gums normal, oropharynx normal. Neck: Supple, no adenopathy; thyroid symmetric, normal size, no bruits. Lungs: Lungs clear to auscultation. No wheezing, rhonchi, rales.. Heart: RRR without murmur, gallop, or rubs. No ectopy. Abdomen: Normal abdominal exam, Abdomen soft, non-tender. Bowel sounds normal. No masses, organomegaly. Extremities: No deformities, edema, skin discoloration, clubbing or cyanosis. Good capillary refill. . Musculoskeletal: No joint swelling, deformity, or tenderness. Health Maintenance List HEPATITIS B(1 of 3 - 3-dose series) Never done DTAP,TDAP,TD(1 - Tdap) Never done COVID-19 VACCINE(3 - Booster for Pfizer series) due on 05/20/2021 DEPRESSION ASSESSMENT Never done PAP TESTING due on 08/16/2022 HPV TESTING due on 08/16/2022 INFLUENZA(Season Ended) due on 01/06/2023 HEPATITIS C SCREENING Discontinued HIV SCREENING Discontinued Data reviewed Component Latest Ref Rng AND Units 08/12/2021 Protein, Total 6.3 - 8.0 g/dL 7.5 Albumin 3.9 - 4.9 g/dL 4.5 Calcium 8.5 - 10.2 mg/dL 9.3 Bilirubin, Total 0.2 - 1.3 mg/dL 0.5 Alkaline Phosphatase 34 - 123 U/L 60 AST 13 - 35 U/L 17 ALT 7 - 38 U/L 20 Glucose 74 - 99 mg/dL 78 BUN 7 - 21 mg/dL 17 Creatinine 0.58 - 0.96 mg/dL 0.97 (H) Sodium 136 - 144 mmol/L 140 Potassium 3. (more content not included)... [facility] History of Present illness Narrative 08-16-2022 Serafin Mcdonough MD - 08/16/2022 10:07 AM EDT Note Date & Type Note Facility 08-16-2022 History of Presen t illness Narrative Chief Complaint Patient presents with: preventative wellness HPI Magi Oswald is a 36 year old female who presents here today for Above Complaints. Notes that she had ruptured ectopic back in February with left salpingectomy without complications. Following up with [facility] Dr. Mckeon with last OV 07/06 after having 4th miscarriage. Patient has been to fertility specialist in the past and required IVF to have her daughter. Blood work at that time was reportedly negative for other causes of multiple miscarriages. Anxiety: in remission without rx or counseling. PHQ-2 / Depression screen He in the past two weeks denies having felt down, depressed, hopeless or with little interest or pleasure in doing things. Migraines: Rare headaches which she treats with tylenol PRN. Denies triggers for her migraines. Negative pap and HPV 12/2021. Past medical history, appointments, medications, allergies reviewed. Previous Medical History PAST MEDICAL HISTORY Diagnosis Date Dysmenorrhea Ectopic 02/23/2022 Foot fracture, left 12/10/2014 Generalized anxiety disorder Migraines Miscarriage 2020 x6 product of IVF Previous Surgical History PAST SURGICAL HISTORY Procedure Laterality Date SECTION HX 02/2019 PAST SURGICAL HISTORY OF 05/08/2007 compound fx of left ankle PAST SURGICAL HISTORY OF 2020 D&C x4 REMOVAL DEEP IMPLANT 05/08/2012 left foot Family History FAMILY HISTORY Problem Relation Age of Onset other (negative) Paternal Grandfather other (leukemia) Paternal Aunt No Known Problems Daughter Patient Allergies ALLERGIES Allergen Reactions Zoloft [Sertraline] Other: See Comments Night sweats Current Medications No current outpatient medications on file prior to visit. No current facility-administered medications on file prior to visit. Social History Social History Tobacco Use Smoking status: Former Types: Cigarettes Quit date: 06/29/2012 Years since quittin.1 Smokeless tobacco: Never Substance Use Topics Alcohol use: Yes Comment: Rare Drug use: No Review of Symptoms REVIEW OF SYSTEMS GENERAL: No weight loss, malaise or fevers HEENT: Negative for frequent or significant headaches, No changes in hearing or vision, no nose bleeds or other nasal problems NECK: Negative for lumps, goiter, pain and significant neck swelling RESPIRATORY: Negative for cough, hemoptysis, wheezing, COPD, dyspnea or shortness of breath CARDIOVASCULAR: Negative for chest pain, leg swelling, hypertension, CHF or palpitations GI: No nausea, vomiting, or diarrhea : No history of dysuria, frequency or incontinence NETWORKER: Negative for abnormal vaginal bleeding, abnormal vaginal discharge MUSCULOSKELETAL: Negative for joint pain or swelling, back pain or muscle pain SKIN: Negative for lesions, rash, and itching EXAM: BP 102/64 Pulse 92 Resp 16 Ht 168.6 cm (5' 6.38 ) Wt 69.7 kg (153 lb 9.6 oz) LMP 07/28/2022 SpO2 99% BMI 24.51 kg/m General Appearance: Well appearing, alert, in no acute distress, well-hydrated, well nourished.. Skin: Skin color, texture, turgor normal, no suspicious rashes or lesions. Head: Normocephalic, no masses, lesions, tenderness or abnormalities. Eyes: Anicteric sclera. Pupils are equally round and reactive to light. Extraocular movements are intact. . Ears: External ears normal, canals clear. Oropharynx: Lips, mucosa, and tongue normal, teeth and gums normal, oropharynx normal. Neck: Supple, no adenopathy; thyroid symmetric, normal size, no bruits. Lungs: Lungs clear to auscultation. No wheezing, rhonchi, rales.. Heart: RRR without murmur, gallop, or rubs. No ectopy. Abdomen: Normal abdominal exam, Abdomen soft, non-tender. Bowel sounds normal. No masses, organomegaly. Extremities: No deformities, edema, skin discoloration, clubbing or cyanosis. Good capillary refill. . Musculoskeletal: No joint swelling, deformity, or tenderness. Health Maintenance List HEPATITIS B(1 of 3 - 3-dose series) Never done DTAP,TDAP,TD(1 - Tdap) Never done COVID-19 VACCINE(3 - Booster for Pfizer series) due on 05/20/2021 DEPRESSION ASSESSMENT Never done PAP TESTING due on 08/16/2022 HPV TESTING due on 08/16/2022 INFLUENZA(Season Ended) due on 01/06/2023 HEPATITIS C SCREENING Discontinued HIV SCREENING Discontinued Data reviewed Component Latest Ref Rng & Units 08/12/2021 Protein, Total 6.3 - 8.0 g/dL 7.5 Albumin 3.9 - 4.9 g/dL 4.5 Calcium 8.5 - 10.2 mg/dL 9.3 Bilirubin, Total 0.2 - 1.3 mg/dL 0.5 Alkaline Phosphatase 34 - 123 U/L 60 AST 13 - 35 U/L 17 ALT 7 - 38 U/L 20 Glucose 74 - 99 mg/dL 78 BUN 7 - 21 mg/dL 17 Creatinine 0.58 - 0.96 mg/dL 0.97 (H) Sodium 136 - 144 mmol/L 140 Potassium 3.7 - 5.1 mmol/L 4.1 Chloride 97 - 105 mmol/L 104 CO2 22 - 30 mmol/L 25 Anion Gap 9 - 18 mmol/L 11 eGFR >=60 mL/min/1.73m 79 WBC 3.70 - 11.00 k/uL 6.32 RBC 3.90 - 5.20 m/uL 4.48 Hemoglobin 11.5 - 15.5 g/dL 13.0 Hematocrit 36.0 - 46.0 % 40.9 MCV 80.0 - 100.0 fL 91.3 MCH 26.0 - 34.0 pg 29.0 MCHC 30.5 - 36.0 g/dL 31.8 RDW-CV 11.5 - 15.0 % 11.7 Platelet Count 150 - 400 k/uL 182 MPV 9.0 - 12.7 fL 11.8 Absolute nRBC <0.01 k/uL <0.01 Cholesterol, Total <200 mg/dL 157 Triglyceride <150 mg/dL 79 HDL Cholesterol >39 mg/dL 41 Non HDL Cholesterol <130 mg/dL 116 Fasting Time hrs 13 VLDL Cholesterol <30 mg/dL 16 TC:HDL Ratio <5.10 3.83 LDL Cholesterol <100 mg/dL 100 (H) LDL:HDL Ratio <2.54 2.44 ASSESSMENT/PLAN: 1. Annual physical exam - ICD9: V70.0, ICD10: Z00.00 (primary diagnosis) - Counseled on healthy diet and regular exercise - Calcium intake with supplements or by diet of 1000 mg/day for under 50, 8620-6374 mg/day for 50+ - Follow up for annual exam in one year - CBC + DIFF - COMP METABOLIC PANEL - LIPID PANEL, NONFASTING 2. MARTINA (generalized anxiety disorder) - ICD9: 300.02, ICD10: F41.1 In remission 3. History of migraine - ICD9: V12.49, ICD10: Z86.69 Rare headaches. Continue tylenol PRN and avoid triggers. Red flags for re-assessment reviewed with patient in detail. 4. Ruptured ectopic - ICD9: 633.90, ICD10: O00.90 S/p salpingectomy. 5. History of multiple miscarriages - ICD9: 629.81, ICD10: N96 Following up regularly with [facility]. Will obtain records regarding previous workup. F/u PRN. Serafin Mcdonough MD documented in this encounter [facility] History of Past illness Narrative 06-29-2016 Note Date & Type Note Facility documented as of this encounter (statuses as of 08/16/2022) [facility] Evaluation note Note Date & Type Note Facility documented in this encounter [facility] Evaluation note Note Date & Type Note Facility documented in this encounter [facility] Summary Purpose Family History No Family History Records FoundNo Family History Records FoundNo Family History Records FoundNo Family History Records Found Advance Directives No Advanced Directives Records FoundNo Advanced Directives Records FoundNo Advanced Directives Records FoundNo Advanced Directives Records Found Additional Source Comments INFORMATION SOURCE (unrecogn ized section and content) DATE CREATED AUTHOR AUTHOR'S ORGANIZ ATION 04/15/2021 [facility] DATE CREATED AUTHOR AUTHOR'S ORGANIZ ATION 08/23/2022 [facility] DATE CREATED AUTHOR AUTHOR'S ORGANIZ ATION 03/31/2023 [facility] Source Comments (unrecognize d section and content) In the event this informatio n is protected by the Federal Confidentiality of Alcohol and Drug Abuse Patient Records regulations: The Federal rules restrict any use of the information to criminally investigate or prosecute any alcohol or drug abuse patient.[facility] Reason for Visit (unrecogniz ed section and content) Care Teams (unrecognized sec tion and content) Cylindrical Mixer Relationship Specialty Start Date End Date Angy Morales MD [address] [place] [address] PCP - General Obstetrics and Gynecology 03/29/23 FOR RECORDS PERTAINING TO PATIENTS WHO ARE OR HAVE BEEN ENROLLED IN A CHEMICAL DEPENDENCY/SUBSTANCEABUSE PROGRAM, SOME INFORMATION MAY BE OMITTED. This clinical summary was aggregated from multiple sources. Caution should be exercised in using it in the provision of clinical care. This summary normalizes information from multiple sources, and as a consequence, information in this document may materially change the coding, format and clinical context of patient data. In addition, data may be omitted in some cases. CLINICAL DECISIONS SHOULD BE BASED ON THE PRIMARY CLINICAL RECORDS. [employer] [facility]. provides no warranty or guarantee of the accuracy or completeness of information in this document.
[2023-06-25 09:07] LABS: Sex Hormone-binding Globulin 31.9 nmol/L (24.6-122.0); Testosterone, % Free 2.17 % (0.50-2.80); Testosterone, Free 0.33 ng/dL (0.10-0.85); Testosterone, Total 15 ng/dL (8-60)
== END | disposition home or self-care (01) ==
PROVIDERS: PCP Family Medicine; Referring Provider Obstetrics & Gynecology; Visit Provider Obstetrics & Gynecology
DX: E28.9 Ovarian dysfunction, unspecified (principal); N96 Recurrent pregnancy loss
CPT/HCPCS: 36415; 82627; 82670; 84270; 84402; 84403; 82626

== ENCOUNTER → 2023-07-15 | Outpatient (CLI) | payer OTHER, SELFPAY ==
--- OUTSIDE RECORDS SUMMARY | 2023-07-15 08:24 | XMS RPT_ITS | CCD ---
Author Name Unknown Address [address] [facility] [address] [place] [address] Organization [facility] Care Team Providers Care Director Of Music Name Role Phone SERAFIN MCDONOUGH Primary Care [...] [SERTRALINE] Drug Allergy 07-08-2020 Other: See Comments [facility] Work Phone: Medications Completed/Discontinued Medications Medication Drug Class(es) Dates Sig (Normalized) Sig (Original) iopamidol (Isovue-300) 61 % injection 20 mL (1 source) Start: 03-29-2023 End: 03-29-2023 iopamidol (Isovue-300) 61 % injection 20 mL Problems Active Problems Problem Classification Problem Date Documented Da te Episodic/Chronic Anxiety disorders (3 sources) Generalized anxiety disorder; Translations: [Generalized anxiety disorder] Onset: 08-16-2022 Chronic Ectopic (7 sources) Ruptured ectopic ; Translations: [Unspecified ectopic [...] 168.6 cm Serafin Mcdonough MD Work Phone: [facility] 08-16-2022 09:58-0400 Body weight 69.67 kg Serafin Mcdonough MD Work Phone: [facility] 08-16-2022 09:58-0400 Diastolic blood pressure 64 mm[Hg] Serafin Mcdonough MD Work Phone: [facility] 08-16-2022 09:58-0400 Heart rate 92 /min Serafin Mcdonough MD Work Phone: [facility] 08-16-2022 09:58-0400 Respiratory rate 16 /min Serafin Mcdonough MD Work Phone: [facility] 08-16-2022 09:58-0400 SaO2% (BldA) [Mass fraction] 99 % Serafin Mcdonough MD Work Phone: [facility] 08-16-2022 09:58-0400 Systolic blood pressure 102 mm[Hg] Serafin Mcdonough MD Work Phone: [facility] Encounters Encounter Date Encounter Type Care Provider Facility Start: 03-29-2023 End: 03-30-2023 ambulatory [facility] Start: 03-29-2023 End: 03-29-2023 Subsequent hospital [...] or older (1 - 1-dose 60+ series) [facility] Start: 2036 Zoster Vaccines (1 of 2) Zoster Vacc koffi (1 of 2) [facility] Start: 08-17-2023 COVID-19 VACCINE (3 - Booster for Pfizer series) COVID-19 VACCINE (3 - Booster for Pfizer series) [facility] Immunizations Immunization Date Immunization Notes Care Provider Fa cili 02-25-2020 influenza, seasonal, injectable, preservative free Serafin Mcdonough MD Work Phone: [facility] Work Phone: 02-25-2020 influenza virus vaccine, unspecified formulation Angy Crum MD Work Phone: [facility] 02-08-2019 influenza, seasonal, injectable, preservative free Serafin Mcdonough MD Work Phone: [facility] Work Phone: 02-20-2018 Influenza, injectabl e, Madin Laura Canine Kidney, preservative free, quadrivalent Serafin Mcdonough MD Work Phone: [facility] Work Phone: 02-20-2018 influenza, seasonal, injectable Serafin Mcdonough MD Work Phone: [facility] 02-23-2017 influenza, injectabl e, quadrivalent, preservative free Serafin Mcdonough MD Work Phone: [facility] Work Phone: 01-28-2016 influenza, injectabl e, quadrivalent, contains preservative Serafin Mcdonough MD Work Phone: [facility] 02-14-2012 influenza, seasonal, injectable Serafin Mcdonough MD Work Phone: [facility] Work Phone: Payers Date Payer Category Payer Private Health Insurance [id number] 1986 Unknown [id number] 1986 Unknown [id number] 1986 Unknown [id number] 1959 Private Health Insurance [id number] Social History Date Type Detail Facility Start: [facility]-16-2022 [facility] End: 06-29-2012 History of tobacco use Current smoker [facility] End: 06-29-2012 History of tobacco use Cigarette Smoker [facility] Start: 08-16-2022 Tobacco use and exposure Smoke less tobacco non-user [facility] Start: 08-16-2022 Alcohol intake Current drinke r of alcohol (finding) [facility] Start: 08-15-2022 History SDOH Alcohol Frequency [address] [facility] Start: 08-15-2022 History SDOH Alcohol Std Drinks [address] [facility] Start: 08-15-2022 History SDOH Social Connections Phone [address] [facility] Start: 04-23-2020 History SDOH Social Connections Meetings [address] [facility] Start: 08-15-2022 History SDOH Social Connections Living [address] [facility] Start: 04-23-[address] [facility] Start: 08-16-2021 [facility] Start: 1985 Sex Assigned At Not on file [facility] smoking consumption unknown [facility] Gender identity Not on file [facility] Progress note 08-16-2022 Note Date & Type Note Facility 08-16-2022 Note HNO ID: [id number] Author: Serafin Mcdonough MD Service: ? Author Type: Physician Type: Progress Notes Filed: 08/16/2022 10:56 AM Note Text: Chief Complaint Patient presents with: preventative wellness HPI Magi Oswald is a 36 year old female who presents here today for Above Complaints. Notes that she had ruptured ectopic back in February with left salpingectomy without complications. Following up with GERIATRIC CARE MANAGER Dr. Mckeon with last OV 07/06 after [...] Generalized anxiety disorder Migraines Miscarriage 2020 x6 [place] product of IVF Previous Surgical History PAST [...] No history of dysuria, frequency or incontinence GERIATRIC CARE MANAGER: Negative for abnormal vaginal bleeding, abnormal vaginal [...] 140 Potassium 3. (more content not included)... [facility] History of Present illness Narrative 08-16-2022 Serafin [...] left salpingectomy without complications. Following up with GERIATRIC CARE MANAGER Dr. Mckeon with last OV 07/06 after [...] Generalized anxiety disorder Migraines Miscarriage 2020 x6 [place] product of IVF Previous Surgical History PAST [...] No history of dysuria, frequency or incontinence GERIATRIC CARE MANAGER: Negative for abnormal vaginal bleeding, abnormal vaginal [...] diet of 1000 mg/day for under 50, 6518-6426 mg/day for 50+ - Follow up for [...] 629.81, ICD10: N96 Following up regularly with [facility] GERIATRIC CARE MANAGER. Will obtain records regarding previous workup. F/u PRN. Serafin Mcdonough MD documented in this encounter [facility] History of Past illness Narrative 06-29-2016 Note Date & Type Note Facility documented as of this encounter (statuses as of 08/16/2022) [facility] Evaluation note Note Date & Type Note Facility documented in this encounter [facility] Evaluation note Note Date & Type Note Facility documented in this encounter [facility] Evaluation note Note Date & Type Note Facility documented in this encounter [facility] Summary Purpose Family History No Family History Records FoundNo Family History Records FoundNo Family History Records FoundNo Family History Records Found Advance Directives No Advanced Directives Records FoundNo Advanced Directives Records FoundNo Advanced Directives Records FoundNo Advanced Directives Records Found Additional Source Comments INFORMATION SOURCE (unrecogn ized section and content) DATE CREATED AUTHOR AUTHOR'S ORGANIZ ATION 04/15/2021 [facility] DATE CREATED AUTHOR AUTHOR'S ORGANIZ ATION 08/23/2022 [facility] DATE CREATED AUTHOR AUTHOR'S ORGANIZ ATION 03/31/2023 [facility] Source Comments (unrecognize d section and content) In the event this informatio n is protected by the Federal Confidentiality of Alcohol and Drug Abuse Patient Records regulations: The Federal rules restrict any use of the information to criminally investigate or prosecute any alcohol or drug abuse patient.[facility] Reason for Visit (unrecogniz ed section and content) Care Teams (unrecognized sec tion and content) Director Of Music Relationship Specialty Start Date End Date Angy Morales MD [address] [place] [address] PCP - General Obstetrics and Gynecology 03/29/23 [...] BE BASED ON THE PRIMARY CLINICAL RECORDS. [facility]. provides no warranty or guarantee of the accuracy or completeness of information in this document.
[2023-07-21 16:10] LABS: Testosterone, % Free 4.19 % (0.50-2.80); Testosterone, Free 0.42 ng/dL (0.10-0.85); Testosterone, Total 10 ng/dL (8-60)
== END | disposition home or self-care (01) ==
LOC: LAB 08:22
PROVIDERS: PCP Family Medicine; Referring Provider Obstetrics & Gynecology; Visit Provider Obstetrics & Gynecology
DX: E28.9 Ovarian dysfunction, unspecified (principal)
CPT/HCPCS: 36415; 82627; 82670; 84402; 84403; 82626

== ENCOUNTER → 2023-08-29 | Outpatient (CLI) | payer OTHER, SELFPAY ==
[2023-08-29 08:08] LABS: Progesterone Level 12.46 ng/mL (See Comment)
== END | disposition home or self-care (01) ==
LOC: LAB 07:26
PROVIDERS: PCP Family Medicine; Referring Provider Obstetrics & Gynecology; Visit Provider Obstetrics & Gynecology
DX: E28.9 Ovarian dysfunction, unspecified (principal)
CPT/HCPCS: 36415; 84144

== ENCOUNTER → 2023-09-09 | Outpatient (CLI) | payer OTHER, SELFPAY ==
[2023-09-09 09:33] LABS: Estradiol 155.8 pg/mL
[2023-09-09 09:55] LABS: hCG Titer Quant., Serum 1746 mIU/mL (1-3)
[2023-09-13 15:09] LABS: Testosterone, % Free 3.18 % (0.50-2.80); Testosterone, Free 0.95 ng/dL (0.10-0.85); Testosterone, Total 30 ng/dL (8-60)
== END | disposition home or self-care (01) ==
PROVIDERS: PCP Family Medicine; Referring Provider Obstetrics & Gynecology; Visit Provider Obstetrics & Gynecology
DX: N92.6 Irregular menstruation, unspecified (principal); E28.9 Ovarian dysfunction, unspecified; N96 Recurrent pregnancy loss
CPT/HCPCS: 36415; 82627; 82670; 84144; 84402; 84403; 84702; 82626

== ENCOUNTER → 2023-09-15 | Outpatient (CLI) | payer OTHER, SELFPAY ==
[2023-09-15 10:09] LABS: Estradiol 171.7 pg/mL
[2023-09-15 11:16] LABS: hCG Titer Quant., Serum 13077 mIU/mL (1-3)
[2023-09-16 08:10] LABS: PROGESTERONE 16.7 ng/mL (.)
== END | disposition home or self-care (01) ==
LOC: LAB 08:32
PROVIDERS: PCP Family Medicine; Referring Provider Obstetrics & Gynecology; Visit Provider Obstetrics & Gynecology
DX: N92.6 Irregular menstruation, unspecified (principal); N96 Recurrent pregnancy loss; E28.9 Ovarian dysfunction, unspecified
CPT/HCPCS: 36415; 82670; 84144; 84702

== ENCOUNTER → 2023-09-22 | Outpatient (CLI) | payer OTHER, SELFPAY ==
[2023-09-22 09:13] LABS: Estradiol 455.3 pg/mL
[2023-09-23 05:07] LABS: HCG BETA-SUBUNIT QUANT. 59719 mIU/mL (.); PROGESTERONE 25.6 ng/mL (.)
== END | disposition home or self-care (01) ==
LOC: LAB 06:51
PROVIDERS: PCP Family Medicine; Referring Provider Obstetrics & Gynecology; Visit Provider Obstetrics & Gynecology
DX: N92.6 Irregular menstruation, unspecified (principal); N96 Recurrent pregnancy loss; E28.9 Ovarian dysfunction, unspecified
CPT/HCPCS: 36415; 82670; 84144; 84702

== ENCOUNTER → 2023-09-26 | Outpatient (CLI) | payer OTHER, SELFPAY ==
[2023-09-28 07:08] LABS: Chlamydia By Nucleic Acid AMP Negative (Negative); Gonococcus By Nucleic Acid AMP Negative (Negative)
== END | disposition home or self-care (01) ==
LOC: LABSPEC 10:43
PROVIDERS: PCP Family Medicine; Referring Provider Obstetrics & Gynecology; Visit Provider Obstetrics & Gynecology
DX: O09.90 Supervision of high risk pregnancy, unspecified, unspecified trimester (principal); Z3A.00 Weeks of gestation of pregnancy not specified
CPT/HCPCS: 87086; 87491; 87591

== ENCOUNTER → 2023-10-10 | Outpatient (CLI) | payer OTHER, SELFPAY | END | disposition home or self-care (01) | LOC: LABSPEC 16:56 | PROVIDERS: PCP Family Medicine; Referring Provider Advanced Practice Midwife; Visit Provider Advanced Practice Midwife | DX: O09.90 Supervision of high risk pregnancy, unspecified, unspecified trimester (principal); Z3A.00 Weeks of gestation of pregnancy not specified | CPT/HCPCS: 87086 ==

== ENCOUNTER → 2023-10-17 | Outpatient (CLI) | payer OTHER, SELFPAY ==
[2023-10-17 07:53] LABS: Absolute Lymphocyte Count 1.74 X10^3/uL (0.83-4.51); Absolute Neutrophil Count 6.4 X10^3/uL (2.0-7.7); Basophil# 0.04 X10^3/uL; Basophil% 0.4 % (0-1); Eosinophils% 1.1 % (0-5); Hematocrit 37.1 % (37-47); Hemoglobin 12.3 g/dL (12.0-15.0); Lymphocyte # 1.74 X10^3/ul (0.83-4.51); Lymphocyte % 19.5 % (19-41); Mean Corp Hgb Conc 33.2 g/dL (32-36); Mean Corpuscular Hgb 29.5 pg (27.0-32.0); Mean Platelet Vol. 10.4 fl (6.2-12.0); Monocyte# 0.61 X10^3/uL; Monocyte% 6.8 % (0-10); NRBC Flagged by Analyzer 0 % (0-5); Neutrophil # 6.39 X10^3/uL (2.7-7.7); Neutrophil % 71.8 % (47-70); Platelet Count 200 K/mm3 (150-450); RBC Distribution Width CV 12.2 % (11.6-14.6); RBC Distribution Width SD 39.8 fl (35.1-43.9); Red Blood Count 4.17 M/mm3 (4.2-5.4); White Blood Count 8.9 K/mm3 (4.4-11.0)
[2023-10-17 09:20] LABS: HIV - WCH Non-Reactive (Nonreactive); Hepatitis B Surface Antigen Non-Reactive (Nonreactive); Hepatitis C Antibody Non-Reactive (Nonreactive); Rubella IgG Reactive (Nonreactive); Syphilis Antibodies Non-reactive
[2023-10-20 05:07] LABS: Anti-Cardiolipin Ab, IgG, Qn < 9 GPL U/mL (0-14); Anti-Cardiolipin Ab, IgM, Qn < 9 MPL U/mL (0-12); Beta-2-Glycoprotein I IgA <9 (0-25); Beta-2-Glycoprotein I IgG <9 (0-20); Beta-2-Glycoprotein I IgM <9 (0-32); Dilute Russell Viper Venom 34.4 sec (0.0-47.0); Interpretation Comment: (.); PTT-LA 29.7 sec (0.0-43.5); Thrombin Time 16.2 sec (0.0-23.0); dPT Confirm Ratio 1.15 Ratio (0.00-1.34)
== END | disposition home or self-care (01) ==
LOC: LAB 07:02
PROVIDERS: Advanced Practice Midwife; Obstetrics & Gynecology; PCP Family Medicine; Referring Provider Obstetrics & Gynecology; Visit Provider Obstetrics & Gynecology
DX: O26.20 Pregnancy care for patient with recurrent pregnancy loss, unspecified trimester (principal); Z3A.00 Weeks of gestation of pregnancy not specified; O09.90 Supervision of high risk pregnancy, unspecified, unspecified trimester
CPT/HCPCS: 84144; 85025; 86146; 86147; 86703; 86762; 86780; 86803; 86850; 86900; 86901; 87340

== ENCOUNTER 2023-10-29 10:38 | Emergency (ER) | payer OTHER, SELFPAY ==
[2023-10-29 10:39] VITALS: BP 118/67; PULSE 100; RESP 16; TEMP 36.4; O2SAT 100; BMI 25.1
--- NOTE | 2023-10-29 11:04 | US_ITS ---
INDICATION: bleeding EXAMINATION: Ultrasound US OB Less Than 14 Weeks TECHNIQUE: Transabdominal pelvic ultrasound was performed. Grayscale, spectral waveform, and color flow Doppler evaluation of the adnexa. COMPARISON: Prior study dated: 09/26/2023 LMP: [08/07/2023 Beta-hCG: Unknown FINDINGS: UTERUS: 13 x 13 x 7 cm. RIGHT OVARY: Not visualized. LEFT OVARY: 4 x 2.5 x 1.5 cm. Normal. FREE FLUID: None. INTRAUTERINE GESTATIONAL SAC(s) (size/shape): Single. The sac measures 7.2 cm in mean sac diameter.. YOLK SAC: Not identified POLE: Identified CRL 6 mm. ESTIMATED GESTATION AGE: 13 weeks and 1 day. HEART MOTION: 166 bpm. PLACENTA: Not visualized due to age. SUBCHORIONIC HEMORRHAGE: None. AMNIOTIC FLUID: Qualitatively normal. US/Init OB < 14Wks US IMPRESSION: Single live intrauterine . Estimated gestational age is 13 weeks and 1 day. The FATOU is 04/26/2024. Electronically Signed: Sylvester Crowe MD at 12:34 EDT ,
[2023-10-29 12:08] LABS: Bacteria 0 SEEN /hpf (None Seen); Mucous, Urine 0 SEEN /hpf (<or=2+); Red Blood Cells-Urine 0 SEEN /hpf (0-5); Squamous Epithelial Cells - UA 0 SEEN /hpf (5-10); White Blood Cells 0 SEEN /hpf (0-5)
[2023-10-29 12:18] LABS: Color, Urine Yellow (Yellow); Glucose, Dipstick Normal (Normal); Ketone-Dipstick Negative (Negative); Leukocyte Esterase-Dipstick Negative /ul (Negative); Nitrite-Dipstick Negative (Negative); Occult Blood-Urine 25 /ul (Negative); Protein-Dipstick Negative (Negative); Specific Gravity, Urine 1.015 (1.002-1.030); Urine Bilirubin Dipstick Negative (Negative); Urine Clarity Clear (Clear); Urine Urobilinogen Normal (Normal)
[2023-10-29 12:30] VITALS: BP 118/76; PULSE 72; RESP 16; O2SAT 97
--- NOTE | 2023-10-29 12:52 | ED.VIS.FEGU ---
HPI HPI - Female History of Present Illness Chief Complaint: Vag Bld, Preg Informant: patient Pain Pain: Negative for Pelvic Pain Bleeding Issue: Positive for Vaginal bleeding Narrative Narrative: Patient presents secondary to bleeding during . She is approximate 12 weeks . She has had problems with multiple prior miscarriages. She is . Patient started noticing some spotting yesterday. She is not having any cramping. Blood type is O+. PFSH PFS Medical History Ectopic History of recurrent miscarriages Infertility Home Medications ?Medication ?Instructions ?Recorded ?Last Taken ?Type enoxaparin 40 mg/0.4 mL 40 mg subcut DAILY 09/22/23 Unknown History subcutaneous syringe (Lovenox) metformin 1,000 mg tablet 1,000 mg PO DAILY 09/22/23 Unknown History multivitamin no.47-iron fum 27 cap PO 09/22/23 Unknown History mg-folate no.1 1 mg-dha 300 mg capsule (PNV-DHA) prasterone (dhea) 25 mg capsule 25 mg PO DAILY 09/22/23 Unknown History progesterone micronized 200 mg 400 mg vaginal QHS 09/22/23 Unknown History capsule Allergy/AdvReac Type Severity Reaction Status Date / Time ondansetron (From Zofran) Allergy Hives Verified 10/29/23 10:41 Surgical History Delivery by section S/P laparoscopic surgery (~02/23/22) H/O dilation and curettage S/P foot surgery, left Social History adopted: No household members: spouse and children number of children: 1 current occupational status: employed 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 current occupational exposures/hazards: No pets and animals: Yes pets and animals: dog(s) history of recent travel: Yes ([place] in August) out of state: Yes out of country: No sexually active: Yes Smoking Status: Never smoker alcohol intake: never substance use type: does not use well-balanced diet: daily or most days caffeine: No eating out: rarely or never during the past year weight has: remained stable what type of physical activity do you participate in: none sarita/rastafarian: None seatbelt use: always do you feel safe at home: Yes 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 ROS ROS ED Constitutional Constitutional ED: Denies chills or fever(s) Eyes Eyes: Denies change in vision ENT ENT ED: Denies rhinorrhea or sore throat Cardiovascular Cardiovascular: Denies chest pain or palpitations Respiratory/Chest Respiratory/Chest: Denies cough or dyspnea Gastrointestinal Gastrointestinal: Denies abdominal pain, nausea or vomiting Musculoskeletal Musculoskeletal: Denies back pain or extremity pain Integumentary Denies Abrasions or rash Neurologic Neurologic: Denies headache(s) or weakness Allergic/Immunologic Allergic/Immunologic ED: Denies lip swelling or urticaria EXAM Physical Exam Const Vital Signs: 10/29/23 10:39 10/29/23 12:30 10/29/23 14:00 Temperature 97.6 F L 98.1 F Temperature Source Temporal Pulse Rate 100 72 70 Respiratory Rate 16 16 16 Blood Pressure 118/67 118/76 120/78 Blood Pressure Mean 84 90 92 Pulse Ox 100 97 98 Oxygen Delivery Method Room Air Room Air Positive well nourished and well developed General Appearance ED: well developed HEENT Reports moist mucous membranes Eyes EOMs intact bilaterally Chest Wall inspection of chest normal and palpation of chest normal Resp normal respiratory effort and clear to auscultation bilaterally Cardio regular rate and regular rhythm GI soft to palpation and non-tender Extremity normal to inspection Neuro oriented x3 and no sensory deficits noted Motor Exam: strength 5/5 throughout Psych mental status grossly normal Skin no rashes or lesions noted MDM MDM MDM Narrative Medical decision making narrative: Urinalysis obtained and reveals no evidence of acute infection. Pelvic ultrasound obtained to evaluate for demise, missed , or placental bleed. Pelvic ultrasound reveals single live intrauterine with estimated gestational age of 13 weeks. heart rate is 166. Test results discussed with the patient. She will follow-up with her BOILER/CHILLER TECHNICIAN. Return instructions provided. Lab Data Labs: Laboratory Results - last 24 hr 10/29/23 12:02 Urine Color Yellow Urine Clarity Clear Urine pH 8.0 Ur Specific [place] 1.015 Urine Protein Negative Urine Glucose (UA) Normal Urine Ketones Negative Urine Occult Blood 25 H Urine Nitrite Negative Urine Bilirubin Negative Urine Urobilinogen Normal Ur Leukocyte Esterase Negative Urine RBC 0 SEEN Urine WBC 0 SEEN Ur Squamous Epith Cells 0 SEEN Urine Bacteria 0 SEEN Urine Mucus 0 SEEN Radiography Diagnostic Testing: Clinical Impression(s) from Imaging Studies Obstetrics Ultrasound 10/29/23 11:04 IMPRESSION: Single live intrauterine . Estimated gestational age is 13 weeks and 1 day. The FATOU is 04/26/2024. Electronically Signed: Sylvester Crowe MD at 12:34 EDT , Discharge Plan Triage Chief Complaint: Vag Bld, Preg ED Provider: Rose John Dx/Rx/DC Orders Clinical Impression: Threatened miscarriage Instructions: Miscarriage Threatened Prescriptions: No Action PNV-DHA 27 mg iron-1 mg -300 mg capsule PO progesterone micronized 200 mg capsule 400 mg vaginal QHS prasterone (dhea) 25 mg capsule 25 mg PO DAILY enoxaparin [Lovenox] 40 mg/0.4 mL syringe 40 mg subcut DAILY metformin 1,000 mg tablet 1,000 mg PO DAILY Primary Care Provider: Jose Maria Mcdonough Referrals: Jose Maria Mcdonough MD [Primary Care Provider] - Nasreen Carmona MD [Med Staff - Active Staff] - 3-5 Days if not improving Print Language: Romanian Disposition Disposition: Home, Self Care Discharge Date/Time: 10/29/23 14:00
[2023-10-29 14:00] VITALS: BP 120/78; PULSE 70; RESP 16; TEMP 36.7; O2SAT 98
== END 2023-10-29 14:00 | disposition home or self-care (01) ==
PROVIDERS: Emergency Provider Emergency Medicine; PCP Family Medicine; Visit Provider Emergency Medicine
DX: O20.0 Threatened abortion (principal); Z3A.13 13 weeks gestation of pregnancy; O09.521 Supervision of elderly multigravida, first trimester; O09.10 Supervision of pregnancy with history of ectopic pregnancy, unspecified trimester
CPT/HCPCS: 76801; 81001; 99282

== ENCOUNTER 2023-10-31 14:55 | Outpatient (RCR) | payer OTHER, SELFPAY ==
[2023-11-02 12:09] LABS: PROGESTERONE 27.6 ng/mL (.)
== END 2023-10-31 18:00 | disposition home or self-care (01) ==
LOC: LAB 14:55
PROVIDERS: PCP Family Medicine; Referring Provider Obstetrics & Gynecology; Visit Provider Obstetrics & Gynecology
DX: O26.20 Pregnancy care for patient with recurrent pregnancy loss, unspecified trimester (principal); N96 Recurrent pregnancy loss; Z3A.00 Weeks of gestation of pregnancy not specified
CPT/HCPCS: 36415; 84144

== ENCOUNTER → 2023-11-15 | Outpatient (CLI) | payer OTHER, SELFPAY ==
[2023-11-16 04:07] LABS: PROGESTERONE 36.5 ng/mL (.)
== END | disposition home or self-care (01) ==
LOC: LAB 07:20
PROVIDERS: PCP Family Medicine; Visit Provider Obstetrics & Gynecology
DX: O26.20 Pregnancy care for patient with recurrent pregnancy loss, unspecified trimester (principal); Z3A.00 Weeks of gestation of pregnancy not specified
CPT/HCPCS: 36415; 84144

== ENCOUNTER → 2023-11-30 | Outpatient (CLI) | payer OTHER, SELFPAY ==
[2023-12-01 08:13] LABS: PROGESTERONE 38.7 ng/mL (.)
== END | disposition home or self-care (01) ==
PROVIDERS: PCP Family Medicine; Referring Provider Obstetrics & Gynecology; Visit Provider Obstetrics & Gynecology
DX: O26.20 Pregnancy care for patient with recurrent pregnancy loss, unspecified trimester (principal); Z3A.00 Weeks of gestation of pregnancy not specified
CPT/HCPCS: 36415; 84144

== ENCOUNTER → 2023-12-14 | Outpatient (CLI) | payer OTHER, SELFPAY ==
[2023-12-16 10:41] LABS: PROGESTERONE 37.4 ng/mL (.)
== END | disposition home or self-care (01) ==
PROVIDERS: PCP Family Medicine; Referring Provider Obstetrics & Gynecology; Visit Provider Obstetrics & Gynecology
DX: R79.89 Other specified abnormal findings of blood chemistry (principal)
CPT/HCPCS: 36415; 84144

== ENCOUNTER 2023-12-28 07:05 | Outpatient (RCR) | payer OTHER, SELFPAY ==
[2023-12-29 08:12] LABS: PROGESTERONE 42.9 ng/mL (.)
== END 2023-12-28 18:00 | disposition home or self-care (01) ==
LOC: LAB 07:05
PROVIDERS: PCP Family Medicine; Referring Provider Obstetrics & Gynecology; Visit Provider Obstetrics & Gynecology
DX: O26.20 Pregnancy care for patient with recurrent pregnancy loss, unspecified trimester (principal); Z3A.00 Weeks of gestation of pregnancy not specified; N96 Recurrent pregnancy loss
CPT/HCPCS: 36415; 84144

== ENCOUNTER 2024-02-01 07:22 | Outpatient (RCR) | payer OTHER, SELFPAY ==
[2024-01-19 11:10] LABS: PROGESTERONE 50.1 ng/mL (.)
[2024-02-02 16:10] LABS: PROGESTERONE 69.3 ng/mL (.)
== END 2024-02-01 18:00 | disposition home or self-care (01) ==
LOC: LAB 07:22
PROVIDERS: PCP Family Medicine; Referring Provider Obstetrics & Gynecology; Visit Provider Obstetrics & Gynecology
DX: R79.89 Other specified abnormal findings of blood chemistry (principal)
CPT/HCPCS: 36415; 84144

== ENCOUNTER → 2024-02-22 | Outpatient (CLI) | payer OTHER, SELFPAY ==
[2024-02-22 15:00] LABS: Absolute Lymphocyte Count 1.36 X10^3/uL (0.83-4.51); Absolute Neutrophil Count 8.3 X10^3/uL (2.0-7.7); Basophil# 0.03 X10^3/uL; Basophil% 0.3 % (0-1); Eosinophil# 0.09 X10^3/uL; Eosinophils% 0.9 % (0-5); Hematocrit 34.6 % (37-47); Hemoglobin 11.3 g/dL (12.0-15.0); Lymphocyte # 1.36 X10^3/ul (0.83-4.51); Mean Corp Hgb Conc 32.7 g/dL (32-36); Mean Corpuscular Hgb 30.9 pg (27.0-32.0); Mean Corpuscular Volume 94.5 fL (81-99); Monocyte# 0.57 X10^3/uL; Monocyte% 5.4 % (0-10); NRBC Flagged by Analyzer 0 % (0-5); Neutrophil # 8.26 X10^3/uL (2.7-7.7); Neutrophil % 78.8 % (47-70); Platelet Count 176 K/mm3 (150-450); RBC Distribution Width CV 12.6 % (11.6-14.6); RBC Distribution Width SD 43.3 fl (35.1-43.9); Red Blood Count 3.66 M/mm3 (4.2-5.4); White Blood Count 10.5 K/mm3 (4.4-11.0)
[2024-02-22 15:09] LABS: Glucose Challenge Gest 1H 50g 135 mg/dL (70-140)
[2024-02-23 13:16] LABS: HIV - WCH Non-Reactive (Nonreactive); Syphilis Antibodies Non-reactive
== END | disposition home or self-care (01) ==
LOC: LAB 13:59
PROVIDERS: Obstetrics & Gynecology; PCP Family Medicine; Referring Provider Obstetrics & Gynecology; Visit Provider Obstetrics & Gynecology
DX: O09.92 Supervision of high risk pregnancy, unspecified, second trimester (principal); Z13.1 Encounter for screening for diabetes mellitus; Z3A.20 20 weeks gestation of pregnancy
CPT/HCPCS: 36415; 82950; 85025; 86703; 86780

== ENCOUNTER → 2024-02-27 | Outpatient (CLI) | payer OTHER, SELFPAY ==
[2024-02-27 07:36] LABS: Bedside Glucose 80 mg/dL (74-106)
[2024-02-27 08:05] LABS: Glucose GTT-Gestation. Fasting 82 mg/dL (<105)
[2024-02-27 09:05] LABS: Glucose GTT-Gestational 1 Hr 153 mg/dL (<190)
[2024-02-27 09:49] LABS: Glucose GTT-Gestational 2 Hr 122 mg/dL (<165)
[2024-02-27 12:12] LABS: Glucose GTT-Gestational 3 Hr 23 L (<145)
== END | disposition home or self-care (01) ==
LOC: LAB 06:53
PROVIDERS: PCP Family Medicine; Referring Provider Obstetrics & Gynecology; Visit Provider Obstetrics & Gynecology
DX: Z13.1 Encounter for screening for diabetes mellitus (principal)
CPT/HCPCS: 36415; 82951; 82952; 82962

== ENCOUNTER 2024-02-29 07:23 | Outpatient (RCR) | payer OTHER, SELFPAY ==
[2024-02-16 08:12] LABS: PROGESTERONE 74.9 ng/mL (.)
[2024-03-01 15:09] LABS: PROGESTERONE 90.8 ng/mL (.)
== END 2024-02-29 18:00 | disposition home or self-care (01) ==
LOC: LAB 07:23
PROVIDERS: PCP Family Medicine; Referring Provider Obstetrics & Gynecology; Visit Provider Obstetrics & Gynecology
DX: R79.89 Other specified abnormal findings of blood chemistry (principal)
CPT/HCPCS: 36415; 84144

== ENCOUNTER → 2024-04-15 | Outpatient (CLI) | payer OTHER, SELFPAY | END | disposition home or self-care (01) | LOC: LABSPEC 16:07 | PROVIDERS: PCP Family Medicine; Referring Provider Obstetrics & Gynecology; Visit Provider Obstetrics & Gynecology | DX: O09.92 Supervision of high risk pregnancy, unspecified, second trimester (principal); Z3A.00 Weeks of gestation of pregnancy not specified | CPT/HCPCS: 87081 ==

== ENCOUNTER → 2024-04-18 | Outpatient (CLI) | payer OTHER, SELFPAY ==
--- NOTE | 2024-04-18 12:21 | US_ITS ---
STUDY: SECOND AND THIRD TRIMESTER OBSTETRICAL ULTRASOUND - LIMITED REASON FOR EXAM: Female, 38 years old growth LMP: 08/07/2023 PRIOR ULTRASOUND: 10/29/2023 TECHNIQUE: Transabdominal TECHNICAL QUALITY: Adequate. FINDINGS: There is a single intrauterine fetus. The fetus is in a cephalic presentation. There is demonstrated cardiac activity with a heart rate of 140 bpm. There is a normal amniotic fluid volume. The largest amniotic fluid pocket measures 5.3 cm. The amniotic fluid index (NARAYAN) is 10.2 cm. The placenta is anterior in location and is not low lying. There are Grade 2 placental changes. The cervix measures cm in length. BIOMETRY: BPD: 9.0 cm: 36 weeks, 2 days HC: 32.5 cm: 36 weeks, 5 days AC: 34.6 cm: 38 weeks, 3 days FL: 6.9 cm: 35 weeks, 2 days Age by LMP: 36 weeks, 3 days. FATOU by LMP: 05/13/2024. age by prior US: weeks, days. FATOU by prior US: . age by current US: 36 weeks, 3 days. FATOU by current US: 05/13/2024. Estimated weight: 3207 grams, +/- 481 grams, 78 percentile. Gender: US/OB Limited With Biometrics IMPRESSION: Living of 36 weeks 3 days as described above. Electronically Signed: Oscar Tovar MD at 9:56 EST ,
== END | disposition home or self-care (01) ==
LOC: OPUS 12:20
PROVIDERS: PCP Family Medicine; Referring Provider Advanced Practice Midwife; Visit Provider Advanced Practice Midwife
DX: O99.113 Other diseases of the blood and blood-forming organs and certain disorders involving the immune mechanism complicating pregnancy, third trimester (principal); D68.59 Other primary thrombophilia; Z3A.36 36 weeks gestation of pregnancy
CPT/HCPCS: 76816

== ENCOUNTER → 2024-04-23 | Outpatient (CLI) | payer OTHER, SELFPAY ==
[2024-04-23 09:24] LABS: Glucose Challenge Gest 1H 50g 97 mg/dL (70-140)
== END | disposition home or self-care (01) ==
LOC: LAB 08:44
PROVIDERS: PCP Family Medicine; Referring Provider Advanced Practice Midwife; Visit Provider Advanced Practice Midwife
DX: O09.92 Supervision of high risk pregnancy, unspecified, second trimester (principal); Z3A.00 Weeks of gestation of pregnancy not specified
CPT/HCPCS: 36415; 82950

== ENCOUNTER 2024-05-06 05:13 | Inpatient (IN) | payer OTHER, SELFPAY ==
[2024-05-06] VITALS (17 sets, daily range): BP systolic 100–130; BP diastolic 61–79; PULSE 78–107; RESP 13–18; TEMP 35.7–37.4; O2SAT 97–100; BMI 33.4
[2024-05-06] MEDS: Lactated Ringers 1,000 ML 999 ML IV (05:50)
[2024-05-06 06:02] LABS: Absolute Lymphocyte Count 1.88 X10^3/uL (0.83-4.51); Absolute Neutrophil Count 7.3 X10^3/uL (2.0-7.7); Basophil# 0.03 X10^3/uL; Basophil% 0.3 % (0-1); Eosinophil# 0.11 X10^3/uL; Eosinophils% 1.1 % (0-5); Hematocrit 32.8 % (37-47); Hemoglobin 11.1 g/dL (12.0-15.0); Lymphocyte # 1.88 X10^3/ul (0.83-4.51); Lymphocyte % 18.7 % (19-41); Mean Corp Hgb Conc 33.8 g/dL (32-36); Mean Corpuscular Hgb 31.4 pg (27.0-32.0); Mean Corpuscular Volume 92.7 fL (81-99); Mean Platelet Vol. 10.6 fl (6.2-12.0); Monocyte# 0.65 X10^3/uL; Monocyte% 6.5 % (0-10); NRBC Flagged by Analyzer 0 % (0-5); Neutrophil # 7.26 X10^3/uL (2.7-7.7); Neutrophil % 72.3 % (47-70); Platelet Count 151 K/mm3 (150-450); RBC Distribution Width CV 13.2 % (11.6-14.6); RBC Distribution Width SD 44.7 fl (35.1-43.9); Red Blood Count 3.54 M/mm3 (4.2-5.4)
[2024-05-06] MEDS: Sodium Citrate/Citric Acid 30 ML UDC PO (06:52)
[2024-05-06] MEDS: Acetaminophen 500 MG Tablet 1000 MG PO ×3 (06:52→18:44)
--- NOTE | 2024-05-06 07:17 | HP.PCM.OB_ITS ---
HPI - General General Date of Admission: 05/06/24 HPI Narrative MARVIN OSWALD, is a 38 y/o @ 39 weeks 0 days who presents to L&D for a repeat section Maternal Data Information FATOU Calculator Estimated Delivery Date Method Current WG Current Estimate 05/13/24 LMP (Certain) 39w 0d PFSH PFSH Medical History Ectopic History of recurrent miscarriages Infertility Home Medications ?Medication ?Instructions ?Recorded ?Last Taken ?Type enoxaparin 40 mg/0.4 mL 40 mg subcut DAILY low proteines 09/22/23 Unknown History subcutaneous syringe (Lovenox) multivitamin no.47-iron fum 27 1 cap PO DAILY pregancy 09/22/23 Unknown History mg-folate no.1 1 mg-dha 300 mg capsule (PNV-DHA) aspirin 81 mg tablet,delayed 81 mg PO QDAY preganancy 02/23/24 Unknown History release (Adult Aspirin Regimen) Allergy/AdvReac Type Severity Reaction Status Date / Time ondansetron (From Zofran) AdvReac Unknown PT UNSURE Verified 05/06/24 05:25 OF REACTION Surgical History Delivery by section S/P laparoscopic surgery (~02/23/22) H/O dilation and curettage S/P foot surgery, left Social History adopted: No household members: spouse and children number of children: 1 current occupational status: employed 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 current occupational exposures/hazards: No pets and animals: Yes pets and animals: dog(s) history of recent travel: Yes ([place] in [place]) out of state: Yes out of country: No sexually active: Yes Smoking Status: Never smoker alcohol intake: never substance use type: does not use well-balanced diet: daily or most days caffeine: No eating out: rarely or never during the past year weight has: remained stable what type of physical activity do you participate in: none sarita/christianity: None seatbelt use: always do you feel safe at home: Yes additional social history: Rick - [employer] History 10 Elective abortions Hx Para 1 Spontaneous abortions 5 Hx # Term Pregnancies Ectopic pregnancies 3 Hx # Pregnancies Multiple births # of living children 1 Past Pregnancies Del. Date Name GA/Weeks Outcome Route Bth Weight Infant Gen Labor Lgth Anesthesia Del Josefina Provider FOB 03/04/19 Ronit 40 live - full term 8lbs 10oz Female epidural [facility] Delivery Date: 03/04/19 Last Updated by: Nuvia Pope CPD FTP intolerance to labor AoD 7cm LTCS MIld PPH due to low uterine incision Visit Details Expected Delivery Route/Plan RLTCS with JV Labor Preferences- CB/BF classes: no labor support person: Rick labor intervention preferences: [] pain management options preferred: scheduled c section cut cord/dad catch: [] : yes PP control planned: considering tubal removal discussed possible routes of delivery and associated risks: [] special requests: [] Plans Covid status: [] Flu vaccine: given Tdap vaccine: given Rhogam: NA LARC form signed: yes Problem list reviewed and updated with the most current plan of care details and appropriate orders placed. Relevant counseling for the gestational age provided. Continue routine care and follow up unless otherwise noted in visit notes/problem list details OB Flowsheet Initial Weight: Not Recorded Date -?-?-?-?-?-?-?-?-?-?-?-?- EGA Weight BP Urine Prot -?-?-?-?-?-?--?-?-?-?-?-?- Glucose FHR FuHt Pres Dilation -?-?-?-?-?-?-?-?-?-?-?-?- Effaced St Visit Note 09/26/23 -?-?-?-?-?-?-?-?-?-?-?-?- 7w 1d 156 lb 113/71 -?-?-?-?-?-?-?-?-?-?-?-?- 153 -?-?-?-?-?-?-?-?-?-?-?-?- JV- CRL consiste nt with LMP. on progesterone, dhea and lovenox per Dr. lorie shaffer. rto in 1 week for rpt heart beat check and to discuss possibly stopping the dhea after further research. desires NIPT 10/10/23 -?-?-?-?-?-?-?-?-?-?-?-?- 9w 1d 159 lb 117/72 -?-?-?-?-?-?-?-?-?-?-?-?- 176 -?-?-?-?-?-?-?-?-?-?-?-?- KW- CRL cons wit h dates. Discussed dhea use with JWaldemar who spoke with Jeremy Crum and decided to continue use until 12 weeks gestation. NIPT box given today. plan 2 week follow ups until 16 weeks for multiple SABs 10/23/23 -?-?-?-?-?-?-?-?-?-?-?-?- 11w 0d 161 lb 4 oz 132/74 Nega tive -?-?-?-?-?-?-?-?-?-?-?-?- Negative 186 -?-?-?-?-?-?-?-?-?-?-?-?- JV- CRL consiste nt with LMP. nipt is pending. stop progesterone and dhea next week. 11/06/23 -?-?-?-?-?-?-?-?-?-?-?-?- 13w 0d 164 lb 6 oz 128/78 Nega tive -?-?-?-?-?-?-?-?-?-?-?-?- Negative 168 -?-?-?-?-?-?-?-?-?-?-?-?- -Had light spo tting X 1 last week, none since. Brief US confirm live IUP 11/30/23 -?-?-?-?-?-?-?-?-?-?-?-?- 16w 3d 169 lb 2 oz 119/83 Nega tive -?-?-?-?-?-?-?-?-?-?-?-?- Negative 144 -?-?-?-?-?-?-?-?-?-?-?-?- J- pt requested bedside scan. no bleeding or cramping. has anatomy scan scheduled fro 12/14/23. 12/28/23 -?-?-?-?-?-?-?-?-?-?-?-?- 20w 3d 179 lb 123/66 -?-?-?-?-?-?-?-?-?-?-?-?- 140 -?-?-?-?-?-?-?-?-?-?-?-?- SM- no vb some l ower abdominal discomfort 01/23/24 -?-?-?-?-?-?-?-?-?-?-?-?- 24w 1d 188 lb 8 oz 110/70 Nega tive -?-?-?-?-?-?-?-?-?-?-?-?- Negative 142 24 -?-?-?-?-?-?-?-?-?-?-?-?- MH-No VB. LOF. G ood FM. flu vac given. Larc 02/23/24 -?-?-?-?-?-?-?-?-?-?-?-?- 28w 4d 195 lb 122/81 Negative -?-?-?-?-?-?-?-?-?-?-?--?- Negative 140 28 -?-?-?-?-?-?-?-?-?-?-?-?- SM- no vb lof go od fm no regular ctx 03/05/24 -?-?-?-?-?-?-?-?-?-?-?-?- 30w 1d 199 lb 4 oz 128/71 Nega tive -?-?-?-?-?-?-?-?-?-?-?-?- Negative 140 30 -?-?-?-?-?-?-?-?-?-?-?-?- SM- no vb lof go od fm no regular ctx reviewed history of lovenox injections. questionable protein s deficiency 03/19/24 -?-?-?-?-?-?-?-?-?-?-?-?- 32w 1d 201 lb 6 oz 116/71 Nega tive -?-?-?-?-?-?-?-?-?-?-?-?- Negative 145 32 -?-?-?-?-?-?-?-?-?-?-?-?- KW- no vb/lof/ct x. good fm. growth US ordered for 36 weeks. 04/02/24 -?-?-?-?-?-?-?-?-?-?-?-?- 34w 1d 207 lb 120/78 Negative -?-?-?-?-?-?-?-?-?-?-?-?- Negative 140 34 -?-?-?-?-?-?-?-?-?-?-?-?- SM- no vb lof go od fm nore gualr ctx 04/15/24 -?--?-?-?-?-?-?-?-?-?-?-?- 36w 0d 212 lb 2 oz 130/86 Nega tive -?-?-?-?-?-?-?-?-?-?-?-?- Negative 140 -?-?-?-?-?-?-?-?-?-?-?-?- JV- no lof, vagi nal bleeding, or dec fm. NST reactive. GBS collected. 04/25/24 -?-?-?-?-?-?-?-?-?-?-?-?- 37w 3d 214 lb 138/85 Negative -?-?-?-?-?-?-?-?-?-?-?-?- Negative 140 37 -?-?-?-?-?-?-?-?-?-?-?-?- JV- growth scan showed AC 96th%, overall growth normal however. pt scheduled for a cs. NST reactive. 04/29/24 -?-?-?-?-?-?-?-?-?-?--?-?- 38w 0d 214 lb 8 oz 127/85 Nega tive -?-?-?-?-?-?-?-?-?-?-?-?- Negative 140 -?-?-?-?-?-?-?-?-?-?-?-?- SM- no vb lof go od fm no regular ctx ROS Constitutional Constitutional: Denies change in weight, fatigue, fever(s), headache(s), poor appetite or weakness Eyes Eyes: Denies blurry vision, change in vision, seeing flashes or spots in vision ENT HEENT: Denies dizziness, headache(s), loss taste/smell or sore throat Cardiovascular Cardiovascular: Denies chest pain, dizziness, dyspnea, irregular heart rhythm, leg edema, palpitations, rapid heart rate or vomiting Respiratory/Chest Respiratory/Chest: Denies chest tightness, cough, dyspnea or breast pain Gastrointestinal Gastrointestinal: Denies abdominal pain, anorexia, constipation, cramping, diarrhea, hemorrhoids, vomiting or weight changes Genitourinary Genitourinary: Denies dysuria, flank pain, genital lesions, genital pain, urinary frequency or urinary urgency Musculoskeletal Musculoskeletal: Denies back pain, difficulty walking, joint pain, limited range of motion, muscle cramps or numbness Integumentary Integumentary: Denies lesions or unusual bruising Neurologic Neurologic: Denies abnormal movements, abnormal speech, dizziness, numbness, seizure-like activity or syncope Psychiatric Psychiatric: Denies anxiety, behavioral changes, change in appetite, change in libido, cognitive impairment, confusion, depression, difficulty concentrating, hallucinations or suicidal thoughts Endocrine Endocrinology: Denies excessive sweating, polydipsia or polyuria Hematologic/Lymphatic Hematologic/Lymphatic: Denies easy bleeding, easy bruising or lymphadenopathy Allergic/Immunologic Allergic/Immunologic: Denies itchy eyes, lip swelling, seasonal rhinorrhea, rhinitis, throat swelling, tongue swelling, eczemia, wheezing or asthma Vital Signs Vital Signs Vital Signs: 05/06/24 05:28 05/06/24 05:28 05/06/24 05:28 Temperature Temperature Source Pulse Rate 106 H Respiratory Rate Blood Pressure 125/75 H Blood Pressure Mean BP Systolic 125 BP Diastolic 75 Blood Pressure Source Blood Pressure Position Blood Pressure Location Pulse Ox 97 Oxygen Delivery Method 05/06/24 05:48 Temperature 97.6 F L Temperature Source Temporal Pulse Rate 96 Respiratory Rate 16 Blood Pressure 125/75 H Blood Pressure Mean 91 BP Systolic BP Diastolic Blood Pressure Source Monitor Blood Pressure Position Semi-Fowlers Blood Pressure Location Left Arm Pulse Ox 97 Oxygen Delivery Method Room Air Weight Weight: 213 lb 8 oz Body Mass Index (BMI) 33.4 Physical Exam Const alert, oriented x3, no apparent distress and healthy appearing General Appearance: cooperative; Negative for anxious HEENT normocephalic Face and Sinus: normal facial exam Eyes EOMs intact bilaterally and no scleral icterus General Eye: normal appearance of both eyes Neck full ROM and supple Lymph Lymphatic: no lymphadenopathy noted Chest Chest: abnormal inspection of the chest Resp normal respiratory effort Effort and Inspection: able to speak in complete sentences Cardio regular rate GI soft to palpation and non-tender Inspection: gravid Palpation: soft; Negative for tender external exam normal Amniotic Fluid: ROM+plus Back/Spine no CVA tenderness Extremity normal to inspection, full ROM and no clubbing, cyanosis or edema General Extremity: Negative for calf tenderness or edema Skin Lesions: no lesions Rashes: no rashes Psych mental status grossly normal Labs Labs Labs: Blood Type O POSITIVE Antibody Screen NEGATIVE Hct 32.8 % (37-47) L Hgb 11.1 g/dL (12.0-15.0) L Obstetrics Ultrasound Syphilis Total Ab Non-reactive Rubella IgG Antibody Reactive (Nonreactive) Hep Bs Antigen Non-Reactive (Nonreactive) Hepatitis C Antibody Non-Reactive (Nonreactive) Chlamydia DNA (MARGARTE) Negative (Negative) N.gonorrhoeae DNA (MARGARET) Negative (Negative) HIV 1&2 Antibody Non-Reactive (Nonreactive) Glucose 1 Hr 50 gm 97 mg/dL (70-140) Gest Glucose Tolerance MG/DL Rhogam given: No Miscellaneous Test Assessment & Plan (1) Protein S deficiency: COMMENT: possible, diagnosed by [facility] but was 1 1/2 months after - recommend treating with lovenox 6 weeks and then retesting protein S level 3 months . recommend weekly nsts after 36 and growth US at 36 (2) Abnormal glucose level: COMMENT: 3hr GTT normal (3) Previous delivery affecting : COMMENT: RLTCS scheduled and tubal for 05/06 @ 7:15 with JV (4) History of recurrent miscarriages: (5) Hx of ectopic : (6) Supervision of high-risk : QUALIFIERS: Trimester: second trimester Qualified Code(s): O09.92 - Supervision of high risk , unspecified, second trimester COMMENT: PRR, , FATOU 05/13/24,boy KELI Cottrell, Rick (7) : QUALIFIERS: Weeks of gestation: 38 weeks Qualified Code(s): Z3A.38 - 38 weeks gestation of COMMENT: ordered NIPT, nl anatomy (8) Infertility associated with anovulation: COMMENT: SPONTANEOUS !! s/p IVF x 3 with several miscarriages. Seeing Jeremy Crum for progesterone supp-changing to injection for next 3 weeks. JV/SM aware. (9) Neurological deficit, transient: (10) Migraine: PLAN: Plan After discussing the patient's diagnosis and treatment plan options, patient wishes to proceed with surgical management. I have discussed with the patient the risks, benefits, and alternatives of the procedure which include but are not limited to risks of anesthesia, bleeding, infection, possible damage to bowel, bladder, or surrounding vasculature which could lead to additional surgery to evaluate any complications. Patient agrees to procedure and wishes to proceed.
--- NOTE | 2024-05-06 07:20 | DCINST_ITS ---
Discharge Instructions Diet Discharge Diet: No restrictions DC O2, CPAP, BIPAP needs Home O2 Discharge instructions: No Dressing / Incision Discharge Activity: May Not Drive (for 2 weeks or while taking narcotic pain medications.), May Shower and May Take a Tub Bath (in 7 days.) May resume sexual activity in: 4-6 weeks Weight Bearing Status: Full weight bearing Lifting Restrictions: 20 pounds Dressing / Incision Call your doctor if your incision/area has: Continuous Slow Oozing, Sudden Increased Bleeding, Increased Pain/ Swelling, Increased Redness and Foul Smelling Discharge Call your doctor if you observe: Fever of 101 or Higher and Using more than 1 pad per hour Suture Line Care: Avoid Pulling/Pushing and Avoid Pinching/Bending Cleanse incision/area with: Soap & Water and Keep Dressing Clean & Dry Follow Up Care Please Follow Up With: Rose Mckeon DO When: Call [phone] to make an appointment for an incision check in 1-2 weeks. Test Results: Test results from this visit will be discussed in further detail at your follow- up appointment, if applicable. Discharge Plan Admission Admit Date/Time: 05/06/24 05:06 Primary Reason for Your Visit: section Attending Provider: Rose Mckeon Primary Care Provider: Jose Maria Mcdonough Discharge Orders/Prescriptions Prescriptions: New ibuprofen 800 mg tablet 800 mg PO Q8H PRN (Reason: pain) Qty: 30 0RF oxycodone-acetaminophen [Percocet] 5-325 mg tablet 1 tab PO Q4H PRN (Reason: pain) 7 Days Qty: 20 0RF Rx Instructions: 1-2 tabs q 4 hrs as needed for pain Continued PNV-DHA 27 mg iron-1 mg -300 mg capsule 1 cap PO DAILY enoxaparin [Lovenox] 40 mg/0.4 mL syringe 40 mg subcut DAILY Discontinued aspirin [Adult Aspirin Regimen] 81 mg tablet,delayed release (DR/EC) 81 mg PO QDAY Referrals / Follow Up: Jose Maria Mcdonough MD [Primary Care Provider] - Disposition Disposition (needs filled in before D/C Order can be placed): Home, Self Care
[2024-05-06] MEDS: Cefazolin 2 GM in Syringe IV (07:24)
--- NOTE | 2024-05-06 07:48 | FALS_PTH ---
PATIENT: MARVIN OSWALD LOC: [facility] U#:[id number] AGE/SX: 38/F ROOM: WP004 RE05/06/[address]: Dr. Rose Mckeon DO : 1985 BED: 1 DIS: 05/08/2024 SPEC #: [id number] RECD: 05/06/24 09:54 STATUS: MILDRED ACOSTAPeggy #: [id number] JAQUAN: 05/06/24 07:[address]: Rose Mckeon DEPT: SURGICAL PATHOLOGY RECD BY: Peyton Rob ENTERED: 05/06/24 11:38 SP TYPE: FALL TUBES OTHR DR: Dr. Jose Maria Mcdonough MD Tissues: Fallopian tube Procedures: Surgery Specimen Level II HEADER OPERATION: Tubal ligation PRE-OP DIAGNOSIS: Sterilization TISSUE SUBMITTED: Right fallopian tube MICROSCOPIC DIAGNOSIS Right fallopian tube, salpingectomy: Fallopian tube, no pathologic diagnosis. See comment. MAYKEL 05/07/2024 COMMENT Focal decidual changes are noted. MICROSCOPIC DESCRIPTION Slides are reviewed. GROSS DESCRIPTION Received in fixative is one container labeled with the patient's name and designated Right fallopian tube. The specimen consists of a right fallopian tube including fimbrial end measuring 7.5 cm in length and 0.6 cm in diameter. Sections reveal unremarkable cut surfaces. Mutual Fund Accountant sections are submitted in one cassette. MAYKEL: 05/06/2024 TC:4 CPT: 70858
--- NOTE | 2024-05-06 08:09 | OP.PCM_ITS ---
Assessment & Plan (1) Protein S deficiency: COMMENT: possible, diagnosed by [facility] but was 1 1/2 months after - recommend treating with lovenox 6 weeks and then retesting protein S level 3 months . recommend weekly nsts after 36 and growth US at 36 (2) Abnormal glucose level: COMMENT: 3hr GTT normal (3) Previous delivery affecting : COMMENT: RLTCS scheduled and tubal for 05/06 @ 7:15 with JV (4) History of recurrent miscarriages: (5) Hx of ectopic : (6) Supervision of high-risk : QUALIFIERS: Trimester: second trimester Qualified Code(s): O09.92 - Supervision of high risk , unspecified, second trimester COMMENT: PRR, , FATOU 05/13/24,boy PC Ronit, Rick (7) : QUALIFIERS: Weeks of gestation: 38 weeks Qualified Code(s): Z3A.38 - 38 weeks gestation of COMMENT: ordered NIPT, nl anatomy (8) Infertility associated with anovulation: COMMENT: SPONTANEOUS !! s/p IVF x 3 with several miscarriages. Seeing Jeremy Crum for progesterone supp-changing to injection for next 3 weeks. JV/SM aware. (9) Neurological deficit, transient: (10) Migraine: Maternal Data Information FATOU Calculator Estimated Delivery Date Method Current WG Current Estimate 05/13/24 LMP (Certain) 39w 0d Operative Report (OB) Cecarean Details Procedure Type: low transverse Date of Procedure: 05/06/24 Procedure Start Time: 07:45 Procedure Stop Time: 08:18 Time of Delivery: 07:48 Pre-Operative Diagnosis: Repeat Elective and Desires elective sterilization Post-Operative Diagnosis: Same as Pre-operative diagnosis Classification: Scheduled Type of Anesthesia: Spinal Antibiotic Given: Ancef 2 grams IV x1 Drain: Akers to straight drain Estimated Blood Loss: 1000cc Findings Description of surgery: The patient was brought to the operating room, spinal anesthesia was found to be adequate. She was prepped and draped in the normal sterile fashion and was placed in a dorsal supine position with a leftward tilt. Pfannenstiel skin incision was made with a scalpel and carried through to the underlying layers. The fascia was nicked in the midline and extended laterally using Martin scissors. The anterior aspect of the fascia was grasped with Bola clamps and the underlying rectus muscles dissected off using the Metzenbaum scissors. The rectus muscles were in the midline. Peritoneum was entered sharply. The uterus was identified and a bladder blade was inserted into the abdomen. Bladder flap was created off the uterus using Metzenbaum scissors. A transverse incision was made with a scalpel and extended laterally manually. The 's head was delivered with fundal pressure. The anterior and posterior shoulders were delivered without difficulty. The mouth and nares were bulb suctioned. After a 30 second delay the cord was clamped and cut. The end was handed off to the awaiting master fire control technician for routine assessment. Placenta was delivered manually without difficulty but was noted to be bilobed and sent for pathology analysis. The uterus was exteriorized and cleared of all clots and debris. Incision was closed with an 0 Vicryl suture in a running locked fashion. The right tube was grasped with a Johanna clamp and the underlying mesosalpinx was cauterized and cut with the ligasure device removing the entire tube and fimbriated end. The left fallopian tube was noted to be surgically absent. The uterus was returned to the abdomen. The gutters were cleared of all clots and debris. The peritoneum was closed in a pursestring pattern using a 3-0 Vicryl suture. This muscle was reapproximated with a 3-0 Vicryl. The fascia was closed with a stratafix suture. Subcutaneous tissue layer was irrigated then closed using a plain gut suture. The skin was closed with a 4-0 Monocryl subcuticular stitch. The skin was also sealed with surgical glue. The patient tolerated the procedure well sponge lap and needle counts were correct at each tissue closure plane and the patient is now being brought to the recovery room in stable condition Surgical findings: surgically absent left fallopian tube. Normal uterus, ovaries, and right fallopian tube. Viable male apar scores 9/10 Emily Presentation: Vertex Amniotic Fluid Description: Clear Placental Delivery Description: Manual Removal Specimen collected: Yes Description of specimen(s) removed: right fallopian tube Cord Vessel Description: 3 Vessels Cord Entanglement: None Infant A gender: Male (1 minute): 9 (5 minute): 10 Delayed Cord Clamping: Yes Fish Hatchery Specialist airplane pilot supervisor: Yes Bow Maker Custom: Slava Cardona Tasks completed by international first officer: Closing, Hemostasis: Clamp, Hemostasis: Tie and Retracting Additional construction project assistant?: No Complications Complications: No Multi Select Codes Urinary/Genital Urinary/Genital CPT Codes: 53036 Delivery [facility]
[2024-05-06 08:26] LABS: Syphilis Antibodies Non-reactive
[2024-05-06] MEDS: Oxytocin 15 Units/NS 250ml 15 UNITS/250 ML IV.SOLN 83 UNITS IV (09:03)
[2024-05-06] MEDS: Ketorolac 30 MG/ML Syringe IV ×3 (09:03→21:15)
[2024-05-06 09:54] LABS: Pathology Specimen OB SEE PATHOLOGY REPORT
[2024-05-06] MEDS: Senna/Docusate Sodium 1 Tablet PO (12:40)
[2024-05-06] MEDS: 0.9% Saline Lock 10 ML Syringe IV ×3 (13:13→21:15)
[2024-05-06] MEDS: Enoxaparin 40 MG/0.4 ML Syringe SC (18:45)
[2024-05-07 00:03] VITALS: BP 113/59; PULSE 76; RESP 16; TEMP 36.7; O2SAT 98
[2024-05-07] MEDS: Acetaminophen 500 MG Tablet 1000 MG PO ×4 (00:50→19:53)
[2024-05-07] MEDS: Ketorolac 30 MG/ML Syringe IV (03:27)
[2024-05-07 04:40] VITALS: BP 102/50; PULSE 86; RESP 16; TEMP 36.8; O2SAT 97
[2024-05-07 06:34] LABS: Hematocrit 25.2 % (37-47); Hemoglobin 8.5 g/dL (12.0-15.0); Mean Corp Hgb Conc 33.7 g/dL (32-36); Mean Corpuscular Hgb 32.1 pg (27.0-32.0); Mean Corpuscular Volume 95.1 fL (81-99); Mean Platelet Vol. 10.1 fl (6.2-12.0); Platelet Count 116 K/mm3 (150-450); RBC Distribution Width CV 13.4 % (11.6-14.6); RBC Distribution Width SD 45.7 fl (35.1-43.9); Red Blood Count 2.65 M/mm3 (4.2-5.4); White Blood Count 9.3 K/mm3 (4.4-11.0)
--- NOTE | 2024-05-07 07:38 | PN.OBGYN_ITS ---
Subjective Subjective Patient doing well without complaints. Tolerating PO. Ambulating and voiding without difficulty. Feeding well. Denies chest pain, shortness of breath, calf pain/swelling, fevers, chills, lightheadedness. Objective Data Objective Data Vital Signs: Vital Signs Temp Pulse Resp BP Pulse Ox O2 Del Method 98.3 F 86 16 102/50 L 97 Room Air 05/07/24 04:40 05/07/24 04:40 05/07/24 04:40 05/07/24 04:40 05/07/24 04:40 05/07/24 04:40 Oxygen Delivery Method Room Air Weight: 213 lb 8 oz Body Mass Index (BMI) 33.4 Intake & Output: Intake and Output for Last 24 Hours 05/05/24 05/06/24 05/07/24 23:59 23:59 23:59 Intake Total 1270 / 1270 Output Total 2850 / 2850 Balance -1580 / -1580 Lab / Micro Data Attestation: I reviewed the patient's lab results. 05/07/24 06:15 Labs: Laboratory Results - last 24 hr 05/06/24 05:45: Syphilis Total Ab Non-reactive 05/07/24 06:15: WBC 9.3, RBC 2.65 L, Hgb 8.5 L, Hct 25.2 L, MCV 95.1, MCH 32.1 H , MCHC 33.7, RDW Std Deviation 45.7 H, RDW Coeff of Suad 13.4, Plt Count 116 L, MPV 10.1 ROS Constitutional Constitutional: Reports systems reviewed and no addt'l complaints, except as documented; Denies anorexia or headache(s) Cardiovascular Cardiovascular: Reports systems reviewed and no addt'l complaints, except as documented; Denies dizziness, dyspnea, nausea or tachypnea Respiratory/Chest Respiratory/Chest: Reports systems reviewed and no addt'l complaints, except as documented; Denies cough, dyspnea, shortness of breath at rest or tachypnea Gastrointestinal Gastrointestinal: Reports systems reviewed and no addt'l complaints, except as documented; Denies abdominal pain, constipation or nausea Genitourinary Genitourinary: Reports systems reviewed and no addt'l complaints, except as documented; Denies burning urination, difficulty urinating, dysuria, urinary frequency or urinary incontinence Musculoskeletal Musculoskeletal: Reports systems reviewed and no addt'l complaints, except as documented Integumentary Integumentary: Reports systems reviewed and no addt'l complaints, except as documented Neurologic Neurologic: Reports systems reviewed and no addt'l complaints, except as documented; Denies abnormal speech, dizziness or headache(s) Psychiatric Psychiatric: Reports systems reviewed and no addt'l complaints, except as documented Endocrine Endocrinology: Reports systems reviewed and no addt'l complaints, except as documented Hematologic/Lymphatic Hematologic/Lymphatic: Reports systems reviewed and no addt'l complaints, except as documented Physical Exam Const alert, oriented x3 and no apparent distress Neck full ROM Resp normal respiratory effort, normal air movement and no retractions Effort and Inspection: able to speak in complete sentences and symmetric chest movement GI soft to palpation Inspection: incision intact Bladder / Kidney Exam: bladder normal to palpation Uterus Palpation: uterus fundus firm Extremity normal to inspection and full ROM Psych mental status grossly normal, thought process normal and cooperative Assessment & Plan (1) Status post section: PLAN: s/p LTCS PPD # 1 1. routine post care 2. breast feeding- support given 3. rh positive 4. rubella immune (2) Protein S deficiency: COMMENT: possible, diagnosed by [facility] but was 1 1/2 months after - recommend treating with lovenox 6 weeks and then retesting protein S level 3 months . recommend weekly nsts after 36 and growth US at 36 (3) Abnormal glucose level: COMMENT: 3hr GTT normal (4) Previous delivery affecting : COMMENT: RLTCS scheduled and tubal for 05/06 @ 7:15 with JV (5) History of recurrent miscarriages: (6) Hx of ectopic : (7) Supervision of high-risk : QUALIFIERS: Trimester: second trimester Qualified Code(s): O09.92 - Supervision of high risk , unspecified, second trimester COMMENT: PRR, , FATOU 05/13/24,boy KELI Cottrell, Rick (8) : QUALIFIERS: Weeks of gestation: 38 weeks Qualified Code(s): Z 3A.38 - 38 weeks gestation of COMMENT: ordered NIPT, nl anatomy (9) Infertility associated with anovulation: COMMENT: SPONTANEOUS !! s/p IVF x 3 with several miscarriages. Seeing Jeremy Crum for progesterone supp-changing to injection for next 3 weeks. JV/SM aware. (10) Neurological deficit, transient: (11) Migraine: Charges/Coding Multi Select Codes Urinary/Genital Urinary/Genital CPT Codes: No Charge
[2024-05-07 08:00] VITALS: BP 122/70; PULSE 88; RESP 16; TEMP 37.4; O2SAT 96
[2024-05-07] MEDS: Ibuprofen 600 MG Tablet PO ×3 (09:30→21:21)
[2024-05-07] MEDS: Senna/Docusate Sodium 1 Tablet PO (09:41)
[2024-05-07 12:00] VITALS: BP 126/69; PULSE 84; RESP 16; TEMP 37.4; O2SAT 100
[2024-05-07 17:00] VITALS: BP 123/74; PULSE 84; RESP 16; TEMP 36.7; O2SAT 98
[2024-05-07] MEDS: Enoxaparin 40 MG/0.4 ML Syringe SC (19:54)
[2024-05-07] MEDS: oxyCODONE 5 MG Tablet PO (19:54)
[2024-05-07 21:20] VITALS: BP 122/78; PULSE 85; RESP 16; TEMP 37.2
[2024-05-08 01:20] VITALS: BP 112/70; PULSE 88; RESP 16; TEMP 36.9; O2SAT 98
[2024-05-08] MEDS: oxyCODONE 5 MG Tablet PO ×2 (01:20→10:57)
[2024-05-08] MEDS: Acetaminophen 500 MG Tablet 1000 MG PO ×2 (03:28→08:33)
[2024-05-08] MEDS: Ibuprofen 600 MG Tablet PO ×2 (03:29→08:33)
[2024-05-08 08:20] VITALS: BP 136/77; PULSE 70; RESP 16; TEMP 36.8; O2SAT 97
[2024-05-08] MEDS: Senna/Docusate Sodium 1 Tablet PO (08:33)
--- NOTE | 2024-05-08 09:50 | PCM.DC.SUM ---
Providers Date of Admission: 05/06/24 Primary Care Physician: Dr. Jose Maria Mcdonough MD Reason For Visit: Diagnosis Discharge Diagnosis (1) Status post section: Status: Acute Code(s): Z98.891 - History of uterine scar from previous surgery (2) Protein S deficiency: Status: Acute Code(s): D68.59 - Other primary thrombophilia (3) Abnormal glucose level: Status: Acute Code(s): R73.09 - Other abnormal glucose (4) Previous delivery affecting : Status: Acute Code(s): O34.219 - Maternal care for unspecified type scar from previous delivery (5) History of recurrent miscarriages: Status: Acute Code(s): N96 - Recurrent loss (6) Hx of ectopic : Status: Acute Code(s): Z87.59 - Personal history of other complications of , childbirth and the puerperium (7) Supervision of high-risk : Status: Acute Code(s): O09.90 - Supervision of high risk , unspecified, unspecified trimester Qualifiers: Trimester: second trimester Qualified Code(s): O09.92 - Supervision of high risk , unspecified, second trimester (8) : Status: Acute Code(s): Z34.90 - Encounter for supervision of normal , unspecified, unspecified trimester Qualifiers: Weeks of gestation: 38 weeks Qualified Code(s): Z3A.38 - 38 weeks gestation of (9) Infertility associated with anovulation: Status: Acute Code(s): N97.0 - Female infertility associated with anovulation (10) Neurological deficit, transient: Status: Acute Code(s): R29.818 - Other symptoms and signs involving the nervous system (11) Migraine: Status: Chronic Code(s): G43.909 - Migraine, unspecified, not intractable, without status migrainosus Plan After discussing the patient's diagnosis and treatment plan options, patient wishes to proceed with surgical management. I have discussed with the patient the risks, benefits, and alternatives of the procedure which include but are not limited to risks of anesthesia, bleeding, infection, possible damage to bowel, bladder, or surrounding vasculature which could lead to additional surgery to evaluate any complications. Patient agrees to procedure and wishes to proceed. Medications at Discharge Home Medications enoxaparin 40 mg/0.4 mL subcutaneous syringe (Lovenox) 40 mg subcut DAILY low proteines 09/22/23 multivitamin no.47-iron fum 27 mg-folate no.1 1 mg-dha 300 mg capsule (PNV-DHA) 1 cap PO DAILY pregancy 09/22/23 ibuprofen 800 mg tablet 800 mg PO Q8H PRN pain #30 tabs 05/06/24 oxycodone-acetaminophen 5 mg-325 mg tablet (Percocet) 1 tab PO Q4H PRN pain 7 days #20 tabs 05/06/24 ferrous gluconate 324 mg (37.5 mg iron) tablet 324 mg PO DAILY #30 tabs 05/08/24 Hospital Course Operations section Summary of Care Provided Minutes Spent on Discharge: 15 Hospital Course: The patient was admitted for a repeat section on 05/06/2024. There were no complications. On day #1 she was tolerating pain well and ambulating, on day #2 she was ready for discharge. Physical Exam HEENT normocephalic Resp normal respiratory effort and normal air movement GI soft to palpation, non-tender and non-distended Rectal Exam: other Other Details: Incision is clean, dry, and intact no CVA tenderness Extremity normal to inspection General Extremity: edema bilateral (trace ) Weight / BMI Weight Weight: 213 lb 8 oz Body Mass Index (BMI) 33.4 ABG / Lab / Microbiology Data 05/07/24 06:15 D/C Instructions Discharge Diet: No restrictions Discharge Activity: May Not Drive (for 2 weeks or while taking narcotic pain medications.), May Shower and May Take a Tub Bath (in 7 days.) May resume sexual activity in: 4-6 weeks Weight Bearing Status: Full weight bearing Lifting Restrictions: 20 pounds Call your doctor if your incision/area has: Continuous Slow Oozing, Sudden Increased Bleeding, Increased Pain/ Swelling, Increased Redness and Foul Smelling Discharge Call your doctor if you observe: Fever of 101 or Higher and Using more than 1 pad per hour Suture Line Care: Avoid Pulling/Pushing and Avoid Pinching/Bending Cleanse incision/area with: Soap & Water and Keep Dressing Clean & Dry DC O2, CPAP, BIPAP Needs Home O2 Discharge instructions: No Please Follow Up With: Rose Mckeon DO When: Call [phone] to make an appointment for an incision check in 1-2 weeks. Meaningful Use Info Meaningful Use Meaningful Use Diagnoses (Choose all that apply): None applicable Ischemic Stroke Statin Dosing Therapy Reference: STATIN DOSE THERAPY REFERENCE: * Patients > 75 years receive moderate or high dose statin therapy. * Patients 75 years or YOUNGER should receive HIGH intensity statin dose unless contraindicated. You will be required to document reason for non-treatment if statin daily dose does not meet guidelines. HIGH DOSE STATIN THERAPY DAILY Atorvastatin > than or = to 40 mg Rosuvastatin > than or = to 20 mg Amlodipine + Atorvastatin > than or = to 2.5/40 mg Ezetimibe + Simvastatin 10/80 mg Simvastatin 80mg Discharge Plan Admission Admit Date/Time: 05/06/24 05:06 Primary Reason for Your Visit: section Attending Provider: Rose Mckeon Primary Care Provider: Jose Maria Mcdonough Discharge Orders/Prescriptions Prescriptions: New ibuprofen 800 mg tablet 800 mg PO Q8H PRN (Reason: pain) Qty: 30 0RF oxycodone-acetaminophen [Percocet] 5-325 mg tablet 1 tab PO Q4H PRN (Reason: pain) 7 Days Qty: 20 0RF Rx Instructions: 1-2 tabs q 4 hrs as needed for pain ferrous gluconate 324 mg (37.5 mg iron) tablet 324 mg PO DAILY Qty: 30 3RF Continued PNV-DHA 27 mg iron-1 mg -300 mg capsule 1 cap PO DAILY enoxaparin [Lovenox] 40 mg/0.4 mL syringe 40 mg subcut DAILY Discontinued aspirin [Adult Aspirin Regimen] 81 mg tablet,delayed release (DR/EC) 81 mg PO QDAY Referrals / Follow Up: Jose Maria Mcdonough MD [Primary Care Provider] - Disposition Disposition (needs filled in before D/C Order can be placed): Home, Self Care
== END 2024-05-08 11:40 | disposition home or self-care (01) | DRG 784 ==
PROVIDERS: Admitting Provider Obstetrics & Gynecology; PCP Family Medicine; Referring Provider Obstetrics & Gynecology; Visit Provider Obstetrics & Gynecology
PROC: 0UT50ZZ Resection of Right Fallopian Tube, Open Approach (ICD-10-PCS; CPT 59514; principal; 2024-05-06 07:00)
DX: O34.211 Maternal care for low transverse scar from previous cesarean delivery (principal); O99.12 Other diseases of the blood and blood-forming organs and certain disorders involving the immune mechanism complicating childbirth; D68.59 Other primary thrombophilia; O26.23 Pregnancy care for patient with recurrent pregnancy loss, third trimester; Z3A.38 38 weeks gestation of pregnancy; Z37.0 Single live birth; Z87.59 Personal history of other complications of pregnancy, childbirth and the puerperium
CPT/HCPCS: 59025; 59050; 85025; 85027; 86780; 86850; 86900; 86901; 88302; 99221; A4216; G0378; J2405